=== PATIENT | male | born 1950 | race Caucasian/White ===

== ENCOUNTER → 2019-09-09 14:36 | Outpatient (BNVA) | payer MEDICARE, OTHER, SELFPAY | PROVIDERS: Family Provider Nurse Practitioner; PCP Nurse Practitioner; Visit Provider Urology | DX: R39.9 Unspecified symptoms and signs involving the genitourinary system (principal) | CPT/HCPCS: 81001 ==

== ENCOUNTER 2021-08-04 11:30 | Emergency (ER) | payer MEDICARE, OTHER, SELFPAY ==
--- NOTE | 2021-08-04 11:32 | ECG_ITS ---
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 Measurements Intervals [place] Rate: 63 P: 36 FL: 170 QRS: -24 QRSD: 92 T: 118 QT: 373 QTc: 383 Interpretive Statements SINUS RHYTHM BORDERLINE LEFT AXIS DEVIATION [QRS AXIS < -20] MODERATE ST DEPRESSION [0.05+ mV ST DEPRESSION] ABNORMAL QRS-T ANGLE [QRS-T AXIS DIFFERENCE > 60] Compared to ECG 03/18/2017 16:25:05 ST (T wave) deviation now present Myocardial infarct finding no longer present Electronically Signed On 08-06-2021 7:41:02 DIRECTOR OF CAREER RESOURCES by Dave Webber M.D. [id number]
--- NOTE | 2021-08-04 11:32 | XR_ITS ---
WS: [id number] Exam: XR chest 1V portable [id number] Date/Time of Exam: 08/04/2021 11:44 AM Reason For Exam: chest pain Comparison 06/19/2018 Findings: The lungs are clear and fully expanded. Costophrenic angles are sharp. No infiltrates. Bronchovascula r relief appears normal. Cardiac silhouette is unremarkable. Bony elements are intact. Scattered calc ified granulomas. XR/XR chest 1V portable [id number] IMPRESSION: Unremarkable chest radiograph.
[2021-08-04 11:35] VITALS: BP 117/56; PULSE 68; RESP 18; TEMP 37.1; O2SAT 99; BMI 35.5
--- NOTE | 2021-08-04 11:58 | W.ED.CHESTPA ---
HPI - Chest Pain General: Chief Complaint: Chest Pain Stated Complaint: CHEST PAIN Time Seen by Provider: 08/04/21 11:56 History of Present Illness: HPI narrative: Mr. Wooten is a 70-year-old gentleman with significant past medical history of CAD status post PCI, aortic valve sclerosis, and hypertension who presents to the emergency department due to chest pain. The exact time of onset of chest pain is somewhat unclear though he did wake his up at about 6:30 AM and noted. He describes sharp anterior chest pain which is just to the left of the sternum roughly around the nipple line and an area roughly the size of a fist. This varies in intensity however it is at worst is moderate. There are no specific provoking or exacerbating factors he has baseline shortness of breath that is not worse. He denies infectious symptoms. He does not have associated cold sweats or nausea. He tried nitroglycerin x2 without improvement in pain. Review of Systems General: Reports: 10 or more systems reviewed and unremarkable except in HPI and below PFSH ED PFSH: Medical History Aortic valve sclerosis Benign prostatic hyperplasia with lower urinary tract symptoms Coronary artery disease Essential hypertension H/O hand fracture Hx of aortic valve stenosis Lower urinary tract symptoms Surgical History H/O heart artery stent Family History Family/Other Diabetes CAD (coronary artery disease) Hypertension Cancer Multiple Social History Smoking and tobacco status: former smoker Alcohol intake: never Marital status: Current occupational status: retired Physical Exam Narrative: EXAM NARRATIVE: GENERAL/CONSTITUTIONAL - well-appearing. No acute distress. Obese Eyes - PERRL, no conjunctival injection ENMT - Atraumatic external nose and ears. Moist mucous membranes NECK - supple. trachea midline CARDIOVASCULAR - regular rate and rhythm. Systolic murmur. Normal peripheral perfusion. Trace peripheral edema RESPIRATORY - clear to auscultation bilaterally. No retractions or accessory muscle use. ABDOMEN/GI - Nontender, Nondistended. MSK - Extremities without obvious deformity or tenderness to palpation SKIN - Warm, Dry NEURO - alert and appropriately oriented. Moves all extremities equally. Course ED course: - Patient was seen and evaluated by me at bedside - Patient placed on cardiac monitors, IV access obtained - Initial evaluation notable for exam as noted above - Labs notable for no leukocytosis. No significant metabolic abnormalities to explain the patient's symptoms. Delta troponin negative - Imaging notable for no acute finding on chest x-ray - Upon serial reexamination after treatment the patient was similar to mildly improved - I discussed changes in EKG morphology with cardiology on-call, unclear exact cause however I do wonder the possibility of lead reversal given correction on third EKG - Based on patient history, evaluation, labs, and imaging as interpreted the most likely cause of the patient's condition is chest pain of unclear etiology. I offered admission which the patient declined. I discussed risk stratification of chest pain including the fact that the patient is moderate risk by heart score and requires further evaluation. Patient comfortable based on known estimated risk with outpatient follow-up and outpatient stress test. - The results of ED evaluation were discussed with the patient including prescriptions and/or symptomatic cares (if applicable) including appropriate and responsible use, followup plan, and return precautions. The patient verbalized understanding and felt safe for discharge. - Patient discharged in satisfactory condition. Vital Signs: Vital signs: Vital Signs Temperature 98.7 F 08/04/21 11:35 Pulse Rate 69 08/04/21 16:17 Respiratory Rate 18 08/04/21 16:17 Blood Pressure 130/92 08/04/21 16:17 Pulse Oximetry 96 08/04/21 16:17 MDM - Chest Pain Medical Records: Attestation: I reviewed the patient's medical records. Lab Data: Attestation: I reviewed the patient's lab results. Labs: Lab Results 08/04/21 08/04/21 08/04/21 12:28 12:28 12:28 WBC 6.4 10^3/uL 10^3/ uL (4.0-10.0) RBC 4.88 10^6/uL 10^6 /uL (4.1-5.3) Hgb 14.4 g/dL g/dL (11.7-16.6) Hct 43.3 % % (42.0-52.0) MCV 88.7 fl fl (80-94) MCH 29.5 pg pg (28.0-34.0) MCHC 33.3 g/dL g/dL (30.0-36.0) RDW 11.9 % L % (12.1-15.1) Plt Count 221 10^3/cmm 10^3 /cmm (130-400) MPV 9.5 fL fL (7.4-10.4) Neut % (Auto) 63.8 % % Lymph % (Auto) 23.4 % % [place] % (Auto) 6.3 % % Eos % (Auto) 5.2 % % Baso % (Auto) 1.1 % % Neut # (Auto) 4.09 10^3/uL 10^3 /uL (1.8-7.7) Lymph # (Auto) 1.5 10^3/uL 10^3/ uL (0.8-4.8) Sumner # (Auto) 0.4 10^3/uL 10^3/ uL (0.2-0.9) Eos # (Auto) 0.3 10^3/uL 10^3/ uL (0.0-0.8) Baso # (Auto) 0.1 10^3/uL 10^3/ uL (0.0-0.1) Nucleated RBC % (a uto) 0 % % Nucleated RBCs # 0.0 /100WBC /100W BC Sodium 137 mmol/L mmol/L (136-145) Potassium 4.2 mmol/L mmol/L (3.5-5.1) Chloride 101 mmol/L mmol/L (98-107) Carbon Dioxide 28 mmol/L mmol/L (22-29) Anion Gap 12.2 (5-19) BUN 11 mg/dL mg/dL (8-23) Creatinine 0.8 mg/dL mg/dL (0.7-1.2) GFR Calculation Not Reportable Glucose 111 mg/dL mg/dL (65-115) Calculated Osmolal ity 284 mOsm/kg L mOs m/kg (285-295) Calcium 8.7 mg/dL mg/dL (8.5-10.5) Total Bilirubin 0.3 mg/dL mg/dL (0.15-1.2) AST 16 U/L U/L (0-40) ALT 21 U/L U/L (0-41) Alkaline Phosphata se 77 IU/L IU/L (40-130) Troponin T Baselin e 13 ng/L ng/L (0-15) Troponin T 120 Min [place] Delta Troponin T NT-Pro-B Natriuret Pep 240 pg/mL H pg/mL (0-125) Total Protein 6.7 g/dL g/dL (6.6-8.7) Albumin 4.3 g/dL g/dL (3.5-5.2) Globulin 2.4 g/dL g/dL (1.3-4.6) Lipase 38 U/L U/L (13-60) 08/04/21 14:47 WBC RBC Hgb Hct MCV MCH MCHC RDW Plt Count MPV Neut % (Auto) Lymph % (Auto) Sumner % (Auto) Eos % (Auto) Baso % (Auto) Neut # (Auto) Lymph # (Auto) Sumner # (Auto) Eos # (Auto) Baso # (Auto) Nucleated RBC % (a uto) Nucleated RBCs # Sodium Potassium Chloride Carbon Dioxide Anion Gap BUN Creatinine GFR Calculation Glucose Calculated Osmolal ity Calcium Total Bilirubin AST ALT Alkaline Phosphata se Troponin T Baselin e Troponin T 120 Min [place] 11.36 ng/L ng/L (0-15) Delta Troponin T -1.64 ABS# L ABS# (0-10) NT-Pro-B Natriuret Pep Total Protein Albumin Globulin Lipase EKG Data^: EKG 1: Attestation: I personally reviewed and interpreted this EKG as follows: EKG interpretation date: 08/04/21 EKG interpretation time: 12:04 Interpretation: Twelve-lead EKG shows a regular rhythm at a rate of 63. SC interval 170, QRS duration 92, QTc 380. Left axis deviation. Interpretation: Sinus rhythm. Nonspecific ST segment abnormalities noted high lateral leads EKG 2: Attestation: I personally reviewed and interpreted this EKG as follows: EKG interpretation date: 08/04/21 EKG interpretation time: 14:25 Interpretation: Twelve-lead EKG shows a regular rhythm at a rate of 69. SC interval 169, QRS duration 97, QTc 397. Normal axis. Interpretation: Sinus rhythm. There is new T wave inversion though high lateral leads are normal in appearance at this time compared to prior EKG 3: Attestation: I personally reviewed and interpreted this EKG as follows: EKG interpretation date: 08/04/21 EKG interpretation time: 15:46 Interpretation: Twelve-lead EKG shows a regular rhythm at a rate of 63. SC interval 163, QRS duration 89, QTc 387. Left axis deviation. Interpretation: Sinus rhythm. Morphology appears similar to first EKG Discharge Plan Discharge Patient Disposition: Home Clinical Impression: Chest pain Condition: Stable Prescriptions: No Action triamcinolone acetonide 0.1 % cream 1 applic TOPICAL DAILY PRN (Reason: Rash) RF: 0 tamsulosin 0.4 mg capsule 0.4 mg PO DAILY RF: 0 baclofen 10 mg tablet 10 mg PO TID PRN (Reason: Pain) RF: 0 meloxicam 15 mg tablet 15 mg PO DAILY PRN (Reason: arthritis pain) RF: 0 aspirin 325 mg tablet 325 mg PO DAILY RF: 0 lovastatin 20 mg tablet 20 mg PO DAILY RF: 0 carvedilol 3.125 mg tablet 3.125 mg PO BID Qty: 180 RF: 3 omeprazole 20 mg capsule,delayed release(DR/EC) 20 mg PO BID Qty: 180 RF: 3 lisinopril 10 mg tablet 10 mg PO BID Qty: 180 RF: 3 nitroglycerin [Nitrostat] 0.4 mg tablet, sublingual 0.4 mg SUBLINGUAL Q5M PRN (Reason: chest pain) Qty: 25 RF: 3 Discharge Orders: Discharge ED (Routine); Ordered 08/04/21 Ordered By: Philippe Coronel Referrals: Erica Martinez APN [Primary Care Provider] - Discharge Diet: Usual diet Discharge Activity: Resume usual activity Patient Instructions: Chest Pain (ED) Activity Restrictions/Additional Instructions: Thank you for visiting the emergency department. You were seen and evaluated for chest pain. The exact cause of your symptoms is unclear however as discussed does require further evaluation. You are moderate risk by HEART score. I will message our case management social worker and arrange for outpatient stress test. Please follow-up with your primary care provider. Return to the emergency department for anything that you concerned about and feel needs emergency department evaluation. Coding Level of Care Code ED Passenger Conductor for Jesica Romero
[2021-08-04] MEDS: aspirin 81 mg Chew Tablet 324 MG PO (12:19)
[2021-08-04 12:24] VITALS: BP 129/53; PULSE 71; RESP 18; O2SAT 98
--- NOTE | 2021-08-04 12:26 | PC.NURSE ---
Continual cardiac, BP, and SpO2 monitoring initiated upon arrival into room.
[2021-08-04 12:34] LABS: Basophils # 0.1 10^3/uL (0.0-0.1); Basophils % 1.1 %; Eosinophils # 0.3 10^3/uL (0.0-0.8); Eosinophils % 5.2 %; Hematocrit 43.3 % (42.0-52.0); Hemoglobin 14.4 g/dL (11.7-16.6); Lymphocytes # 1.5 10^3/uL (0.8-4.8); Lymphocytes % 23.4 %; Mean Corpuscular HGB Conc 33.3 g/dL (30.0-36.0); Mean Corpuscular Hemoglobin 29.5 pg (28.0-34.0); Mean Corpuscular Volume 88.7 fl (80-94); Mean Platelet Volume 9.5 fL (7.4-10.4); Monocytes # 0.4 10^3/uL (0.2-0.9); Monocytes % 6.3 %; Neutrophils # 4.09 10^3/uL (1.8-7.7); Neutrophils % 63.8 %; Nucleated Red Blood Cells % 0 %; Platelet Count 221 10^3/cmm (130-400); Red Blood Count 4.88 10^6/uL (4.1-5.3); Red Cell Distribution Width 11.9 % (12.1-15.1); White Blood Count 6.4 10^3/uL (4.0-10.0)
[2021-08-04 13:18] LABS: Troponin(5th) Baseline 13 ng/L (0-15)
[2021-08-04 13:24] LABS: Alanine Aminotransferase 21 U/L (0-41); Albumin Level 4.3 g/dL (3.5-5.2); Alkaline Phosphatase 77 IU/L (40-130); Anion Gap 12.2 (5-19); Aspartate Amino Transferase 16 U/L (0-40); Blood Urea Nitrogen 11 mg/dL (8-23); Calcium 8.7 mg/dL (8.5-10.5); Carbon Dioxide 28 mmol/L (22-29); Chloride 101 mmol/L (98-107); Creatinine Clr Calc Pharmacy 93.6723; Globulin 2.4 g/dL (1.3-4.6); Glucose 111 mg/dL (65-115); Lipase 38 U/L (13-60); NT Pro B Type Natriuretic Pept 240 pg/mL (0-125); Osmolality Calculated 284 mOsm/kg (285-295); Potassium 4.2 mmol/L (3.5-5.1); Sodium 137 mmol/L (136-145); Total Bilirubin 0.3 mg/dL (0.15-1.2); Total Protein 6.7 g/dL (6.6-8.7)
--- NOTE | 2021-08-04 13:32 | ECG_ITS ---
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 Measurements Intervals [place] Rate: 69 P: 15 [place]: 169 QRS: 77 QRSD: 97 T: -54 QT: 378 QTc: 407 Interpretive Statements SINUS RHYTHM ST DEVIATION AND MODERATE T-WAVE ABNORMALITY, CONSIDER INFERIOR ISCHEMIA [-0.1+ mV T-WAVE IN II/aVF] Compared to ECG 08/04/2021 11:43:36 T-wave abnormality now present Possible ischemia now present ST (T wave) deviation no longer present Electronically Signed On 08-06-2021 7:48:08 ELECTRONICS ENGINEER by Dave Webber M.D. [id number]
[2021-08-04 15:25] LABS: Troponin 5 2HR 11.36 ng/L (0-15)
[2021-08-04 15:27] LABS: Troponin 5 2HR Delta -1.64 ABS# (0-10)
[2021-08-04 16:17] VITALS: BP 130/92; PULSE 69; RESP 18; O2SAT 96
--- NOTE | 2021-08-08 15:24 | DCPLANNER ---
manager diabetes had message to schedule an outpatient stress test for patient. manager diabetes faxed signed order to centralized scheduling, who will call patient with appointment information.
--- NOTE | 2021-08-12 15:01 | DCPLANNER ---
Addendum entered by Gila Wooten 08/19/21 06:53: Patient had a follow up appointment scheduled for 08.17.21 with Whitney Wilde at [facility] - patient did attend appointment. Addendum entered by Gila Wooten 08/19/21 06:52: Patients was notified about appointment. Original Note: region manager had message to schedule a follow up appointment for patient with [facility]. region manager called [facility], spoke with Jami, gave clinic patients information. A follow up appointment was scheduled for Sunday, August 17, 2021 at 1:15 with RADIOLOGY ASSISTANT, Whitney Wilde. region manager called phone number [phone] and [phone], unable to speak with patient at this time, and unable to leave a voicemail for patient.
--- NOTE | 2021-09-21 09:31 | DCPLANNER ---
Patient had a stress test scheduled - patient did not attend appointment. Patient had a follow up appointment scheduled with [facility] - patient did attend appointment.
== END 2021-08-04 16:12 | disposition home or self-care (01) ==
PROVIDERS: Emergency Provider Emergency Medicine; PCP Nurse Practitioner
DX: R07.9 Chest pain, unspecified (principal); Z79.82 Long term (current) use of aspirin; I25.10 Atherosclerotic heart disease of native coronary artery without angina pectoris; I10 Essential (primary) hypertension; Z87.891 Personal history of nicotine dependence
CPT/HCPCS: 36415; 71045; 80053; 83690; 83880; 84484; 85025; 93005; 99284

== ENCOUNTER 2021-09-27 20:53 | Emergency (ER) | payer MEDICARE, OTHER, SELFPAY ==
[2021-09-27] VITALS (11 sets, daily range): BP systolic 124–147; BP diastolic 46–53; PULSE 74–83; RESP 16–22; TEMP 37.2; O2SAT 96–98; BMI 34.7
--- NOTE | 2021-09-27 21:02 | XRR_ITS ---
PROCEDURE INFORMATION: Exam: XR Chest Exam date and time: 09/27/2021 9:02 PM Age: 70 years old Clinical indication: Chest pressure; Prior surgery; Surgery type: Coronary stent; Patient HX: C/O chest pain. TECHNIQUE: Imaging protocol: XR of the chest. Views: 1 view. COMPARISON: CR XR chest 1V portable [id number] 08/04/2021 11:45 AM FINDINGS: Lungs: Unremarkable. No consolidation. Pleural spaces: Unremarkable. No pleural effusion. No pneumothorax. Heart/Mediastinum: Unchanged Bones/joints: No acute findings. XR/XR chest 1V portable [id number] IMPRESSION: No acute findings.
[2021-09-27 21:47] LABS: Basophils # 0.1 10^3/uL (0.0-0.1); Basophils % 1.1 %; Eosinophils # 0.3 10^3/uL (0.0-0.8); Eosinophils % 3.9 %; Hematocrit 42.7 % (42.0-52.0); Hemoglobin 14.4 g/dL (11.7-16.6); Lymphocytes # 1.6 10^3/uL (0.8-4.8); Lymphocytes % 23.9 %; Mean Corpuscular HGB Conc 33.7 g/dL (30.0-36.0); Mean Corpuscular Hemoglobin 29.6 pg (28.0-34.0); Mean Corpuscular Volume 87.7 fl (80-94); Mean Platelet Volume 9.3 fL (7.4-10.4); Monocytes # 0.5 10^3/uL (0.2-0.9); Monocytes % 6.9 %; Neutrophils # 4.23 10^3/uL (1.8-7.7); Neutrophils % 63.9 %; Nucleated Red Blood Cells % 0 %; Platelet Count 213 10^3/cmm (130-400); Red Blood Count 4.87 10^6/uL (4.1-5.3); Red Cell Distribution Width 11.9 % (12.1-15.1); White Blood Count 6.6 10^3/uL (4.0-10.0)
[2021-09-27 22:14] LABS: Anion Gap 16.6 (5-19); Blood Urea Nitrogen 21 mg/dL (8-23); Carbon Dioxide 24 mmol/L (22-29); Chloride 101 mmol/L (98-107); Creatinine Clr Calc Pharmacy 82.2983; Glucose 168 mg/dL (65-115); Osmolality Calculated 291 mOsm/kg (285-295); Potassium 4.6 mmol/L (3.5-5.1); Sodium 137 mmol/L (136-145)
[2021-09-27 22:16] LABS: Troponin(5th) Baseline 14 ng/L (0-15)
--- NOTE | 2021-09-27 22:47 | ED_ITS ---
Documented by User: Tyrone Isidro MD 09/27/21 22:56 HPI - General Adult General: Chief complaint: Chest Pain Stated complaint: CP Time Seen by Provider: 09/27/21 21:01 History of Present Illness: This is a 70 yo patient hx of CAD s/p stents x 2 presenting to the ED complaining of acute sudden onset intermittent achy chest pain this morning WITHOUT radiation to the back or shoulders. Patient took 3 nitro and 1 baby ASA without relief of symptoms. No associated with shortness of breath, chest pain or dyspnea on exertion. Pain is not tearing in nature and does not radiate to the back. Pain not associated with vomiting or PO intake. Denies any recent sympathomimetic drug use. Patient denies any cough. Denies palpitations, dysphagia, diaphoresis, radiation of pain to bilateral arms, jaw. Denies F/N/V/D. Patient denies any recent immobility, surgery, unilateral leg swelling, or prior PE. Patient denies any orthopnea. Onset: earlier today Duration: ongoing for the last day Location: home Severity: mild/moderate Associated symptoms: Reports chest pain; Deny dyspnea, nausea, rash, palpitations or vomiting Review of Systems Const: Denies: fever(s) or chills Eyes: Denies: change in vision ENMT: Denies: mouth pain Card: Reports: chest pain; Denies: palpitations Resp: Denies: dyspnea or non-productive cough GI: Denies: abdominal pain, nausea, vomiting or diarrhea : Denies: dysuria Musc: Denies: extremity pain Skin/Breast: Denies: rash or new lesions Neuro: Denies: weakness in extremities Psych: Reports: other (Normal mood) Ramon/Lymph: Denies: easy bruising PFSH ED PFSH: Medical History Aortic valve sclerosis Benign prostatic hyperplasia with lower urinary tract symptoms Coronary artery disease Essential hypertension H/O hand fracture Hx of aortic valve stenosis Lower urinary tract symptoms Surgical History H/O heart artery stent Family History Family/Other Diabetes CAD (coronary artery disease) Hypertension Cancer Multiple Social History Alcohol intake: never Marital status: Current occupational status: retired Physical Exam Const: COMMON NORMALS: alert HENMT: COMMON NORMALS: atraumatic HEAD & SCALP: atraumatic MOUTH: moist mucous membranes not abnormal Eye: COMMON NORMALS: EOMs intact bilaterally and conjunctivae normal CONJUNCTIVA: Yes conjunctivae normal Neck/C-Spine: COMMON NORMALS: full ROM and supple Resp: COMMON NORMALS: normal respiratory effort and clear to auscultation bilaterally AUSCULTATION: clear to auscultation bilaterally Cardio: COMMON NORMALS: regular rate RATE: regular rate OTHER: 2+ UE pulses GI: COMMON NORMALS: Soft to palpation and non-tender PALPATION: Yes Soft to palpation Extremity: COMMON NORMALS: full ROM Neuro: SENSORIUM/ORIENTATION: Yes alert MOTOR EXAM: No Abnormal motor strength present and Other motor observations present (no focal motor deficits) Psych: COMMON NORMALS: speech normal SPEECH: Yes normal speech MOOD & AF FECT: Yes euthymic mood Course Vital Signs: Vital signs: Vital Signs Temperature 99 F 09/27/21 21:02 Pulse Rate 74 09/27/21 22:40 Respiratory Rate 22 H 09/27/21 22:40 Blood Pressure 124/53 09/27/21 22:40 Pulse Oximetry 97 09/27/21 22:40 MDM - General Adult Medical Decision Making [70]yo patient w/ hx of CAD s/p stents x 2 presenting to the ED with evaluation of new onset of achy chest pain since AM. HDS, pulse 2+ radially bilaterally, no signs of fluid overload, AAOx3, neuro exam intact. Given History and Exam today I have no suspicion for ACS, Pneumothorax, Pneumonia, Pulmonary Embolus, Tamponade, Aortic Dissection or other emergent problems as a cause for this presentation. Workup: ECG x 2, CXR, CBC, BMP, Troponin x 2 Interventions: Nitro SL for pain EKG showing regular sinus rhythm at HT of [69]. Normal axis. No ST elevations/depressions to suggest coronary occlusion. Normal OR, QRS, QT intervals. No overt evidence of STEMI, hyperacute T waves, localizable STD or T wave inversions. No evidence of Brugada?s sign, delta wave, epsilon wave, s ignificantly prolonged QTc, or malignant arrhythmia. No Q waves. CXR: Without PTX, PNA, or widened mediastinum. Initial troponin wnl. EKG initial is nonishcemic. I have no suspicion for aortic dissection given no widened mediastinum, 2+ upper extremity pulses, or tearing pain. No suspicion for PE given no pleuritic chest pain, recent immobilization or surgery hemoptysis, or other VTE risk factors. EKG is non- ischemic. XR normal. At 10:15pm I performed shared decision-making with patient regarding admission versus discharge today with the patient and his , and patient prefers to be discharged on THREE separate occasions. I ahve discussed given patient's extensive cardiovascular risk factors w/ stents that have not been checked recently that je would better off admitted to the hospital. However, upon hearing the need to be admitted, patient declined and elected to go home with close followup with Caridology. I explained the risks of leaving the hospital today including lethal arrhythmia, NC, and even . Patient verbalizes understanding of these discussed risk and elect for the alternative of following up earlier next week if the delta troponin is wnl. Patient verbalizes understanding to return for any worsening symptoms including chest pain, dyspnea, fatigue, arm pain/jaw pain/back pain or any new or concerning issues. I have given patient follow up with our briefcase sewer to be seen by our outpatient Cardiology for close follow up for chest pain given extensive risk facotrs. Patient aware of a call from our briefcase sewer to schedule for appointment(s) and verbalizes understanding of the importance of following up. Case signed out to Dr. Cool pending delta troponin and reassessment Lab Data : 09/27/21 21:30 09/27/21 21:30 Radiology Impressions Chest X-Ray 09/27/21 21:02 IMPRESSION: No acute findings. Laboratory Results WBC 6.6 10^3/uL (4.0-10.0) 09/27/21 21: RBC 4.87 10^6/uL (4.1-5.3) 09/27/21 21:30 Hgb 14.4 g/dL (11.7-16.6) 09/27/21 21:30 Hct 42.7 % (42.0-52.0) 09/27/21 21: MCV 87.7 fl (80-94) 09/27/21 21:30 MCH 29.6 pg (28.0-34.0) 09/27/21 21:30 MCHC 33.7 g/dL (30.0-36.0) 09/27/21 21:30 RDW 11.9 % (12.1-15.1) L 09/27/21 21:30 Plt Count 213 10^3/cmm (130-400) 09/27/21 21:30 MPV 9.3 fL (7.4-10.4) 09/27/21 21: Neut % (Auto) 63.9 % 09/27/21 21:30 Lymph % (Auto) 23.9 % 09/27/21 21:30 Anderson % (Auto) 6.9 % 09/27/21 21: Eos % (Auto) 3.9 % 09/27/21: Baso % (Auto) 1.1 % 09/27/21: Neut # (Auto) 4.23 10^3/uL (1.8-7.7) 09/27/21: Lymph # (Auto) 1.6 10^3/uL (0.8-4.8) 09/27/21 21: Anderson # (Auto) 0.5 10^3/uL (0.2-0.9) 09/27/21 21:30 Eos # (Auto) 0.3 10^3/uL (0.0-0.8) 09/27/21 21: Baso # (Auto) 0.1 10^3/uL (0.0-0.1) 09/27/21: Nucleated RBC % (auto) 0 % 09/27/21: Nucleated RBCs # 0.0 /100WBC 09/27/21 21:30 Sodium 137 mmol/L (136-145) 09/27/21 21: Potassium 4.6 mmol/L (3.5-5.1) 09/27/21: Chloride 101 mmol/L (98-107) 09/27/21 21: Carbon Dioxide 24 mmol/L (22-29) 09/27/21: Anion Gap 16.6 (5-19) 09/27/21:30 BUN 21 mg/dL (8-23) 09/27/21: Creatinine 0.9 mg/dL (0.7-1.2) 09/27/21 21:30 GFR Calculation Not Reportable 09/27/21 21:30 Glucose 168 mg/dL (65-115) H 09/27/21 21:30 Calculated Osmolality 291 mOsm/kg (285-295) 09/27/21 21:30 Calcium 9.0 mg/dL (8.5-10.5) 09/27/21 21:30 Troponin T Baseline 14 ng/L (0-15) 09/27/21 21:30 Troponin T 120 Minute 15.53 ng/L (0-15) H 09/27/21 23:39 Delta Troponin T 1.53 ABS# (0-10) 09/27/21 23:39 Imaging Data Other Imaging: Radiologist's impression: [id number] [id number] XRay Report Signed Patient: Trent Wooten Unit #: [id number] : 1950 Age/Sex: 70 / M ADM Date: 09/27/21 Loc: ER Room/Bed: Attending Dr: Ordering Provider/Ordering MD: Tyrone Isidro MD Date of Service: 09/27/21 Procedure(s): XR chest 1V portable [id number] Accession Number(s): [id number] Report Number: [id number] PROCEDURE INFORMATION: Exam: XR Chest Exam date and time: 09/27/2021 9:02 PM Age: 70 years old Clinical indication: Chest pressure; Prior surgery; Surgery type: Coronary stent; Patient HX: C/O chest pain. TECHNIQUE: Imaging protocol: XR of the chest. Views: 1 view. COMPARISON: CR XR chest 1V portable [id number] 08/04/2021 11:45 AM FINDINGS: Lungs: Unremarkable. No consolidation. Pleural spaces: Unremarkable. No pleural effusion. No pneumothorax. Heart/Mediastinum: Unchanged Bones/joints: No acute findings. XR/XR chest 1V portable [id number] IMPRESSION: No acute findings. ? Dictated By: Rishi Verdin MD Signed By: Rishi Verdin MD Signed Date/Time: 09/27/212206 DD/ 01 Discharge Plan Discharge Patient Disposition: Home Clinical Impression: Chest pain Condition: Stable Prescriptions: No Action triamcinolone acetonide 0.1 % cream 1 applic TOPICAL DAILY PRN (Reason: Rash) 0RF tamsulosin 0.4 mg capsule 0.4 mg PO DAILY 0RF baclofen 10 mg tablet 10 mg PO TID PRN (Reason: Pain) 0RF meloxicam 15 mg tablet 15 mg PO DAILY PRN (Reason: arthritis pain) 0RF aspirin 325 mg tablet 325 mg PO DAILY 0RF lovastatin 20 mg tablet 20 mg PO DAILY 0RF omeprazole 20 mg capsule,delayed release(DR/EC) 20 mg PO BID Qty: 180 3RF lisinopril 10 mg tablet 10 mg PO BID Qty: 180 3RF nitroglycerin [Nitrostat] 0.4 mg tablet, sublingual 0.4 mg SUBLINGUAL Q5M PRN (Reason: chest pain) Qty: 25 3RF carvedilol 3.125 mg tablet 3.125 mg PO BID Qty: 180 3RF Discharge Orders: Discharge ED (Routine); Ordered 09/28/21 Ordered By: Nawaf Cool Referrals: Erica Martinez APN [Primary Care Provider] - Discharge Diet: Advance as tolerated Discharge Activity: Increase activity as tolerated Patient Instructions: Chest Pain (ED) Activity Restrictions/Additional Instructions: Come back to the emergency room if your chest pain worsens, have any fever or chills, worsening shortness of breath, worsening exertional lightheadedness, or any new or concerning complaints. Our briefcase sewer will have you follow-up with Dr. Granger in the next few days. You would be expected to have a phone call with our briefcase sewer who will put you on the schedule. Coding Level of Care Code ED Testing Coordinator for Chg Fwd Exam Comprehensive Documented by User: Nawaf Cool MD 09/28/21 00:31 HPI - General Adult General: Chief complaint: Chest Pain Stated complaint: CP Time Seen by Provider: 09/27/21 21:01 [facility] ED PFSH: Medical History Aortic valve sclerosis Benign prostatic hyperplasia with lower urinary tract symptoms Coronary artery disease Essential hypertension H/O hand fracture Hx of aortic valve stenosis Lower urinary tract symptoms Surgical History H/O heart artery stent Family History Family/Other Diabetes CAD (coronary artery disease) Hypertension Cancer Multiple Social History Alcohol intake: never Marital status: Current occupational status: retired Course Vital Signs: Vital signs: Vital Signs Temperature 99 F 09/27/21 21:02 Pulse Rate 74 09/27/21 22:40 Respiratory Rate 22 H 09/27/21 22:40 Blood Pressure 124/53 09/27/21 22:40 Pulse Oximetry 97 09/27/21 22:40 MDM - General Adult Medical Decision Making [70]yo patient w/ hx of CAD s/p stents x 2 presenting to the ED with evaluation of new onset of achy chest pain since AM. HDS, pulse 2+ radially bilaterally, no signs of fluid overload, AAOx3, neuro exam intact. Given History and Exam today I have no suspicion for ACS, Pneumothorax, Pneumonia, Pulmonary Embolus, Tamponade, Aortic Dissection or other emergent problems as a cause for this presentation. Workup: ECG x 2, CXR, CBC, BMP, Troponin x 2 Interventions: Nitro SL for pain EKG showing regular sinus rhythm at HT of [69]. Normal axis. No ST e levations/depressions to suggest coronary occlusion. Normal OR, QRS, QT intervals. No overt evidence of STEMI, hyperacute T waves, localizable STD or T wave inversions. No evidence of Brugada?s sign, delta wave, epsilon wave, significantly prolonged QTc, or malignant arrhythmia. No Q waves. CXR: Without PTX, PNA, or widened mediastinum. Initial troponin wnl. EKG initial is nonishcemic. I have no suspicion for aortic dissection given no widened mediastinum, 2+ upper extremity pulses, or tearing pain. No suspicion for PE given no pleuritic chest pain, recent immobilization or surgery hemoptysis, or other VTE risk factors. EKG is non- ischemic. XR normal. At 10:15pm I performed shared decision-making with patient regarding admission versus discharge today with the patient and his , and patient prefers to be discharged on THREE separate occasions. I ahve discussed given patient's ex tensive cardiovascular risk factors w/ stents that have not been checked recently that je would better off admitted to the hospital. However, upon hearing the need to be admitted, patient declined and elected to go home with close followup with Caridology. I explained the risks of leaving the hospital today including lethal arrhythmia, NC, and even . Patient verbalizes understanding of these discussed risk and elect for the alternative of following up earlier next week if the delta troponin is wnl. Patient verbalizes understanding to return for any worsening symptoms including chest pain, dyspnea, fatigue, arm pain/jaw pain/back pain or any new or concerning issues. I have given patient follow up with our briefcase sewer to be seen by our outpatient Cardiology for close follow up for chest pain given extensive risk facotrs. Patient aware of a call from our briefcase sewer to schedule for appointment(s) and verbalizes understanding of the importance of following up. Case signed out to Dr. Cool pending delta troponin and reassessment Patient presents here with chest pain repeat troponin here is negative he is well-appearing stable for discharge is to follow-up with cardiology return if worsening. Lab Data : 09/27/21 21:30 09/27/21 21: Radiology Impressions Chest X-Ray 09/27/21 21: IMPRESSION: No acute findings. Laboratory Results WBC 6.6 10^3/uL (4.0-10.0) 09/27/21: RBC 4.87 10^6/uL (4.1-5.3) 09/27/21 21: Hgb 14.4 g/dL (11.7-16.6) 09/27/21: Hct 42.7 % (42.0-52.0) 09/27/21: MCV 87.7 fl (80-94) 09/27/21 21: MCH 29.6 pg (28.0-34.0) 09/27/21 21: MCHC 33.7 g/dL (30.0-36.0) 09/27/21:30 RDW 11.9 % (12.1-15.1) L 09/27/21 21:30 Plt Count 213 10^3/cmm (130-400) 09/27/21 21:30 MPV 9.3 fL (7.4-10.4) 09/27/21 21:30 Neut % (Auto) 63.9 % 09/27/21 21:30 Lymph % (Auto) 23.9 % 09/27/21 21:30 Anderson % (Auto) 6.9 % 09/27/21 21:30 Eos % (Auto) 3.9 % 09/27/21 21:30 Baso % (Auto) 1.1 % 09/27/21:30 Neut # (Auto) 4.23 10^3/uL (1.8-7.7) 09/27/21: Lymph # (Auto) 1.6 10^3/uL (0.8-4.8) 09/27/21 21:30 Anderson # (Auto) 0.5 10^3/uL (0.2-0.9) 09/27/21 21:30 Eos # (Auto) 0.3 10^3/uL (0.0-0.8) 09/27/21 21:30 Baso # (Auto) 0.1 10^3/uL (0.0-0.1) 09/27/21 21:30 Nucleated RBC % (auto) 0 % 09/27/21: Nucleated RBCs # 0.0 /100WBC 09/27/21 21:30 Sodium 137 mmol/L (136-145) 09/27/21 21:30 Potassium 4.6 mmol/L (3.5-5.1) 09/27/21 21:30 Chloride 101 mmol/L (98-107) 09/27/21 21:30 Carbon Dioxide 24 mmol/L (22-29) 09/27/21 21:30 Anion Gap 16.6 (5-19) 09/27/21 21:30 BUN 21 mg/dL (8-23) 09/27/21 21:30 Creatinine 0.9 mg/dL (0.7-1.2) 09/27/21 21:30 GFR Calculation Not Reportable 09/27/21:30 Glucose 168 mg/dL (65-115) H 02/01/22 21:30 Calculated Osmolality 291 mOsm/kg (285-295) 09/27/21 21:30 Calcium 9.0 mg/dL (8.5-10.5) 09/27/21 21:30 Troponin T Baseline 14 ng/L (0-15) 09/27/21 21:30 Troponin T 120 Minute 15.53 ng/L (0-15) H 09/27/21 23:39 Delta Troponin T 1.53 ABS# (0-10) 09/27/21 23:39 Discharge Plan Discharge Patient Disposition: Home Clinical Impression: Chest pain Condition: Stable Prescriptions: No Action triamcinolone acetonide 0.1 % cream 1 applic TOPICAL DAILY PRN (Reason: Rash) 0RF tamsulosin 0.4 mg capsule 0.4 mg PO DAILY 0RF baclofen 10 mg tablet 10 mg PO TID PRN (Reason: Pain) 0RF meloxicam 15 mg tablet 15 mg PO DAILY PRN (Reason: arthritis pain) 0RF aspirin 325 mg tablet 325 mg PO DAILY 0RF lovastatin 20 mg tablet 20 mg PO DAILY 0RF omeprazole 20 mg capsule,delayed release(DR/EC) 20 mg PO BID Qty: 180 3RF lisinopril 10 mg tablet 10 mg PO BID Qty: 180 3RF nitroglycerin [Nitrostat] 0.4 mg tablet, sublingual 0.4 mg SUBLINGUAL Q5M PRN (Reason: chest pain) Qty: 25 3RF carvedilol 3.125 mg tablet 3.125 mg PO BID Qty: 180 3RF Discharge Orders: Discharge ED (Routine); Ordered 09/28/21 Ordered By: Nawaf Cool Referrals: Erica Martinez, [facility] [Primary Care Provider] - Discharge Diet: Advance as tolerated Discharge Activity: Increase activity as tolerated Patient Instructions: Chest Pain (ED) Activity Restrictions/Additional Instructions: Come back to the emergency room if your chest pain worsens, have any fever or chills, worsening shortness of breath, worsening exertional lightheadedness, or any new or concerning complaints. Our briefcase sewer will have you follow-up with Dr. Granger in the next few days. You would be expected to have a phone call with our briefcase sewer who will put you on the schedule. Coding Level of Care Code ED Testing Coordinator for Bretg Fwd Exam Comprehensive
[2021-09-28 00:13] LABS: Troponin 5 2HR 15.53 ng/L (0-15)
[2021-09-28 00:21] LABS: Troponin 5 2HR Delta 1.53 ABS# (0-10)
[2021-09-28 01:21] VITALS: BP 131/54; PULSE 73; RESP 16; TEMP 36.7; O2SAT 97
[2021-09-28 01:26] VITALS: BP 131/54; PULSE 73; RESP 18; TEMP 36.7; O2SAT 97
--- NOTE | 2021-09-28 11:12 | DCPLANNER ---
information technology project manager had message to schedule a follow up appointment for patient with [facility]. information technology project manager called [facility], spoke with Odilia, gave clinic patients information. A follow up appointment was scheduled for Tuesday, October 05, 2021 at 10:15 with Whitney Wilde. information technology project manager called patient, spoke with patients , gave her the appointment information.
== END 2021-09-28 01:28 | disposition home or self-care (01) ==
PROVIDERS: Emergency Medicine; Emergency Provider Emergency Medicine; PCP Nurse Practitioner
DX: R07.9 Chest pain, unspecified (principal); Z79.82 Long term (current) use of aspirin; I25.10 Atherosclerotic heart disease of native coronary artery without angina pectoris; I10 Essential (primary) hypertension
CPT/HCPCS: 36415; 71045; 80048; 84484; 85025; 99283

== ENCOUNTER 2021-10-06 08:41 | Outpatient (CLI) | payer MEDICARE, OTHER, SELFPAY ==
--- NOTE | 2021-10-06 08:45 | USCV_ITS ---
Trent Wooten Age: 70 Gender: M : 1950 Exam Date: 10/06/2021 09:12 Ordering Phys: Whitney Wilde Technologist: Exam Location: [facility] [place] Indication: BP: 140 / 82 HR: 66 Rhythm: Sinus Technical Quality: Adequate MEASUREMENTS (Male / Female) Normal Values 2D ECHO LV Diastolic Diameter PLAX 4.6 cm 4.2 - 5.9 / 3.9 - 5.3 cm LV Systolic Diameter PLAX 2.9 cm IVS Diastolic Thickness 1.3 cm 0.6 - 1.0 / 0.6 - 0.9 cm IVS Systolic Thickness 1.7 cm LVPW Diastolic Thickness 1.3 cm 0.6 - 1.0 / 0.6 - 0.9 cm LVPW Systolic Thickness 1.7 cm LVOT Diameter 2.0 cm LV Ejection Fraction 2D Teich 66.4 % LV Ejection Fraction MOD 2C 62.8 % LV Ejection Fraction 2C AL 64.1 % LA Diameter 3.8 cm Aorta at Sinotubular Diameter 2.8 cm M-MODE Aortic Annulus Diameter 2.7 cm LA Ao Ratio MM 1.5 MV E Point Septal Separation 1.8 cm DOPPLER AV Peak Velocity 562.3 cm/s LVOT Peak Velocity 102.0 cm/s AV Area Cont Eq vti 0.7 cm squared AV Area Cont Eq pk 0.6 cm squared MV Area PHT 3.1 cm squared Mitral E to A Ratio 0.9 MV E' Velocity 55.0 cm/s Mitral E to MV E' Ratio 13.7 Mitral E to LV E' Lateral Ratio 10.9 Mitral E to LV E' Septal Ratio 18.8 TR Peak Velocity 327.0 cm/s TR Peak Gradient 42.8 mmHg TV Peak E Velocity 93.0 cm/s Right Atrial Pressure 3.0 mmHg Pulmonary Artery Systolic Pressu 45.8 mmHg PV Peak Velocity 110.0 cm/s RV Acceleration Time 0.0 s FINDINGS Left Ventricle Normal left ventricular cavity size. Normal left ventricular systolic function. No regional wall motion abnormalities. Left ventricular ejection fraction is estimated at 60 %. Grade I/IV diastolic dysfunction (abnormal relaxation filling pattern), normal to mildly elevated filling pressures. Right Ventricle The right ventricle is normal in size and function. Moderate pulmonary hypertension, RVSP 45.8 mmHg. Right Atrium The right atrium is normal in size. Left Atrium The left atrium is normal in size. Mitral Valve Moderately thickened mitral valve. Severe mitral annular calcification. No mitral valve stenosis.no mitral valve regurgitation. Aortic Valve Severe aortic valve calcification. Severe aortic valve stenosis, mean gradient 64.5 mmHg, MICKIE 0.73 cm squared. Velocity across the aortic valve is 5.6 m/s .trace aortic valve regurgitation. Tricuspid Valve Structurally normal tricuspid valve without significant stenosis or regurgitation. Pulmonic Valve Structurally normal pulmonic valve without significant stenosis. There is no pulmonic regurgitation. Pericardium Normal pericardium without effusion. Aorta Normal ascending aorta dimension. CONCLUSIONS 1-Normal left ventricular cavity size. Normal left ventricular systolic function. No regional wall motion abnormalities. Left ventricular ejection fraction is estimated at 60 %. Grade I/IV diastolic dysfunction (abnormal relaxation filling pattern), normal to mildly elevated filling pressures. 2-Severe aortic valve calcification. Severe aortic valve stenosis, mean gradient 64.5 mmHg, MICKIE 0.73 cm squared. Velocity across the aortic valve is 5.6 m/s .trace aortic valve regurgitation. 3-Moderately thickened mitral valve. Severe mitral annular calcification. No mitral valve stenosis.no mitral valve regurgitation. 4-The right ventricle is normal in size and function. Moderate pulmonary hypertension, RVSP 45.8 mmHg. 5-There is no pericardial effusion. 6-Right atrial pressure is around 5 mm of mercury. 7-When compared to the prior echocardiogram dated August 07, 2019 there is worsening of aortic stenosis from moderate to severe now. Ian Coyne MD (Electronically Signed) Final Date: 06 October 2021 19:24 S
== END 2021-10-06 08:42 | disposition home or self-care (01) ==
LOC: RAD 08:58
PROVIDERS: PCP Nurse Practitioner; Visit Provider Nurse Practitioner Family
DX: I35.8 Other nonrheumatic aortic valve disorders (principal); I05.9 Rheumatic mitral valve disease, unspecified; I27.20 Pulmonary hypertension, unspecified
CPT/HCPCS: 93306

== ENCOUNTER 2021-12-04 16:41 | Emergency (ER) | payer MEDICARE, OTHER, SELFPAY ==
--- NOTE | 2021-12-04 16:57 | XRR_ITS ---
PROCEDURE INFORMATION: Exam: XR Chest Exam date and time: 12/04/2021 5:24 PM Age: 70 years old Clinical indication: Pain; Chest pressure; Additional info: Chest pain TECHNIQUE: Imaging protocol: XR of the chest. Views: 1 view. COMPARISON: CR XR chest 1V portable [id number] 09/27/2021 9:35 PM FINDINGS: Lungs: Several tiny calcified granulomas are again seen in the lungs. No acute airspace process is visualized. Pleural spaces: Unremarkable. No pleural effusion. No pneumothorax. Heart/Mediastinum: Unremarkable. No cardiomegaly. Bones/joints: Unremarkable. XR/XR chest 1V portable [id number] IMPRESSION: No acute cardiopulmonary abnormality.
[2021-12-04 16:58] VITALS: BP 170/61; PULSE 70; RESP 13; TEMP 36.6; O2SAT 98; BMI 36.3
[2021-12-04 17:51] LABS: Basophils # 0.1 10^3/uL (0.0-0.1); Basophils % 1.2 %; Eosinophils # 0.3 10^3/uL (0.0-0.8); Eosinophils % 4.5 %; Hematocrit 43.3 % (42.0-52.0); Hemoglobin 14.4 g/dL (11.7-16.6); Lymphocytes # 1.5 10^3/uL (0.8-4.8); Lymphocytes % 22.9 %; Mean Corpuscular HGB Conc 33.3 g/dL (30.0-36.0); Mean Corpuscular Hemoglobin 29.3 pg (28.0-34.0); Mean Corpuscular Volume 88.2 fl (80-94); Mean Platelet Volume 9.3 fL (7.4-10.4); Monocytes # 0.6 10^3/uL (0.2-0.9); Monocytes % 9.1 %; Neutrophils # 3.99 10^3/uL (1.8-7.7); Nucleated Red Blood Cells % 0 %; Platelet Count 210 10^3/cmm (130-400); Red Blood Count 4.91 10^6/uL (4.1-5.3); White Blood Count 6.5 10^3/uL (4.0-10.0)
[2021-12-04 18:14] LABS: Anion Gap 14.4 (5-19); Blood Urea Nitrogen 17 mg/dL (8-23); Calcium 9.5 mg/dL (8.5-10.5); Carbon Dioxide 27 mmol/L (22-29); Chloride 101 mmol/L (98-107); Glucose 103 mg/dL (65-115); Osmolality Calculated 288 mOsm/kg (285-295); Potassium 4.4 mmol/L (3.5-5.1); Sodium 138 mmol/L (136-145)
[2021-12-04 18:16] LABS: Troponin(5th) Baseline 13 ng/L (0-15)
--- NOTE | 2021-12-04 18:35 | W.ED.CHESTPA ---
HPI - Chest Pain General: Chief Complaint: Chest Pain Stated Complaint: chest pain Time Seen by Provider: 12/04/21 17:11 PFSH ED PFSH: Medical History Aortic valve sclerosis Benign prostatic hyperplasia with lower urinary tract symptoms Coronary artery disease Essential hypertension H/O hand fracture Hx of aortic valve stenosis Lower urinary tract symptoms Surgical History H/O heart artery stent Family History Family/Other Diabetes CAD (coronary artery disease) Hypertension Cancer Multiple Social History Smoking and tobacco status: former smoker Alcohol intake: never Marital status: Current occupational status: retired Course Vital Signs: Vital signs: Vital Signs Temperature 97.8 F 12/04/21 16:58 Pulse Rate 70 12/04/21 16:58 Respiratory Rate 13 12/04/21 16:58 Blood Pressure 170/61 12/04/21 16:58 Pulse Oximetry 98 12/04/21 16:58 MDM - Chest Pain Lab Data : 12/04/21 17:47 12/04/21 17:47 Laboratory Results WBC 6.5 10^3/uL (4.0-10.0) 12/04/21 17:47 RBC 4.91 10^6/uL (4.1-5.3) 12/04/21 17:47 Hgb 14.4 g/dL (11.7-16.6) 12/04/21 17:47 Hct 43.3 % (42.0-52.0) 12/04/21 17:47 MCV 88.2 fl (80-94) 12/04/21 17:47 MCH 29.3 pg (28.0-34.0) 12/04/21 17:47 MCHC 33.3 g/dL (30.0-36.0) 12/04/21 17:47 RDW 12.0 % (12.1-15.1) L 12/04/21 17:47 Plt Count 210 10^3/cmm (130-400) 12/04/21 17:47 MPV 9.3 fL (7.4-10.4) 12/04/21 17:47 Neut % (Auto) 62.0 % 12/04/21 17:47 Lymph % (Auto) 22.9 % 12/04/21 17:47 [place] % (Auto) 9.1 % 12/04/21 17:47 Eos % (Auto) 4.5 % 12/04/21 17:47 Baso % (Auto) 1.2 % 12/04/21 17:47 Neut # (Auto) 3.99 10^3/uL (1.8-7.7) 12/04/21 17:47 Lymph # (Auto) 1.5 10^3/uL (0.8-4.8) 12/04/21 17:47 [place] # (Auto) 0.6 10^3/uL (0.2-0.9) 12/04/21 17:47 Eos # (Auto) 0.3 10^3/uL (0.0-0.8) 12/04/21 17:47 Baso # (Auto) 0.1 10^3/uL (0.0-0.1) 12/04/21 17:47 Nucleated RBC % (auto) 0 % 12/04/21 17:47 Nucleated RBCs # 0.0 /100WBC 12/04/21 17:47 Sodium 138 mmol/L (136-145) 12/04/21 17:47 Potassium 4.4 mmol/L (3.5-5.1) 12/04/21 17:47 Chloride 101 mmol/L (98-107) 12/04/21 17:47 Carbon Dioxide 27 mmol/L (22-29) 12/04/21 17:47 Anion Gap 14.4 (5-19) 12/04/21 17:47 BUN 17 mg/dL (8-23) 12/04/21 17:47 Creatinine 0.8 mg/dL (0.7-1.2) 12/04/21 17:47 GFR Calculation Not Reportable 12/04/21 17:47 Glucose 103 mg/dL (65-115) 12/04/21 17:47 Calculated Osmolality 288 mOsm/kg (285-295) 12/04/21 17:47 Calcium 9.5 mg/dL (8.5-10.5) 12/04/21 17:47 Troponin T Baseline 13 ng/L (0-15) 12/04/21 17:47 Discharge Plan Discharge Condition: Stable Prescriptions: No Action triamcinolone acetonide 0.1 % cream 1 applic TOPICAL DAILY PRN (Reason: Rash) 0RF tamsulosin 0.4 mg capsule 0.4 mg PO DAILY 0RF baclofen 10 mg tablet 10 mg PO TID PRN (Reason: Pain) 0RF meloxicam 15 mg tablet 15 mg PO DAILY PRN (Reason: arthritis pain) 0RF aspirin 325 mg tablet 325 mg PO DAILY 0RF lovastatin 20 mg tablet 20 mg PO DAILY 0RF omeprazole 20 mg capsule,delayed release(DR/EC) 20 mg PO BID Qty: 180 3RF nitroglycerin [Nitrostat] 0.4 mg tablet, sublingual 0.4 mg SUBLINGUAL Q5M PRN (Reason: chest pain) Qty: 25 3RF carvedilol 3.125 mg tablet 3.125 mg PO BID Qty: 180 3RF lisinopril 10 mg tablet 10 mg PO BID Qty: 60 0RF Referrals: Lucero,DIANNA CastellanosP [Primary Care Provider] - Coding Level of Care Code ED Medical Facilities Section Director for Jesica Romero
--- NOTE | 2021-12-04 18:37 | W.ED.GENADLT ---
HPI - General Adult General: Chief complaint: Chest Pain Stated complaint: chest pain Time Seen by Provider: 12/04/21 17:11 History of Present Illness: Patient is a 70-year-old male with a history of aortic stenosis, CAD s/p stents x2, hypertension who presents the emergency room with complaints of new onset of chest pain. Patient tells me that he is currently due for a aortic valve repair on December 13 at [facility]. However over the last day, patient has had increasing fatigue and chest pain. Patient report exertional chest pain and fatigue and nearly passing out today while walking from the living room. Patient still has mild 2 out of 10 chest pain that is relieved with nitroglycerin. Onset: today Duration:ongoing Location:home Severity:moderate Associated symptoms: Reports chest pain; Deny dyspnea, nausea, rash, palpitations or vomiting Review of Systems Const: Denies: fever(s) or chills Eyes: Denies: change in vision ENMT: Denies: mouth pain Card: Reports: chest pain; Denies: palpitations Resp: Denies: dyspnea or non-productive cough GI: Denies: abdominal pain, nausea, vomiting or diarrhea : Denies: dysuria Musc: Denies: extremity pain Skin/Breast: Denies: rash or new lesions Neuro: Reports: other (+syncope); Denies: weakness in extremities Psych: Reports: other (Normal mood) [place]/Lymph: Denies: easy bruising PFSH ED PFSH: Medical History Aortic valve sclerosis Benign prostatic hyperplasia with lower urinary tract symptoms Coronary artery disease Essential hypertension H/O hand fracture Hx of aortic valve stenosis Lower urinary tract symptoms Surgical History H/O heart artery stent Family History Family/Other Diabetes CAD (coronary artery disease) Hypertension Cancer Multiple Social History Smoking and tobacco status: former smoker Alcohol intake: never Marital status: Current occupational status: retired Physical Exam Const: COMMON NORMALS: alert HENMT: COMMON NORMALS: atraumatic HEAD & SCALP: atraumatic MOUTH: moist mucous membranes not abnormal Eye: COMMON NORMALS: EOMs intact bilaterally and conjunctivae normal CONJUNCTIVA: Yes conjunctivae normal Neck/C-Spine: COMMON NORMALS: full ROM and supple Resp: COMMON NORMALS: normal respiratory effort and clear to auscultation bilaterally AUSCULTATION: clear to auscultation bilaterally Cardio: COMMON NORMALS: regular rate RATE: regular rate OTHER: +4/6 holosystolic murmur GI: COMMON NORMALS: Soft to palpation and non-tender PALPATION: Yes Soft to palpation Extremity: COMMON NORMALS: full ROM Neuro: SENSORIUM/ORIENTATION: Yes alert MOTOR EXAM: No Abnormal motor strength present and Other motor observations present (no focal motor deficits) Psych: COMMON NORMALS: speech normal SPEECH: Yes normal speech MOOD & AFFECT: Yes euthymic mood Course Vital Signs: Vital signs: Vital Signs Temperature 97.8 F 12/04/21 16:58 Pulse Rate 70 12/04/21 16:58 Respiratory Rate 13 12/04/21 16:58 Blood Pressure 170/61 12/04/21 16:58 Pulse Oximetry 98 12/04/21 16:58 [facility] - General Adult Medical Decision Making Patient is a 70-year-old male with a history of CAD s/p stents x 2, hypertension, aortic stenosis currently awaiting procedure presenting to the emergency room for evaluation of new onset of chest pain x1 day. Patient on physical exam has a 3 out of 6 holosystolic murmur. Rest of physical exam within normal limit. Patient reports current chest pain is 2 out of 10. Patient received aspirin nitro. Troponin x2 within normal limit. EKG is nonischemic. I suspect that symptoms today are related to worsening aortic stenosis. I have discussed case with Dr. Granger who tells me that since patient is due for surgery on 12/13/2021, it is best that we transfer patient to [facility] that patient can get urgent TAVR. Case was discussed with Dr. Davidson who agreed with the transfer to [facility] for management of aortic stenosis management and TAVR. Disposition: Transfer to outside hospital Lab Data : 12/04/21 17:47 12/04/21 17:47 Radiology Impressions Chest X-Ray 12/04/21 16:57 IMPRESSION: No acute cardiopulmonary abnormality. Laboratory Results WBC 6.5 10^3/uL (4.0-10.0) 12/04/21 17:47 RBC 4.91 10^6/uL (4.1-5.3) 12/04/21 17:47 Hgb 14.4 g/dL (11.7-16.6) 12/04/21 17:47 Hct 43.3 % (42.0-52.0) 12/04/21 17:47 MCV 88.2 fl (80-94) 12/04/21 17:47 MCH 29.3 pg (28.0-34.0) 12/04/21 17:47 MCHC 33.3 g/dL (30.0-36.0) 12/04/21 17:47 RDW 12.0 % (12.1-15.1) L 12/04/21 17:47 Plt Count 210 10^3/cmm (130-400) 12/04/21 17:47 MPV 9.3 fL (7.4-10.4) 12/04/21 17:47 Neut % (Auto) 62.0 % 12/04/21 17:47 Lymph % (Auto) 22.9 % 12/04/21 17:47 [place] % (Auto) 9.1 % 12/04/21 17:47 Eos % (Auto) 4.5 % 12/04/21 17:47 Baso % (Auto) 1.2 % 12/04/21 17:47 Neut # (Auto) 3.99 10^3/uL (1.8-7.7) 12/04/21 17:47 Lymph # (Auto) 1.5 10^3/uL (0.8-4.8) 12/04/21 17:47 [place] # (Auto) 0.6 10^3/uL (0.2-0.9) 12/04/21 17:47 Eos # (Auto) 0.3 10^3/uL (0.0-0.8) 12/04/21 17:47 Baso # (Auto) 0.1 10^3/uL (0.0-0.1) 12/04/21 17:47 Nucleated RBC % (auto) 0 % 12/04/21 17:47 Nucleated RBCs # 0.0 /100WBC 12/04/21 17:47 Sodium 138 mmol/L (136-145) 12/04/21 17:47 Potassium 4.4 mmol/L (3.5-5.1) 12/04/21 17:47 Chloride 101 mmol/L (98-107) 12/04/21 17:47 Carbon Dioxide 27 mmol/L (22-29) 12/04/21 17:47 Anion Gap 14.4 (5-19) 12/04/21 17:47 BUN 17 mg/dL (8-23) 12/04/21 17:47 Creatinine 0.8 mg/dL (0.7-1.2) 12/04/21 17:47 GFR Calculation Not Reportable 12/04/21 17:47 Glucose 103 mg/dL (65-115) 12/04/21 17:47 Calculated Osmolality 288 mOsm/kg (285-295) 12/04/21 17:47 Calcium 9.5 mg/dL (8.5-10.5) 12/04/21 17:47 Troponin T Baseline 13 ng/L (0-15) 12/04/21 17:47 Troponin T 120 Minute 15.31 ng/L (0-15) H 12/04/21 20:05 Delta Troponin T 2.31 ABS# (0-10) 12/04/21 20:05 Imaging Data Other Imaging: Radiologist's impression: [address] [address] XRay Report Signed Patient: Trent Wooten Unit #: [id number] : 1950 Age/Sex: 70 / M ADM Date: 12/04/21 Loc: ER Room/Bed: Attending Dr: Ordering Provider/Ordering MD: Tyrone Isidro MD Date of Service: 12/04/21 Procedure(s): XR chest 1V portable [id number] Accession Number(s): [id number] Report Number: [id number] PROCEDURE INFORMATION: Exam: XR Chest Exam date and time: 12/04/2021 5:24 PM Age: 70 years old Clinical indication: Pain; Chest pressure; Additional info: Chest pain TECHNIQUE: Imaging protocol: XR of the chest. Views: 1 view. COMPARISON: CR XR chest 1V portable [id number] 09/27/2021 9:35 PM FINDINGS: Lungs: Several tiny calcified granulomas are again seen in the lungs. No acute airspace process is visualized. Pleural spaces: Unremarkable. No pleural effusion. No pneumothorax. Heart/Mediastinum: Unremarkable. No cardiomegaly. Bones/joints: Unremarkable. XR/XR chest 1V portable [id number] IMPRESSION:? No acute cardiopulmonary abnormality. ? Dictated By: Donaldo Verdin MD Signed By: Donaldo Verdin MD Signed Date/Time: 12/04/211837 DD/ 23 Discharge Plan Discharge Patient Disposition: Transfer to ED Clinical Impression: Chest pain, Aortic stenosis Condition: Stable Prescriptions: No Action triamcinolone acetonide 0.1 % cream 1 applic TOPICAL DAILY PRN (Reason: Rash) 0RF tamsulosin 0.4 mg capsule 0.4 mg PO DAILY 0RF baclofen 10 mg tablet 10 mg PO TID PRN (Reason: Pain) 0RF meloxicam 15 mg tablet 15 mg PO DAILY PRN (Reason: arthritis pain) 0RF aspirin 325 mg tablet 325 mg PO DAILY 0RF lovastatin 20 mg tablet 20 mg PO DAILY 0RF omeprazole 20 mg capsule,delayed release(DR/EC) 20 mg PO BID Qty: 180 3RF nitroglycerin [Nitrostat] 0.4 mg tablet, sublingual 0.4 mg SUBLINGUAL Q5M PRN (Reason: chest pain) Qty: 25 3RF carvedilol 3.125 mg tablet 3.125 mg PO BID Qty: 180 3RF lisinopril 10 mg tablet 10 mg PO BID Qty: 60 0RF Referrals: Lucero,Jasmin, SCARIFIER OPERATOR [Primary Care Provider] - Coding Level of Care Code ED Crystal Gazer for Chg Fwd Exam Comprehensive
[2021-12-04 20:35] LABS: Troponin 5 2HR 15.31 ng/L (0-15)
[2021-12-04 20:41] LABS: Troponin 5 2HR Delta 2.31 ABS# (0-10)
[2021-12-04 23:41] VITALS: BP 137/58; PULSE 72; RESP 18; O2SAT 94
== END 2021-12-04 23:44 ==
PROVIDERS: Emergency Provider Emergency Medicine; PCP Nurse Practitioner Family
DX: R07.9 Chest pain, unspecified (principal); I10 Essential (primary) hypertension; I25.10 Atherosclerotic heart disease of native coronary artery without angina pectoris; I35.0 Nonrheumatic aortic (valve) stenosis; R01.1 Cardiac murmur, unspecified
CPT/HCPCS: 36415; 71045; 80048; 84484; 85025; 99285

== ENCOUNTER → 2022-02-07 14:55 | Outpatient (BNVA) | payer MEDICARE, OTHER, SELFPAY | PROVIDERS: PCP Nurse Practitioner Family; Visit Provider Internal Medicine Cardiovascular Disease | DX: I50.33 Acute on chronic diastolic (congestive) heart failure (principal); I11.0 Hypertensive heart disease with heart failure; I25.10 Atherosclerotic heart disease of native coronary artery without angina pectoris; Z95.2 Presence of prosthetic heart valve; Z87.891 Personal history of nicotine dependence | CPT/HCPCS: 36415; 83880; 99214; 99215 ==

== ENCOUNTER 2022-03-15 10:39 | Outpatient (RCR) | payer MEDICARE, OTHER, SELFPAY | END 2022-03-26 23:59 | disposition home or self-care (01) | LOC: CR 10:39 | PROVIDERS: PCP Nurse Practitioner Family; Referring Provider Internal Medicine Cardiovascular Disease; Visit Provider Internal Medicine Cardiovascular Disease | DX: Z95.2 Presence of prosthetic heart valve (principal) | CPT/HCPCS: 93798 ==

== ENCOUNTER 2022-03-27 14:32 | Outpatient (RCR) | payer MEDICARE, OTHER, SELFPAY | END 2022-04-26 23:59 | disposition home or self-care (01) | LOC: CR 14:32 | PROVIDERS: PCP Nurse Practitioner Family; Referring Provider Internal Medicine Cardiovascular Disease; Visit Provider Internal Medicine Cardiovascular Disease | DX: Z95.2 Presence of prosthetic heart valve (principal) | CPT/HCPCS: 93798 ==

== ENCOUNTER 2022-04-27 10:50 | Outpatient (RCR) | payer MEDICARE, OTHER, SELFPAY | END 2022-05-26 23:59 | disposition home or self-care (01) | LOC: CR 10:50 | PROVIDERS: PCP Nurse Practitioner Family; Referring Provider Internal Medicine Cardiovascular Disease; Visit Provider Internal Medicine Cardiovascular Disease | DX: Z95.2 Presence of prosthetic heart valve (principal); Z95.1 Presence of aortocoronary bypass graft | CPT/HCPCS: 93798 ==

== ENCOUNTER → 2022-05-30 11:28 | Outpatient (BNVA) | payer MEDICARE, OTHER, SELFPAY | PROVIDERS: PCP Nurse Practitioner Family; Visit Provider Internal Medicine Cardiovascular Disease | DX: I25.10 Atherosclerotic heart disease of native coronary artery without angina pectoris (principal); I10 Essential (primary) hypertension; Z95.1 Presence of aortocoronary bypass graft; Z87.891 Personal history of nicotine dependence; Z95.2 Presence of prosthetic heart valve; G47.33 Obstructive sleep apnea (adult) (pediatric); F51.9 Sleep disorder not due to a substance or known physiological condition, unspecified; Z99.89 Dependence on other enabling machines and devices; E78.5 Hyperlipidemia, unspecified | CPT/HCPCS: 99214 ==

== ENCOUNTER 2022-06-05 | Outpatient (RCR) | payer MEDICARE, OTHER, SELFPAY | END 2022-06-26 15:28 | disposition home or self-care (01) | LOC: CR | PROVIDERS: PCP Nurse Practitioner Family; Referring Provider Internal Medicine Cardiovascular Disease; Visit Provider Internal Medicine Cardiovascular Disease | DX: Z95.2 Presence of prosthetic heart valve (principal) | CPT/HCPCS: 93798 ==

== ENCOUNTER 2022-06-30 08:08 | Outpatient (RCR) | payer MEDICARE, OTHER, SELFPAY | END 2022-07-26 23:59 | disposition home or self-care (01) | LOC: CR 08:08 | PROVIDERS: PCP Nurse Practitioner Family; Referring Provider Internal Medicine Cardiovascular Disease; Visit Provider Internal Medicine Cardiovascular Disease | DX: Z95.2 Presence of prosthetic heart valve (principal) | CPT/HCPCS: 93798 ==

== ENCOUNTER → 2022-12-15 08:49 | Outpatient (BNVA) | payer MEDICARE, SELFPAY | PROVIDERS: PCP Nurse Practitioner Family; Visit Provider Nurse Practitioner Family | DX: I25.10 Atherosclerotic heart disease of native coronary artery without angina pectoris (principal); I10 Essential (primary) hypertension; Z87.891 Personal history of nicotine dependence; Z79.82 Long term (current) use of aspirin | CPT/HCPCS: 99214 ==

== ENCOUNTER 2023-02-21 19:19 | Emergency (ER) | payer MEDICARE, SELFPAY ==
[2023-02-21 19:23] VITALS: BP 161/60; PULSE 66; RESP 18; TEMP 36.6; O2SAT 98
--- NOTE | 2023-02-21 19:36 | XRR_ITS ---
PROCEDURE INFORMATION: Exam: XR Lumbosacral Spine Exam date and time: 02/21/2023 7:45 PM Age: 72 years old Clinical indication: Low back pain TECHNIQUE: Imaging protocol: Radiologic exam of the lumbosacral spine. Views: 2 or 3 views. COMPARISON: CR XR pelvis 1-2V* [id number] 06/19/2018 4:38 PM FINDINGS: Bones/joints: Multilevel moderate to severe disc space narrowing throughout the thoracolumbar spine, greatest posteriorly. Soft tissues: Unremarkable. Vasculature: Scattered vascular calcifications. XR/XR lumbar spine 2-3V* [id number] IMPRESSION: 1. Multilevel moderate to severe disc space narrowing throughout the thoracolumbar spine, greatest posteriorly. 2. Scattered vascular calcifications.
--- NOTE | 2023-02-21 19:37 | W.ED.BACK ---
HPI - Back Pain/Injury General: Chief Complaint: Back Pain/Injury Stated Complaint: Back pain Time Seen by Provider: 02/21/23 19:31 Source: patient Mode of arrival: ambulatory Limitations: no limitations History of Present Illness: 72-year-old male he has been having some left lower back pain over the last 2 to 3 days. He states its not all the time mainly when he sits or for standing states that after standing or resting he has no pain he denies any pain currently states been drinking a lot of water lately his start he may have a kidney infection so has been urinating more but has not had no loss of bowel or bladder no difficulty walking no injuries Associated symptoms: Deny abdominal pain, chills, fever(s), nausea or vomiting Review of Systems Const: Denies: fever(s), chills, body aches or change in appetite ENMT: Denies: throat pain or dental pain Card: Denies: chest pain Resp: Denies: dyspnea GI: Denies: abdominal pain, nausea, vomiting or diarrhea Musc: Reports: back pain; Denies: neck pain Skin/Breast: Denies: rash Neuro: Denies: headache(s) PFSH ED PFSH: Medical History (Updated 02/21/23 @ 20:02 by Nawaf Cool MD) Aortic valve sclerosis Benign prostatic hyperplasia with lower urinary tract symptoms Coronary artery disease Essential hypertension H/O hand fracture Hx of aortic valve stenosis Hx of sleep apnea Lower urinary tract symptoms Surgical History Aortic valve replaced Inspiris 23 mm Tissue Valve H/O heart artery stent Hx of CABG x 2 Family History Family/Other Diabetes CAD (coronary artery disease) Hypertension Cancer Multiple Social History Smoking and tobacco status: former smoker Alcohol intake: never Substance/Drug Use: never Marital status: Current occupational status: retired Physical Exam Const: COMMON NORMALS: no acute distress, patient oriented x3 and healthy appearing HENMT: COMMON NORMALS: normocephalic and atraumatic HEAD & SCALP: normocephalic and atraumatic Eye: COMMON NORMALS: conjunctivae normal CONJUNCTIVA: Yes conjunctivae normal Neck/C-Spine: COMMON NORMALS: full ROM and supple Chest: COMMONS NORMALS: normal inspection of the chest Resp: COMMON NORMALS: normal respiratory effort Cardio: COMMON NORMALS: regular rate, regular rhythm and No murmurs present (Cardio) RATE: regular rate RHYTHM: regular rhythm GI: COMMON NORMALS: Normal to inspection, nondistended, normoactive bowel sounds present, Soft to palpation, non-tender and no masses PALPATION: Yes Soft to palpation Back/Pelvis: OTHER: No tenderness on back he is able ambulate has 5 out of 5 strength no saddle anesthesia Extremity: COMMON NORMALS: normal to inspection and full ROM Neuro: COMMON NORMALS: patient oriented x3, moves all extremities and no focal motor deficits Psych: COMMON NORMALS: mental status grossly normal, Normal thought process present and cooperative THOUGHT PROCESS: Normal thought process present Skin: COMMON NORMALS: no rashes or lesions noted and no wounds GENERAL SKIN EXAM: no rashes or lesions noted Course Vital Signs: Vital signs: Vital Signs Temperature 97.9 F 02/21/23 19:23 Pulse Rate 65 02/21/23 19:53 Respiratory Rate 18 02/21/23 19:53 Blood Pressure 163/60 02/21/23 19:53 Pulse Oximetry 99 02/21/23 19:53 Oxygen Delivery Me thod Room Air 02/21/23 19:53 MDM - Back Pain/Injury Medical Decision Making Patient presents here with back pains likely muscular in nature is no signs of cord compression or epidural abscess he is pain-free here urinalysis and x-ray are normal he stable for discharge we will plan on [facility] Medical Records I reviewed the patient's medical records. Labs I reviewed the patient's lab results. Laboratory Results Urine Color Light yellow (Yellow) 02/21/23 19:46 Urine Appearance Clear (CLEAR) 02/21/23 19:46 Urine pH 5 (5-7) 02/21/23 19:46 Ur Specific [place] 1.005 (1.005-1.030) 02/21/23 19:46 Urine Protein Neg (Negative) 02/21/23 19:46 Urine Glucose (UA) 4+ (Normal) H 02/21/23 19:46 Urine Ketones Negative (Negative) 02/21/23 19:46 Urine Blood Neg (Negative) 02/21/23 19:46 Urine Nitrate Negative (Negative) 02/21/23 19:46 Urine Bilirubin Neg (Negative) 02/21/23 19:46 Urine Urobilinogen Norm mg/dL (Negative) 02/21/23 19:46 Ur Leukocyte Esterase Negative (Negative) 02/21/23 19:46 Discharge Plan Discharge Patient Disposition: Home Clinical Impression: Low back pain Condition: Stable Prescriptions: New methocarbamol 750 mg tablet 750 mg PO Q6H PRN (Reason: spasms) Qty: 20 0RF Naprosyn 500 mg tablet 500 mg PO BID PRN (Reason: pain) Qty: 20 0RF No Action tamsulosin 0.4 mg capsule 0.4 mg PO DAILY aspirin 325 mg tablet 325 mg PO DAILY lovastatin 20 mg tablet 20 mg PO DAILY metoprolol tartrate 50 mg tablet 50 mg PO BID metformin 500 mg tablet 500 mg PO DAILY omeprazole 20 mg capsule,delayed release(DR/EC) 20 mg PO BID Qty: 180 3RF potassium chloride 20 mEq tablet,ER particles/crystals See Rx Instructions .ROUTE .COMPLEX Qty: 180 3RF Dose Instruction: TAKE 2 TABLETS BY MOUTH DAILY WITH BREAKFAST. Rx Instructions: TAKE 2 TABLETS BY MOUTH DAILY WITH BREAKFAST. furosemide 40 mg tablet See Rx Instructions .ROUTE .COMPLEX Qty: 90 3RF Dose Instruction: TAKE ONE TABLET BY MOUTH DAILY. Rx Instructions: TAKE ONE TABLET BY MOUTH DAILY. nitroglycerin [Nitrostat] 0.4 mg tablet, sublingual 0.4 mg SUBLINGUAL Q5M PRN (Reason: chest pain) Qty: 25 3RF lisinopril 10 mg tablet 10 mg PO DAILY Qty: 90 1RF Discharge Orders: Discharge ED (Routine); Ordered 02/21/23 Ordered By: Nawaf Cool Referrals: Lucero,Jasmin, HEAD OF PRECISION TARGETING [Primary Care Provider] - 1-3 days Discharge Diet: Advance as tolerated Discharge Activity: Resume usual activity Patient Instructions: Back Pain (ED) Coding Level of Care Code ED Orthotic And Prosthetic Technician for Jesica Romero
[2023-02-21] MEDS: ketorolac 30 mg/mL INJ IM (19:48)
[2023-02-21 19:50] LABS: Add Urine Microscopic? NO; Charge for UA Resulting for Rev
[2023-02-21 19:53] VITALS: BP 163/60; PULSE 65; RESP 18; O2SAT 99
[2023-02-21 19:55] LABS: Bilirubin Urine Neg (Negative); Blood Urine Neg (Negative); Glucose Urine UA 4+ (Normal); Ketones Urine Negative (Negative); Leukocyte Esterase Urine Negative (Negative); Nitrate Urine Negative (Negative); Protein Urine Neg (Negative); Specific Gravity, Urine 1.005 (1.005-1.030); Urine Appearance Clear (CLEAR); Urine Color Light yellow (Yellow); Urobilinogen Urine Norm (Negative); pH Urine 5 (5-7)
[2023-02-21 20:11] VITALS: PULSE 89; RESP 18; O2SAT 99
== END 2023-02-21 20:11 | disposition home or self-care (01) ==
PROVIDERS: Emergency Provider Emergency Medicine; PCP Nurse Practitioner Family
DX: M54.50 Low back pain, unspecified (principal); Z79.82 Long term (current) use of aspirin; Z79.84 Long term (current) use of oral hypoglycemic drugs; Z87.891 Personal history of nicotine dependence; I25.10 Atherosclerotic heart disease of native coronary artery without angina pectoris; I10 Essential (primary) hypertension; Z95.1 Presence of aortocoronary bypass graft
CPT/HCPCS: 72100; 81003; 96372; 99284; J1885

== ENCOUNTER 2023-03-22 19:58 | Emergency (ER) | payer MEDICARE, SELFPAY ==
[2023-03-22 20:04] VITALS: BP 111/58; PULSE 70; RESP 18; TEMP 36.6; O2SAT 99; BMI 35.2
--- NOTE | 2023-03-22 21:08 | CTR_ITS ---
PROCEDURE INFORMATION: Exam: CT Head Without Contrast Exam date and time: 03/22/2023 9:15 PM Age: 72 years old Clinical indication: Injury or trauma; Fall; Additional info: Fall head trauma TECHNIQUE: Imaging protocol: Computed tomography of the head without contrast. Sagittal and coronal reformatted images were created and reviewed. Radiation optimization: All CT scans at this facility use at least one of these dose optimization techniques: automated exposure control; mA and/or kV adjustment per patient size (includes targeted exams where dose is matched to clinical indication); or iterative reconstruction. REPORTING DATA: Count of CT and Cardiac NM exams in prior 12 months: This patient has received 0 known CTs and 0 known cardiac nuclear medicine studies in the 12 months prior to the current study. COMPARISON: CT neck wo con [id number] 07/31/2019 11:48 AM RADIATION DOSE METRICS: Total DLP (mGy-cm): 1125.74 FINDINGS: Brain: No acute intracranial hemorrhage. No acute infarct. No intra-axial or extra-axial masses. Gerard-white matter differentiation is preserved. No cerebral edema. No extra-axial fluid collections. No midline shift. No evidence for Chiari 1 malformation. Mild atrophy of the brain parenchyma. Cerebral ventricles: No hydrocephalus. Paranasal sinuses: Visualized paranasal sinuses are clear. Mastoid air cells: Mastoid air cells are clear bilaterally. Orbital cavities: Globes and lenses, extraocular muscles, and optic nerves are intact bilaterally. No acute intraorbital abnormality. Bones/joints: No acute fracture. Soft tissues: No acute abnormality of the extracranial soft tissues. Vasculature: Atherosclerotic changes in the visualized arteries. CT/CT head wo con* [id number] IMPRESSION: 1. No acute abnormality of the brain. 2. Mild atrophy of the brain parenchyma. 3. Incidental/nonacute findings are listed in the report.
--- NOTE | 2023-03-22 21:41 | W.ED.HEATRA ---
HPI - Head Injury General: Chief complaint: Head Injury Stated complaint: fall head/neck pain Time Seen by Provider: 03/22/23 20:53 History of Present Illness: Patient presents to the ER status post falling at [employer]. Patient was walking to the bathroom and tripped over the lip going into the bathroom and fell and hit his head. Patient denies any loss of consciousness. Patient takes a full-strength aspirin every day as a blood thinner. Patient has no nausea vomiting hearing or vision changes at this current time. Review of Systems General: Reports: 10 or more systems reviewed and unremarkable except in HPI and below PFSH ED PFSH: Medical History Aortic valve sclerosis Benign prostatic hyperplasia with lower urinary tract symptoms Coronary artery disease Essential hypertension H/O hand fracture Hx of aortic valve stenosis Hx of sleep apnea Lower urinary tract symptoms Surgical History Aortic valve replaced Inspiris 23 mm Tissue Valve H/O heart artery stent Hx of CABG x 2 Family History Family/Other Diabetes CAD (coronary artery disease) Hypertension Cancer Multiple Social History Smoking and tobacco status: former smoker Alcohol intake: never Substance/Drug Use: never Marital status: Current occupational status: retired Physical Exam Const: COMMON NORMALS: no acute distress, average body habitus, patient oriented x3, no limitations, healthy appearing, alert and well nourished HENMT: COMMON NORMALS: normocephalic, hearing grossly normal bilaterally, external ears normal, Normal external nose present and moist oral mucous membranes; head/scalp not atraumatic (Patient has a hematoma and abrasion on the top part of his scalp.) HEAD & SCALP: normocephalic; not atraumatic (Patient has a hematoma and abrasion on the top part of his scalp.) NOSE: Normal external nose present EXTERNAL EAR: Yes external ears normal Eye: COMMON NORMALS: Equal, round and reactive pupils present, EOMs intact bilaterally, conjunctivae normal and no scleral icterus CONJUNCTIVA: Yes conjunctivae normal PUPIL: Yes Equal, round and reactive pupils present Neck/C-Spine: COMMON NORMALS: full ROM, no lymphadenopathy, supple, no meningeal signs, no JVD and Thyroid normal THYROID: Thyroid normal Chest: COMMONS NORMALS: normal inspection of the chest and normal palpation of entire chest wall Resp: COMMON NORMALS: normal respiratory effort, No retractions, No use of accessory muscles and clear to auscultation bilaterally AUSCULTATION: clear to auscultation bilaterally Cardio: COMMON NORMALS: no JVD, regular rate, regular rhythm, S1 normal heart sound present, S2 normal heart sound present, No gallops present (Cardio), No clicks present (Cardio), No murmurs present (Cardio) and No rub (Cardio) RATE: regular rate RHYTHM: regular rhythm HEART SOUNDS: S1 normal heart sound present and S2 normal heart sound present GI: COMMON NORMALS: Normal to inspection, nondistended, normoactive bowel sounds present, Soft to palpation, non-tender and No hepatosplenomegaly present PALPATION: Yes Soft to palpation and Yes No hepatosplenomegaly present Neuro: COMMON NORMALS: patient oriented x3 SENSORIUM/ORIENTATION: Yes alert MENINGEAL SIGNS: Yes no meningeal signs Course Vital Signs: Vital signs: Vital Signs Temperature 97.8 F 03/22/23 20:04 Pulse Rate 70 03/22/23 20:04 Respiratory Rate 18 03/22/23 20:04 Blood Pressure 111/58 03/22/23 20:04 Pulse Oximetry 99 03/22/23 20:04 MDM - Head Injury Medcial Decision Making Patient presents to the ER with complaints of falling and hitting his head at the [facility] station. Patient had a CT scan of his head which was negative. Patient is only on aspirin as an anticoagulant. Patient will be discharged home to follow-up with his PCP on an as-needed basis. Differential Diagnosis Unlikely concussion without loss of consciousness, epidural hematoma, closed head injury, subarachnoid hematoma, postconcussion syndrome, subdural hematoma or concussion with loss of consciousness Medical Records I reviewed the patient's medical records. Lab Data I reviewed the patient's lab results. Radiology Impressions Head CT 03/22/23 21:08 IMPRESSION: 1. No acute abnormality of the brain. 2. Mild atrophy of the brain parenchyma. 3. Incidental/nonacute findings are listed in the report. Discharge Plan Discharge Patient Disposition: Home Clinical Impression: Contusion of head Qualifiers: Encounter type: initial encounter Contusion of head detail: scalp Qualified Code(s): S00.03XA - Contusion of scalp, initial encounter Condition: Stable Prescriptions: No Action tamsulosin 0.4 mg capsule 0.4 mg PO DAILY aspirin 325 mg tablet 325 mg PO DAILY lovastatin 20 mg tablet 20 mg PO DAILY metoprolol tartrate 50 mg tablet 50 mg PO BID metformin 500 mg tablet 500 mg PO DAILY omeprazole 20 mg capsule,delayed release(DR/EC) 20 mg PO BID Qty: 180 3RF potassium chloride 20 mEq tablet,ER particles/crystals See Rx Instructions .ROUTE .COMPLEX Qty: 180 3RF Dose Instruction: TAKE 2 TABLETS BY MOUTH DAILY WITH BREAKFAST. Rx Instructions: TAKE 2 TABLETS BY MOUTH DAILY WITH BREAKFAST. furosemide 40 mg tablet See Rx Instructions .ROUTE .COMPLEX Qty: 90 3RF Dose Instruction: TAKE ONE TABLET BY MOUTH DAILY. Rx Instructions: TAKE ONE TABLET BY MOUTH DAILY. nitroglycerin [Nitrostat] 0.4 mg tablet, sublingual 0.4 mg SUBLINGUAL Q5M PRN (Reason: chest pain) Qty: 25 3RF lisinopril 10 mg tablet 10 mg PO DAILY Qty: 90 1RF methocarbamol 750 mg tablet 750 mg PO Q6H PRN (Reason: spasms) Qty: 20 0RF Naprosyn 500 mg tablet 500 mg PO BID PRN (Reason: pain) Qty: 20 0RF Discharge Orders: Discharge ED (Routine); Ordered 03/22/23 Ordered By: Ashu Dill Referrals: Jasmin Lucero, MECHANICAL SPREADER OPERATOR [Primary Care Provider] - 1 week Patient Instructions: Scalp Contusion in Adults (ED) Activity Restrictions/Additional Instructions: Please follow-up with your family practice doctor in the next 7 to 10 days as needed. If you have any worsening signs or symptoms please return to the ER for further evaluation. Coding Level of Care Code ED Vice President Pharmacy for Jesica Romero
== END 2023-03-22 22:26 | disposition home or self-care (01) ==
PROVIDERS: Emergency Provider Emergency Medicine; PCP Nurse Practitioner Family
DX: S00.03XA Contusion of scalp, initial encounter (principal); I10 Essential (primary) hypertension; I25.10 Atherosclerotic heart disease of native coronary artery without angina pectoris; Z79.82 Long term (current) use of aspirin; Z79.01 Long term (current) use of anticoagulants; Z79.899 Other long term (current) drug therapy; Z87.891 Personal history of nicotine dependence; W01.0XXA Fall on same level from slipping, tripping and stumbling without subsequent striking against object, initial encounter; Y92.89 Other specified places as the place of occurrence of the external cause; Z95.1 Presence of aortocoronary bypass graft; Z95.5 Presence of coronary angioplasty implant and graft
CPT/HCPCS: 70450; 99284

== ENCOUNTER → 2023-07-02 10:53 | Outpatient (BNVA) | payer MEDICARE, SELFPAY | PROVIDERS: PCP Nurse Practitioner Family; Visit Provider Internal Medicine Cardiovascular Disease | DX: I25.10 Atherosclerotic heart disease of native coronary artery without angina pectoris (principal); Z95.2 Presence of prosthetic heart valve; I10 Essential (primary) hypertension; E78.5 Hyperlipidemia, unspecified; G47.30 Sleep apnea, unspecified; Z87.891 Personal history of nicotine dependence; Z79.82 Long term (current) use of aspirin | CPT/HCPCS: 99214 ==

== ENCOUNTER 2023-07-13 07:48 | Outpatient (CLI) | payer MEDICARE, SELFPAY ==
--- NOTE | 2023-07-13 08:15 | USCV_ITS ---
Trent Wooten Age: 72 Gender: M : 1950 Exam Date: 07/13/2023 08:33 Ordering Phys: Ines Granger MD ([email or web address]) Technologist: [place] [facility] [place]: avr BP: 138 / 60 HR: 56 Rhythm: Sinus Technical Quality: Adequate MEASUREMENTS (Male / Female) Normal Values 2D ECHO LVOT Diameter 2.0 cm LV Ejection Fraction MOD 2C 57.1 % LV Ejection Fraction 2C AL 57.4 % LA Diameter 5.1 cm Aorta at Sinotubular Diameter 2.0 cm IVC Diameter 1.6 cm M-MODE Aortic Annulus Diameter 2.3 cm LA Ao Ratio MM 2.6 MV E Point Septal Separation 0.8 cm DOPPLER AV Peak Velocity 291.0 cm/s LVOT Peak Velocity 99.0 cm/s AV Area Cont Eq vti 1.2 cm squared AV Area Cont Eq pk 1.1 cm squared MV E' Velocity 8.0 cm/s TR Peak Velocity 214.0 cm/s TR Peak Gradient 18.3 mmHg TV Peak E Velocity 84.0 cm/s Right Atrial Pressure 3.0 mmHg Pulmonary Artery Systolic Pressu 21.3 mmHg PV Peak Velocity 114.0 cm/s FINDINGS Left Ventricle Normal left ventricular size with a slightly diminished systolic function, EF 52 %. Dyskinetic basal septum.Grade III/IV diastolic dysfunction (restrictive filling pattern), severely elevated filling pressures. Right Ventricle The right ventricle is normal in size and function. Right Atrium Mildly increased right atrial size. Left Atrium Mildly increased left atrial size. Mitral Valve Thickened mitral valve. Mild mitral annular calcification. Aortic Valve The bioprosthetic valve at the aortic position appears to be well-seated. Peak velocity was 2.9 m/s with a peak gradient of 34 and a mean gradient of 17 mmHg. The aortic valve area was calculated to be 1.2 cm squared. Tricuspid Valve Trace tricuspid valve regurgitation. Pulmonic Valve No gross abnormalities no Pericardium Normal pericardium without effusion. Aorta Normal ascending aorta dimension. IVC Inferior vena cava not visualized. CONCLUSIONS Normal left ventricular size with a slightly diminished systolic function, EF 52 %. Dyskinetic basal septum. Grade III/IV diastolic dysfunction (restrictive filling pattern), severely elevated filling pressures. Mildly increased left atrial size. Thickened mitral valve. Mild mitral annular calcification. The bioprosthetic valve at the aortic position appears to be well-seated. Peak velocity was 2.9 m/s with a peak gradient of 34 and a mean gradient of 17 mmHg. The aortic valve area was calculated to be 1.2 cm squared. Trace tricuspid valve regurgitation. Estimated pulmonary artery peak systolic pressure within normal limits There is no pericardial effusion. There are no intracardiac masses. Compared to the study from 10/06/2021, the aortic valve appears to be replaced. Dr Ines Granger MD [facility] (Electronically Signed) Final Date: 14 July 2023 14:23 S
== END 2023-07-13 07:49 | disposition home or self-care (01) ==
PROVIDERS: PCP Nurse Practitioner Family; Visit Provider Internal Medicine Cardiovascular Disease
DX: R06.09 Other forms of dyspnea (principal); I05.8 Other rheumatic mitral valve diseases; Z95.2 Presence of prosthetic heart valve
CPT/HCPCS: 93306

== ENCOUNTER 2023-10-19 17:44 | Emergency (ER) | payer MEDICARE, SELFPAY ==
[2023-10-19 17:44] VITALS: BP 164/67; PULSE 77; RESP 17; TEMP 36.7; O2SAT 95
--- NOTE | 2023-10-19 17:46 | XRR_ITS ---
PROCEDURE INFORMATION: Exam: XR Chest Exam date and time: 10/19/2023 6:12 PM Age: 72 years old Clinical indication: Pain; Angina pectoris; Additional info: Cxp TECHNIQUE: Imaging protocol: Radiologic exam of the chest. Views: 1 view. COMPARISON: CR XR chest 1V portable [id number] 12/04/2021 5:24 PM FINDINGS: Tubes, catheters and devices: Median sternotomy suture wires. Lungs: Unremarkable. No consolidation. Pleural spaces: Unremarkable. No pleural effusion. No pneumothorax. Heart/Mediastinum: Unremarkable. No cardiomegaly. Bones/joints: Unremarkable. XR/XR chest 1V portable [id number] IMPRESSION: No acute findings.
--- NOTE | 2023-10-19 17:47 | W.ED.CHESTPA ---
HPI - Chest Pain General: Chief Complaint: Chest Pain Stated Complaint: chest pain Time Seen by Provider: 10/19/23 17:45 History of Present Illness: 72-year-old male presents to the emergency department via EMS personnel with complaints of substernal chest pain that is nonradiating. He states the pain started while he was resting in his chair today at approximately a little afternoon. He states that he took 3 nitroglycerin without any relief. He states the pain at worst was a 4 out of 10 and currently it is a 1 out of 10. He denies shortness of breath dizziness nausea vomiting fevers chills or night sweats. He denies diaphoresis at the time of his chest pain. He states the chest pain is intermittent. He states that the paramedics gave him aspirin. He does have coronary artery disease history where he is he has had an aortic valve replacement as well as a two-vessel CABG. Associated symptoms: Deny dyspnea, nausea or vomiting Review of Systems Card: Reports: chest pain; Denies: irregular heart rhythm or edema Resp: Denies: dyspnea GI: Denies: nausea or vomiting [facility] ED PFSH: Medical History Aortic valve sclerosis Benign prostatic hyperplasia with lower urinary tract symptoms Coronary artery disease Essential hypertension H/O hand fracture Hx of aortic valve stenosis Hx of sleep apnea Lower urinary tract symptoms Surgical History Aortic valve replaced Inspiris 23 mm Tissue Valve H/O heart artery stent Hx of CABG x 2 Family History Family/Other Diabetes CAD (coronary artery disease) Hypertension Cancer Multiple Social History Smoking and tobacco/nicotine status: former use of tobacco/nicotine Alcohol intake: never Substance/Drug Use: never Marital status: Current occupational status: retired Physical Exam Narrative: EXAM NARRATIVE: Constitutional: the patient appears well nourished and with normal development. Vital signs reviewed as documented. HENMT: Normocephalic, atraumatic. External ears normal appearance without drainage. Nose without drainage, normal appearance. Mucus membranes moist. Neck is supple, No jugular venous distension, trachea is midline, no appreciable carotid bruits. No lymphadenopathy. No meningeal signs. Flexion, extension and lateral rotation is without pain. Eyes: Pupils are equal, round, reactive to light and accommodation. No scleral icterus. Extra-ocular movement are intact. Thorax is symmetrical and with equal rise and fall with respirations. Resp: Lungs are clear to auscultation. No wheezes, rales, crackles or ronchi at present. Cardio: Regular rate and rhythm. Positive S1, S2. No appreciable murmurs, rubs or gallops. GI: Abdominal exam reveals normal bowel sounds to all quadrants. No organomegaly. No obvious palpable masses noted. No hepatomegally appreciated. Soft, non-tender to palpation. Extremity: Extremities are non-edematous and both femoral and pedal pulses are 2+ and equal bilaterally. Moves all extremities well, sensation in all extremities. Neuro: Alert and oriented x4, person, place, time and situation. Cranial nerves II through XII are grossly intact, there is no focal neurological deficits that I can appreciate at present. Motor strength in the upper and lower extremities are equal and bilateral 5/5. Psych: Cooperative, calm, normal thought process, appropriate judgment. Skin: No lesions, rashes. No gross abnormalities noted. Back: Symmetrical, no obvious deformity, No CVA tenderness Course Vital Signs: Vital signs: Vital Signs Temperature 98.0 F 10/19/23 17:44 Pulse Rate 64 10/19/23 21:00 Respiratory Rate 17 10/19/23 21:00 Blood Pressure 152/63 10/19/23 21:00 Pulse Oximetry 94 10/19/23 21:00 Oxygen Delivery Me thod Room Air 10/19/23 21:00 MDM - Chest Pain Medical Decision Making Physical exam completed and documented, I will obtain serial cardiac enzymes, serial twelve-lead EKGs, chest x-ray, CBC, CMP, urinalysis, B-type natriuretic peptide, PT/PTT/INR, and a chest x-ray. I will provide cardiac dose aspirin if not provided by EMS services. I have reviewed previous and pertinent medical records for assist in obtaining beneficial medical information to improved the care and treatment of the patient. Medical Records I reviewed the patient's medical records. Lab Data I reviewed the patient's lab results. 10/19/23 18:00 10/19/23 18:00 Laboratory Results WBC 6.84 10^3/uL (3.29-11.43) 10/19/23 18:00 RBC 4.20 10^6/uL (3.85-5.65) 10/19/23 18:00 Hgb 12.70 g/dL (11.27-16.99) 10/19/23 18:00 Hct 37.2 % (37-53) 10/19/23 18:00 MCV 88.6 fl (82-101) 10/19/23 18:00 MCH 30.2 pg (27-33) 10/19/23 18:00 MCHC 34.1 g/dL (30-55) 10/19/23 18:00 RDW 12.8 % (12.1-15.1) 10/19/23 18:00 Plt Count 235 10^3/cmm (157-399) 10/19/23 18:00 MPV 9.2 fL (7.4-10.4) 10/19/23 18:00 Neut % (Auto) 62.0 % 10/19/23 18:00 Lymph % (Auto) 25.6 % 10/19/23 18:00 [place] % (Auto) 7.2 % 10/19/23 18:00 Eos % (Auto) 3.8 % 10/19/23 18:00 Baso % (Auto) 0.7 % 10/19/23 18:00 Neut # (Auto) 4.24 10^3/uL (1.8-7.7) 10/19/23 18:00 Lymph # (Auto) 1.8 10^3/uL (0.8-4.8) 10/19/23 18:00 [place] # (Auto) 0.5 10^3/uL (0.2-0.9) 10/19/23 18:00 Eos # (Auto) 0.3 10^3/uL (0.0-0.8) 10/19/23 18:00 Baso # (Auto) 0.1 10^3/uL (0.0-0.1) 10/19/23 18:00 Nucleated RBC % (auto) 0 % 10/19/23 18:00 Nucleated RBCs # 0.0 /100WBC 10/19/23 18:00 PT 12.70 SECONDS (12.1-14.9) 10/19/23 18:00 INR 0.93 (0.8-1.2) 10/19/23 18:00 APTT 23.6 SECONDS (23.9-36.7) L 10/19/23 18:00 Sodium 135 mmol/L (136-145) L 10/19/23 18:00 Potassium 4.3 mmol/L (3.5-5.1) 10/19/23 18:00 Chloride 98 mmol/L (98-107) 10/19/23 18:00 Carbon Dioxide 24 mmol/L (22-29) 10/19/23 18:00 Anion Gap 17.3 (5-19) 10/19/23 18:00 BUN 27 mg/dL (8-23) H 10/19/23 18:00 Creatinine 1.2 mg/dL (0.7-1.2) 10/19/23 18:00 GFR Calculation Not Reportable 10/19/23 18:00 Glucose 234 mg/dL (65-115) H 10/19/23 18:00 Calculated Osmolality 293 mOsm/kg (285-295) 10/19/23 18:00 Calcium 9.0 mg/dL (8.5-10.5) 10/19/23 18:00 Total Bilirubin 0.2 mg/dL (0.15-1.2) 10/19/23 18:00 AST 20 U/L (0-40) 10/19/23 18:00 ALT 30 U/L (0-41) 10/19/23 18:00 Alkaline Phosphatase 68 U/L (40-130) 10/19/23 18:00 Troponin T Baseline 16 ng/L (0-15) H 10/19/23 18:00 Troponin T 120 Minute 18.03 ng/L (0-15) H 10/19/23 20:04 Delta Troponin T 2.03 ABS# (0-10) 10/19/23 20:04 NT-Pro-B Natriuret Pep 181 pg/mL (0-125) H 10/19/23 18:00 Total Protein 6.5 g/dL (6.6-8.7) L 10/19/23 18:00 Albumin 4.2 g/dL (3.5-5.2) 10/19/23 18:00 Globulin 2.3 g/dL (1.3-4.6) 10/19/23 18:00 All radiology interpretation(s) finalized by discharge EKG Data EKG 1: Interpretation: Twelve-lead EKG obtained at 1748 reviewed at 1748 demonstrates sinus rhythm with a ventricular rate of 76 bpm, AK interval 160, QRS duration 118, QT 370 QTc 401 at present there is no ST elevation or depression to demonstrate acute ischemia or infarction. EKG 2: Computer generated interpretation: Repeat twelve-lead EKG at 2037 and reviewed at 2039 demonstrates sinus rhythm ventricular rate 68 bpm AK interval 166 QRS duration 109 QT [address] elevation or depression to demonstrate acute ischemia at present. Discharge Plan Discharge Patient Disposition: Home Clinical Impression: Atypical chest pain Prescriptions: No Action tamsulosin 0.4 mg capsule 0.4 mg PO DAILY aspirin 325 mg tablet 325 mg PO DAILY lovastatin 20 mg tablet 20 mg PO DAILY metformin 500 mg tablet 500 mg PO DAILY omeprazole 20 mg capsule,delayed release(DR/EC) 20 mg PO BID Qty: 180 3RF nitroglycerin [Nitrostat] 0.4 mg tablet, sublingual 0.4 mg SUBLINGUAL Q5M PRN (Reason: chest pain) Qty: 25 3RF furosemide 40 mg tablet See Rx Instructions .ROUTE .COMPLEX Qty: 90 3RF Dose Instruction: TAKE ONE TABLET BY MOUTH DAILY. Rx Instructions: TAKE ONE TABLET BY MOUTH DAILY. potassium chloride 20 mEq tablet,ER particles/crystals See Rx Instructions .ROUTE .COMPLEX Qty: 180 3RF Dose Instruction: TAKE 2 TABLETS BY MOUTH DAILY WITH BREAKFAST. Rx Instructions: TAKE 2 TABLETS BY MOUTH DAILY WITH BREAKFAST. metoprolol tartrate 50 mg tablet 50 mg PO BID Qty: 180 3RF lisinopril 10 mg tablet See Rx Instructions .ROUTE .COMPLEX Qty: 90 1RF Dose Instruction: TAKE ONE TABLET BY MOUTH DAILY Rx Instructions: TAKE ONE TABLET BY MOUTH DAILY methocarbamol 750 mg tablet 750 mg PO Q6H PRN (Reason: spasms) Qty: 20 0RF Naprosyn 500 mg tablet 500 mg PO BID PRN (Reason: pain) Qty: 20 0RF Discharge Orders: Discharge ED (Routine); Ordered 10/19/23 Ordered By: Nikko Fournier Referrals: Jasmin Lucero FNP [Primary Care Provider] - Discharge Diet: Low Salt Discharge Activity: Resume usual activity Patient Instructions: Opioid Safety, Pain Management Activity Restrictions/Additional Instructions: Activity Restrictions/Additional Instructions: Thank you for choosing [facility] for your healthcare needs today. Please realize that you were seen in the Emergency Department and that we are providing you with an emergency medical screening exam and this may not be a complete and all inclusive of all the testing and or medical work-up that you may need to determine your ailment or severity of your illness. It is very important that you follow-up as instructed with your Primary care provider or Specialist for additional evaluation and to discuss your medical treatment plan. You may return to the Emergency Department should you have concerns or if your condition changes or worsens in any way. Coding Level of Care Code ED Loss Prevention Operations Manager for Jesica Romero
--- NOTE | 2023-10-19 17:49 | ECG_ITS ---
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 Measurements Intervals [place] Rate: 76 P: 14 [place]: 160 QRS: -60 QRSD: 118 T: 79 QT: 370 QTc: 418 Interpretive Statements SINUS RHYTHM PATTERN CONSISTENT WITH PULMONARY DISEASE LEFT ANTERIOR FASCICULAR BLOCK [QRS AXIS <= -45, QR IN I, RS IN II] MODERATE ST DEPRESSION [0.05+ mV ST DEPRESSION] Compared to ECG 08/04/2021 14:16:19 Left anterior fascicular block now present ST (T wave) deviation now present T-wave abnormality no longer present Possible ischemia no longer present Electronically Signed On 10-19-2023 18:57:55 CLINICAL DATA RESEARCH by Dave Webber M.D. [id number] f
--- NOTE | 2023-10-19 17:50 | PC.NURSE ---
pt placed on bedside sec reporting consultant
[2023-10-19 18:04] LABS: Basophils # 0.1 10^3/uL (0.0-0.1); Basophils % 0.7 %; Eosinophils # 0.3 10^3/uL (0.0-0.8); Eosinophils % 3.8 %; Hematocrit 37.2 % (37-53); Lymphocytes # 1.8 10^3/uL (0.8-4.8); Lymphocytes % 25.6 %; Mean Corpuscular HGB Conc 34.1 g/dL (30-55); Mean Corpuscular Hemoglobin 30.2 pg (27-33); Mean Corpuscular Volume 88.6 fl (82-101); Mean Platelet Volume 9.2 fL (7.4-10.4); Monocytes # 0.5 10^3/uL (0.2-0.9); Monocytes % 7.2 %; Neutrophils # 4.24 10^3/uL (1.8-7.7); Nucleated Red Blood Cells % 0 %; Platelet Count 235 10^3/cmm (157-399); Red Cell Distribution Width 12.8 % (12.1-15.1); White Blood Count 6.84 10^3/uL (3.29-11.43)
[2023-10-19 18:15] LABS: INR 0.93 (0.8-1.2)
[2023-10-19 18:16] LABS: Partial Thromboplastin Time 23.6 SECONDS (23.9-36.7)
[2023-10-19 18:24] LABS: Troponin(5th) Baseline 16 ng/L (0-15)
[2023-10-19 18:32] LABS: Alanine Aminotransferase 30 U/L (0-41); Albumin Level 4.2 g/dL (3.5-5.2); Alkaline Phosphatase 68 U/L (40-130); Anion Gap 17.3 (5-19); Aspartate Amino Transferase 20 U/L (0-40); Blood Urea Nitrogen 27 mg/dL (8-23); Carbon Dioxide 24 mmol/L (22-29); Chloride 98 mmol/L (98-107); Globulin 2.3 g/dL (1.3-4.6); Glucose 234 mg/dL (65-115); NT Pro B Type Natriuretic Pept 181 pg/mL (0-125); Osmolality Calculated 293 mOsm/kg (285-295); Potassium 4.3 mmol/L (3.5-5.1); Sodium 135 mmol/L (136-145); Total Bilirubin 0.2 mg/dL (0.15-1.2); Total Protein 6.5 g/dL (6.6-8.7)
[2023-10-19 19:14] VITALS: BP 152/59; PULSE 69; RESP 18; O2SAT 95
[2023-10-19 19:30] VITALS: BP 167/67; PULSE 79; RESP 23; O2SAT 96
[2023-10-19 20:00] VITALS: BP 176/70; PULSE 69; RESP 16; O2SAT 95
[2023-10-19 20:30] VITALS: BP 170/76; PULSE 68; RESP 25; O2SAT 93
[2023-10-19 20:34] LABS: Troponin 5 2HR 18.03 ng/L (0-15); Troponin 5 2HR Delta 2.03 ABS# (0-10)
--- NOTE | 2023-10-19 20:38 | ECG_ITS ---
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 Measurements Intervals [place] Rate: 68 P: 21 [place]: 166 QRS: -57 QRSD: 109 T: 66 QT: 372 QTc: 398 Interpretive Statements SINUS RHYTHM LEFT AXIS DEVIATION [QRS AXIS < -30] PATTERN CONSISTENT WITH PULMONARY DISEASE Compared to ECG 10/19/2023 17:49:08 Left-axis deviation now present Left anterior fascicular block no longer present ST (T wave) deviation no longer present Electronically Signed On 10-19-2023 21:49:31 INSTALLATION SUPERINTENDENT by Dave Webber M.D. [email or web address] [id number]
[2023-10-19 21:00] VITALS: BP 152/63; PULSE 64; RESP 17; O2SAT 94
== END 2023-10-19 21:00 | disposition home or self-care (01) ==
PROVIDERS: Emergency Provider Internal Medicine; PCP Nurse Practitioner Family
DX: R07.89 Other chest pain (principal); Z79.82 Long term (current) use of aspirin; Z79.84 Long term (current) use of oral hypoglycemic drugs; I25.10 Atherosclerotic heart disease of native coronary artery without angina pectoris; I10 Essential (primary) hypertension; Z95.1 Presence of aortocoronary bypass graft; Z87.891 Personal history of nicotine dependence
CPT/HCPCS: 36415; 71045; 80053; 83880; 84484; 85025; 85610; 85730; 93005; 99285

== ENCOUNTER 2023-11-08 08:10 | Outpatient (CLI) | payer MEDICARE, SELFPAY ==
--- NOTE | 2023-11-08 08:19 | CTR_ITS ---
PROCEDURE INFORMATION: Exam: CT Abdomen And Pelvis Without Contrast Exam date and time: 11/08/2023 9:43 AM Age: 72 years old Clinical indication: Condition or disease; Hernia; Without gangrene and without obstruction; Ventral; Additional info: Ventral hernia w/o obstruction or gangrene TECHNIQUE: Imaging protocol: Computed tomography of the abdomen and pelvis without contrast. Radiation optimization: All CT scans at this facility use at least one of these dose optimization techniques: automated exposure control; mA and/or kV adjustment per patient size (includes targeted exams where dose is matched to clinical indication); or iterative reconstruction. COMPARISON: CR XR pelvis 1-2V* [id number] 06/19/2018 4:38 PM RADIATION DOSE METRICS: Total DLP (mGy-cm): 973.85 FINDINGS: Coronary arteries: Coronary artery calcifications. Liver: Normal. No mass. Gallbladder and bile ducts: Normal. No calcified stones. No ductal dilation. Pancreas: Normal. No ductal dilation. Spleen: Normal. No splenomegaly. Adrenal glands: Normal. No mass. Kidneys and ureters: Normal. No hydronephrosis. Stomach and bowel: Unremarkable. No obstruction. No mucosal thickening. Appendix: No evidence of appendicitis. Intraperitoneal space: Unremarkable. No free air. No significant fluid collection. Vasculature: Unremarkable. No abdominal aortic aneurysm. Lymph nodes: Unremarkable. No enlarged lymph nodes. Urinary bladder: Unremarkable as visualized. Reproductive: Unremarkable as visualized. Bones/joints: Presumed bone island in L1. Soft tissues: Moderate bilateral inguinal hernias containing only fat. No evidence of ventral hernia. CT/CT abdomen pelvis wo con [id number] IMPRESSION: No acute findings.
[2023-11-08] MEDS: barium sulfate 450 mL Oral Susp PO (08:57)
== END 2023-11-08 08:11 | disposition home or self-care (01) ==
LOC: RAD 08:11
PROVIDERS: PCP Nurse Practitioner Family; Visit Provider Nurse Practitioner Family
DX: K43.9 Ventral hernia without obstruction or gangrene (principal)
CPT/HCPCS: 74176

== ENCOUNTER 2023-11-22 18:23 | Emergency (ER) | payer MEDICARE, SELFPAY ==
[2023-11-22] VITALS (14 sets, daily range): BP systolic 144–180; BP diastolic 63–80; PULSE 67–79; RESP 20; TEMP 36.6; O2SAT 95–98
--- NOTE | 2023-11-22 18:24 | ECG_ITS ---
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 Measurements Intervals [place] Rate: 80 P: 32 [place]: 173 QRS: -59 QRSD: 120 T: 81 QT: 341 QTc: 393 Interpretive Statements SINUS RHYTHM LEFT ANTERIOR FASCICULAR BLOCK [QRS AXIS <= -45, QR IN I, RS IN II] MINIMAL VOLTAGE CRITERIA FOR LVH, CONSIDER NORMAL VARIANT [MEETS CRITERIA IN ONE OF: R(aVL), S(V1), R(V5), R(V5/V6)+S(V1)] NONSPECIFIC ST & T-WAVE ABNORMALITY Compared to ECG 10/19/2023 20:38:03 Left anterior fascicular block now present T-wave abnormality now present Left-axis deviation no longer present Electronically Signed On 11-23-2023 8:37:03 CDT by Dave Webber M.D. [email or web address]/[id number] maria [email or web address]
--- NOTE | 2023-11-22 18:27 | XRR_ITS ---
PROCEDURE INFORMATION: Exam: XR Chest Exam date and time: 11/22/2023 7:17 PM Age: 72 years old Clinical indication: Chest wall pain; Additional info: Cp TECHNIQUE: Imaging protocol: Radiologic exam of the chest. Views: 1 view. COMPARISON: CR XR chest 1V portable [id number] 10/19/2023 6:12 PM FINDINGS: Lungs: No focal consolidation. Pleural spaces: No evidence of pneumothorax. No evidence of pleural effusion. Heart/Mediastinum: Postsurgical changes of the mediastinum compatible with prior CABG/aortic valve replacement. Cardiomediastinal silhouette is otherwise within normal limits. Bones/joints: No evidence of acute osseous abnormality. XR/XR chest 1V portable [id number] IMPRESSION: 1. No acute cardiopulmonary abnormality.
--- NOTE | 2023-11-22 18:37 | ED_ITS ---
HPI - Chest Pain 2 General: Chief Complaint: Chest Pain Stated Complaint: CP Time Seen by Provider: 11/22/23 18:33 Source: patient Mode of arrival: ambulatory Limitations: no limitations History of Present Illness: 72-year-old male states that he has been having some chest pains today. States he did take 2 nitro currently chest pain-free states the center of his chest does radiate to his jaw. He denies any vomiting or diarrhea denies any severe dyspnea Associated symptoms: Deny abdominal pain, dyspnea, fever(s), nausea or vomiting Review of Systems 2 Const: Denies: fever(s), chills, body aches or change in appetite ENMT: Denies: throat pain or dental pain Card: Reports: chest pain Resp: Denies: dyspnea GI: Denies: abdominal pain, nausea, vomiting or diarrhea Musc: Denies: neck pain or back pain Skin/Breast: Denies: rash Neuro: Denies: headache(s) PFSH ED 2 PFSH: Medical History Hx of sleep apnea Essential hypertension Coronary artery disease Aortic valve sclerosis Hx of aortic valve stenosis H/O hand fracture Lower urinary tract symptoms Benign prostatic hyperplasia with lower urinary tract symptoms Surgical History Hx of CABG x 2 Aortic valve replaced Inspiris 23 mm Tissue Valve H/O heart artery stent Family History Family/Other Diabetes CAD (coronary artery disease) Hypertension Cancer Multiple Social History Smoking and tobacco/nicotine status: former use of tobacco/nicotine Alcohol intake: never Substance/Drug Use: never Marital status: Current occupational status: retired Physical Exam 2 Const: COMMON NORMALS: no acute distress, patient oriented x3 and healthy appearing HENMT: COMMON NORMALS: normocephalic and atraumatic HEAD & SCALP: n ormocephalic and atraumatic Eye: COMMON NORMALS: Equal, round and reactive pupils present and EOMs intact bilaterally PUPIL: Yes Equal, round and reactive pupils present Neck/C-Spine: COMMON NORMALS: full ROM and supple Chest: COMMONS NORMALS: normal inspection of the chest and normal palpation of entire chest wall Resp: COMMON NORMALS: normal respiratory effort, No retractions, No use of accessory muscles and clear to auscultation bilaterally AUSCULTATION: clear to auscultation bilaterally Cardio: COMMON NORMALS: regular rate, regular rhythm and No murmurs present (Cardio) RATE: regular rate RHYTHM: regular rhythm GI: COMMON NORMALS: Normal to inspection, nondistended, normoactive bowel sounds present, Soft to palpation, non-tender and no masses PALPATION: Yes Soft to palpation Extremity: COMMON NORMALS: normal to inspection and full ROM Neuro: COMMON NORMALS: patient oriented x3, moves all extremities and no focal motor deficits Psych: COMMON NORMALS: mental status grossly normal, Normal thought process present and cooperative THOUGHT PROCESS: Normal thought process present Skin: COMMON NORMALS: no rashes or lesions noted and no wounds GENERAL SKIN EXAM: no rashes or lesions noted Course 2 Vital Signs: Vital signs: Vital Signs Temperature 98 F 11/22/23 18:28 Pulse Rate 71 11/22/23 21:30 Respiratory Rate 20 H 11/22/23 18:28 Blood Pressure 163/77 11/22/23 21:30 Pulse Oximetry 97 11/22/23 21:30 Oxygen Delivery Me thod Room Air 11/22/23 21:30 MDM - Chest Pain Medical Decision Making Patient presents here with chest pain is resolved here his troponins here are negative he has no signs of acute coronary syndrome no signs of dissection or pulm embolism he is stable for discharge 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 Lab Data I reviewed the patient's lab results. 11/22/23 18:47 11/22/23 18:47 Radiology Impressions Chest X-Ray 11/22/23 18:27 IMPRESSION: 1. No acute cardiopulmonary abnormality. Laboratory Results WBC 7.45 10^3/uL (3.29-11.43) 11/22/23 18:47 RBC 4.20 10^6/uL (3.85-5.65) 11/22/23 18:47 Hgb 12.50 g/dL (11.27-16.99) 11/22/23 18:47 Hct 38.1 % (37-53) 11/22/23 18:47 MCV 90.7 fl (82-101) 11/22/23 18:47 MCH 29.8 pg (27-33) 11/22/23 18:47 MCHC 32.8 g/dL (30-55) 11/22/23 18:47 RDW 12.6 % (12.1-15.1) 11/22/23 18:47 Plt Count 251 10^3/cmm (157-399) 11/22/23 18:47 MPV 9.3 fL (7.4-10.4) 11/22/23 18:47 Neut % (Auto) 65.9 % 11/22/23 18:47 Lymph % (Auto) 22.7 % 11/22/23 18:47 Stearns % (Auto) 6.3 % 11/22/23 18:47 Eos % (Auto) 3.5 % 11/22/23 18:47 Baso % (Auto) 0.9 % 11/22/23 18:47 Neut # (Auto) 4.91 10^3/uL (1.8-7.7) 11/22/23 18:47 Lymph # (Auto) 1.7 10^3/uL (0.8-4.8) 11/22/23 18:47 Stearns # (Auto) 0.5 10^3/uL (0.2-0.9) 11/22/23 18:47 Eos # (Auto) 0.3 10^3/uL (0.0-0.8) 11/22/23 18:47 Baso # (Auto) 0.1 10^3/uL (0.0-0.1) 11/22/23 18:47 Nucleated RBC % (auto) 0 % 11/22/23 18:47 Nucleated RBCs # 0.0 /100WBC 11/22/23 18:47 PT 12.40 SECONDS (12.1-14.9) 11/22/23 18:47 INR 0.90 (0.8-1.2) 11/22/23 18:47 Sodium 137 mmol/L (136-145) 11/22/23 18:47 Potassium 4.6 mmol/L (3.5-5.1) 11/22/23 18:47 Chloride 102 mmol/L (98-107) 11/22/23 18:47 Carbon Dioxide 22 mmol/L (22-29) 11/22/23 18:47 Anion Gap 17.6 (5-19) 11/22/23 18:47 BUN 32 mg/dL (8-23) H 11/22/23 18:47 Creatinine 1.1 mg/dL (0.7-1.2) 11/22/23 18:47 GFR Calculation Not Reportable 11/22/23 18:47 Glucose 301 mg/dL (65-115) H 11/22/23 18:47 Calculated Osmolality 302 mOsm/kg (285-295) H 11/22/23 18:47 Calcium 9.8 mg/dL (8.5-10.5) 11/22/23 18:47 Total Bilirubin 0.2 mg/dL (0.15-1.2) 11/22/23 18:47 AST 14 U/L (0-40) 11/22/23 18:47 ALT 25 U/L (0-41) 11/22/23 18:47 Alkaline Phosphatase 69 U/L (40-130) 11/22/23 18:47 Troponin T Baseline 17 ng/L (0-15) H 11/22/23 18:47 Troponin T 120 Minute 17.21 ng/L (0-15) H 11/22/23 20:31 Delta Troponin T 0.21 ABS# (0-10) 11/22/23 20:31 Total Protein 6.8 g/dL (6.6-8.7) 11/22/23 18:47 Albumin 4.4 g/dL (3.5-5.2) 11/22/23 18:47 Globulin 2.4 g/dL (1.3-4.6) 11/22/23 18:47 Lipase 29 U/L (13-60) 11/22/23 18:47 All radiology interpretation(s) finalized by discharge EKG Data EKG 1: I personally reviewed and interpreted this EKG as follows: EKG interpretation date: 11/22/23 EKG interpretation time: 18:24 Interpretation: nsr hr [address] elevation qrs 120 qtc 376 EKG 2: I personally reviewed and interpreted this EKG as follows: EKG interpretation date: 11/22/23 EKG interpretation time: 20:58 Interpretation: nsr hr [address] or t wave abnormalities qrs 120 qtc 396 Discharge Plan Discharge Patient Disposition: Home Clinical Impression: Chest pain Condition: Stable Prescriptions: No Action tamsulosin 0.4 mg capsule 0.4 mg PO DAILY aspirin 325 mg tablet 325 mg PO DAILY lovastatin 20 mg tablet 20 mg PO DAILY metformin 500 mg tablet 500 mg PO DAILY omeprazole 20 mg capsule,delayed release(DR/EC) 20 mg PO BID Qty: 180 3RF nitroglycerin [Nitrostat] 0.4 mg tablet, sublingual 0.4 mg SUBLINGUAL Q5M PRN (Reason: chest pain) Qty: 25 3RF furosemide 40 mg tablet See Rx Instructions .ROUTE .COMPLEX Qty: 90 3RF Dose Instruction: TAKE ONE TABLET BY MOUTH DAILY. Rx Instructions: TAKE ONE TABLET BY MOUTH DAILY. potassium chloride 20 mEq tablet,ER particles/crystals See Rx Instructions .ROUTE .COMPLEX Qty: 180 3RF Dose Instruction: TAKE 2 TABLETS BY MOUTH DAILY WITH BREAKFAST. Rx Instructions: TAKE 2 TABLETS BY MOUTH DAILY WITH BREAKFAST. metoprolol tartrate 50 mg tablet 50 mg PO BID Qty: 180 3RF lisinopril 10 mg tablet See Rx Instructions .ROUTE .COMPLEX Qty: 90 1RF Dose Instruction: TAKE ONE TABLET BY MOUTH DAILY Rx Instructions: TAKE ONE TABLET BY MOUTH DAILY methocarbamol 750 mg tablet 750 mg PO Q6H PRN (Reason: spasms) Qty: 20 0RF Naprosyn 500 mg tablet 500 mg PO BID PRN (Reason: pain) Qty: 20 0RF Discharge Orders: Discharge ED (Routine); Ordered 11/22/23 Ordered By: Nawaf Cool Referrals: Ines Granger MD [Physician] - 4-7 days Discharge Diet: Advance as tolerated Discharge Activity: Resume usual activity Patient Instructions: Chest Pain (ED) Coding Level of Care Code ED Contact Lens Fitter for Jesica Romero
[2023-11-22 19:16] LABS: Basophils # 0.1 10^3/uL (0.0-0.1); Basophils % 0.9 %; Eosinophils # 0.3 10^3/uL (0.0-0.8); Eosinophils % 3.5 %; Hematocrit 38.1 % (37-53); Lymphocytes # 1.7 10^3/uL (0.8-4.8); Lymphocytes % 22.7 %; Mean Corpuscular HGB Conc 32.8 g/dL (30-55); Mean Corpuscular Hemoglobin 29.8 pg (27-33); Mean Corpuscular Volume 90.7 fl (82-101); Mean Platelet Volume 9.3 fL (7.4-10.4); Monocytes # 0.5 10^3/uL (0.2-0.9); Monocytes % 6.3 %; Neutrophils # 4.91 10^3/uL (1.8-7.7); Neutrophils % 65.9 %; Nucleated Red Blood Cells % 0 %; Platelet Count 251 10^3/cmm (157-399); Red Cell Distribution Width 12.6 % (12.1-15.1); White Blood Count 7.45 10^3/uL (3.29-11.43)
[2023-11-22 19:31] LABS: Troponin(5th) Baseline 17 ng/L (0-15)
[2023-11-22 19:35] LABS: Alanine Aminotransferase 25 U/L (0-41); Albumin Level 4.4 g/dL (3.5-5.2); Alkaline Phosphatase 69 U/L (40-130); Anion Gap 17.6 (5-19); Aspartate Amino Transferase 14 U/L (0-40); Blood Urea Nitrogen 32 mg/dL (8-23); Calcium 9.8 mg/dL (8.5-10.5); Carbon Dioxide 22 mmol/L (22-29); Chloride 102 mmol/L (98-107); Creatinine Clr Calc Pharmacy 67.6856; Globulin 2.4 g/dL (1.3-4.6); Glucose 301 mg/dL (65-115); Lipase 29 U/L (13-60); Osmolality Calculated 302 mOsm/kg (285-295); Potassium 4.6 mmol/L (3.5-5.1); Sodium 137 mmol/L (136-145); Total Bilirubin 0.2 mg/dL (0.15-1.2); Total Protein 6.8 g/dL (6.6-8.7)
--- NOTE | 2023-11-22 20:27 | ECG_ITS ---
[facility] Test Date: 2023-11-22 Pat Name: Trent Wooten Department: Room: Gender: Male Bologna Lacer: : 1950 Requested By: Nawaf Cool Order Number: [id number] Edy MD: Dave Webber M.D. Measurements Intervals Nicasio Rate: 69 P: 40 MD: 177 QRS: -57 QRSD: 120 T: 76 QT: 376 QTc: 405 Interpretive Statements SINUS RHYTHM LEFT ANTERIOR FASCICULAR BLOCK [QRS AXIS <= -45, QR IN I, RS IN II] Compared to ECG 11/22/2023 18:24:46 T-wave abnormality no longer present Electronically Signed On 11-23-2023 8:38:21 CDT by Dave Webber M.D. [id number]
[2023-11-22 21:35] LABS: Troponin 5 2HR 17.21 ng/L (0-15); Troponin 5 2HR Delta 0.21 ABS# (0-10)
--- NOTE | 2023-11-28 09:39 | DCPLANNER ---
Message sent to Cardiology for follow on Chest Pain
== END 2023-11-22 22:05 | disposition home or self-care (01) ==
PROVIDERS: Emergency Provider Emergency Medicine; PCP Nurse Practitioner Family
DX: R07.9 Chest pain, unspecified (principal); Z79.82 Long term (current) use of aspirin; Z79.84 Long term (current) use of oral hypoglycemic drugs; I10 Essential (primary) hypertension; I25.10 Atherosclerotic heart disease of native coronary artery without angina pectoris; Z95.1 Presence of aortocoronary bypass graft; Z87.891 Personal history of nicotine dependence
CPT/HCPCS: 71045; 80053; 83690; 84484; 85025; 85610; 93005; 99285

== ENCOUNTER → 2023-12-12 12:18 | Outpatient (BNVA) | payer MEDICARE, SELFPAY | PROVIDERS: PCP Nurse Practitioner Family; Visit Provider Nurse Practitioner Family | DX: Z95.2 Presence of prosthetic heart valve (principal); I25.10 Atherosclerotic heart disease of native coronary artery without angina pectoris; I10 Essential (primary) hypertension; Z87.891 Personal history of nicotine dependence | CPT/HCPCS: 99214 ==

== ENCOUNTER → 2024-01-04 08:46 | Outpatient (BNVA) | payer MEDICARE, SELFPAY | PROVIDERS: PCP Nurse Practitioner Family; Visit Provider Podiatrist Foot & Ankle Surgery | DX: L60.3 Nail dystrophy (principal); G62.9 Polyneuropathy, unspecified; E11.42 Type 2 diabetes mellitus with diabetic polyneuropathy; Z79.84 Long term (current) use of oral hypoglycemic drugs | CPT/HCPCS: 11721; 99203 ==

== ENCOUNTER → 2024-01-14 09:54 | Outpatient (BNVA) | payer MEDICARE, SELFPAY | PROVIDERS: PCP Nurse Practitioner Family; Visit Provider Internal Medicine Cardiovascular Disease | DX: I25.118 Atherosclerotic heart disease of native coronary artery with other forms of angina pectoris (principal); I10 Essential (primary) hypertension; Z95.2 Presence of prosthetic heart valve; E78.5 Hyperlipidemia, unspecified; Z95.1 Presence of aortocoronary bypass graft | CPT/HCPCS: 99214 ==

== ENCOUNTER 2024-01-23 09:52 | Outpatient (CLI) | payer MEDICARE, SELFPAY ==
[2024-01-23 11:00] VITALS: BMI 38.5
--- NOTE | 2024-01-23 11:00 | NMCV_ITS ---
NM nicola perf SPECT r/s* [id number] Trent Wooten Age: 73 Gender: M : 1950 Exam Date: 01/23/2024 11:13 Ordering Phys: Whitney Wilde Technologist: JOURDAN Wilson Exam Location: [facility] Indications: ATHEROSCLEROTIC HEART DISEASE STRESS TEST Please see separate stress test report in [facility] for full findings IMAGE PROTOCOL Rest/Stress 1 Lexiscan Day Radiopharmaceutical Dose (mCi) Administration Site Administered by Rest: Tc-99m 10.7 IV JOURDAN Salazar Sestamibi Stress:Tc-99m 32.7 IV JOURDAN Salazar Sestamibi Rest: 23-Jan-2024 60 Discovery 630 Stress: 23-Jan-2024 30 Discovery 630 0.4mg Lexiscan. Supine position only as patient was unable to lay prone. SPECT RESULTS Technical Quality: Excellent Raw Data Analysis: Normal Image Corrections: No attenuation or motion correction applied Summed Stress Score: 2 Summed Rest Score: 1 Summed Difference Score: 1 PERFUSION FINDINGS There is medium sized area of partially reversible perfusion defect noted in the inferolateral wall. This is consistent with medium sized area of prior infarct with small to medium sized area of sonny-infarct iscchemia in the left circumflex artery territory. FUNCTIONAL RESULTS (calculated via Gated SPECT) Stress Image LV EF (%): 74 Stress EDV (mL):89 TID: 1.13 Stress ESV (mL):23 FUNCTIONAL FINDINGS: There is normal left ventricular systolic function. IMPRESSIONS 1. Medium sized area of prior infarct with small to medium sized area of sonny- infarct ischemia seen in the left circumflex artery territory. 2. LV systolic function is normal Dave Webber MD (Electronically Signed) Final Date: 25 Jan 2024 12:10 S
--- NOTE | 2024-01-23 11:00 | ECG_ITS ---
[facility] Test Date: 2024-01-23 Pat Name: Trent Wooten Department: Room: Gender: Male Machine Sneller: : 1950 Requested By: Whitney Wilde Order Number: [id number] Snow MD: Interpretive Statements [email or web address]
[2024-01-23] MEDS: regadenoson 0.4 Mg/5 ml Syringe 0.400000000000000022 MG IVP (11:53)
[2024-01-23 12:05] VITALS: BP 114/48; PULSE 77
== END 2024-01-23 09:53 | disposition home or self-care (01) ==
PROVIDERS: PCP Nurse Practitioner Family; Visit Provider Nurse Practitioner Family
DX: R07.9 Chest pain, unspecified (principal)
CPT/HCPCS: 36415; 78452; 93017; 96374; A9500; J2785

== ENCOUNTER 2024-01-23 16:23 | Emergency (ER) | payer MEDICARE, SELFPAY ==
[2024-01-23 16:37] VITALS: BP 131/59; PULSE 75; RESP 16; TEMP 36.7; O2SAT 95
--- NOTE | 2024-01-23 16:57 | XRR_ITS ---
PROCEDURE INFORMATION: Exam: XR Right Shoulder Exam date and time: 01/23/2024 5:45 PM Age: 73 years old Clinical indication: Injury or trauma; Fall; Other: Pain TECHNIQUE: Imaging protocol: Radiologic exam of the right shoulder. Views: 2 or more views. COMPARISON: CR XR chest 1V portable [id number] 11/22/2023 7:17 PM FINDINGS: Bones/joints: Normal. Soft tissues: Normal. XR/XR shoulder RT min 2V* [id number] IMPRESSION: No acute findings.
--- NOTE | 2024-01-23 16:57 | XRR_ITS ---
PROCEDURE INFORMATION: Exam: XR Right Knee Exam date and time: 01/23/2024 5:49 PM Age: 73 years old Clinical indication: Injury or trauma; Fall; Other: Pain TECHNIQUE: Imaging protocol: Radiologic exam of the right knee. Views: 3 views. COMPARISON: CR XR knee RT 1-2V [id number] 12/05/2017 8:45 AM FINDINGS: Bones/joints: Trace joint effusion. No fracture. Soft tissues: Normal. XR/XR knee RT 3V* [id number] IMPRESSION: 1. Trace joint effusion. 2. No fracture.
--- NOTE | 2024-01-23 18:02 | W.ED.FALL ---
HPI - Fall General: Chief Complaint: Fall Stated Complaint: fell, knee and shoulder pain Time Seen by Provider: 01/23/24 17:55 History of Present Illness: 73-year-old man who was returning home from stress test and when he got out of the car he fell going in the house. He is having some mild shoulder pain and mild right knee pain. He has full range of motion. No deformities. No bruising. He did not hit his head. No loss of consciousness. No altered mental status. No nausea or vomiting. No chest pain. No shortness of breath. No abdominal pain. No pelvis pain. No hip pain. Review of Systems Narrative: Constitutional symptoms: Negative except as documented in HPI. Skin symptoms: Negative except as documented in HPI. Eye symptoms: Negative except as documented in HPI. ENMT symptoms: Negative except as documented in HPI. Respiratory symptoms: Negative except as documented in HPI. Cardiovascular symptoms: Negative except as documented in HPI. Gastrointestinal symptoms: Negative except as documented in HPI. Genitourinary symptoms: Negative except as documented in HPI. Musculoskeletal symptoms: Negative except as documented in HPI. Neurologic symptoms: Negative except as documented in HPI. Psychiatric symptoms: Negative except as documented in HPI. Endocrine symptoms: Negative except as documented in HPI. PFSH ED PFSH: Medical History Hx of sleep apnea Essential hypertension Coronary artery disease Hx of aortic valve stenosis H/O hand fracture Lower urinary tract symptoms Benign prostatic hyperplasia with lower urinary tract symptoms Surgical History Hx of CABG x 2 Aortic valve replaced Inspiris 23 mm Tissue Valve H/O heart artery stent Family History Family/Other Diabetes CAD (coronary artery disease) Hypertension Cancer Multiple Social History Smoking and tobacco/nicotine status: former use of tobacco/nicotine Alcohol intake: never Substance/Drug Use: never Marital status: Current occupational status: retired Physical Exam Narrative: EXAM NARRATIVE: General: Alert, no acute distress. Skin: Warm, dry. Head: Normocephalic, atraumatic. Neck: Supple, trachea midline. Eye: Extraocular movements are intact. Ears, nose, mouth and throat: mucosa moist. Cardiovascular: Regular, Normal peripheral perfusion. Respiratory: Lungs are clear to auscultation, respirations are non-labored, breath sounds are equal, Symmetrical chest wall expansion. Gastrointestinal: Soft, Nontender, Non distended, Normal bowel sounds. Musculoskeletal: Normal ROM, no deformity. Patient says he has some slight pain when he lifts his arm up behind his shoulder but that is mostly gone now. Also some slight pain in his knee. No bruising. No redness. Neurological: Alert and oriented, No focal neurological deficit observed. Psychiatric: Cooperative, appropriate mood & affect. Course Vital Signs: Vital signs: Vital Signs Temperature 98.0 F 01/23/24 16:37 Pulse Rate 75 01/23/24 16:37 Respiratory Rate 16 01/23/24 16:37 Blood Pressure 131/59 01/23/24 16:37 Pulse Oximetry 95 01/23/24 16:37 Oxygen Delivery Me thod Room Air 01/23/24 16:37 MDM - Fall Medical Decision Making Medical decision making: Differential diagnosis including but not limited to and based on the above HPI, review of systems and physical exam: Fairly low suspicion for any kind of fractures but an x-ray of the shoulder and knee on the right side were ordered to rule out fractures and dislocations Orders placed to evaluate differential diagnosis based on the above differential, HPI and physical exam X-ray of the right shoulder: No acute process. No fractures. No dislocations. This was reviewed and interpreted by myself the emergency room physician. I also reviewed the radiology report. X-ray of the right knee: No acute process. No fracture. No dislocation. This was reviewed and interpreted by myself the emergency room physician. I also reviewed the radiology report. I reviewed the patient's medical record. Reexamination: Patient remained stable. No increased work of breathing. No altered mental status. No focal motor deficits. Assessment and plan: Fall Shoulder strain Knee strain - Discharged home - Discussed plan with patient. Answered any questions. - Evaluation and treatment of this problem were appropriate in the emergency setting. Lab Data Radiology Impressions Knee X-Ray 01/23/24 16:57 IMPRESSION: 1. Trace joint effusion. 2. No fracture. Shoulder X-Ray 01/23/24 16:57 IMPRESSION: No acute findings. All radiology interpretation(s) finalized by discharge Discharge Plan Discharge Patient Disposition: Home Clinical Impression: Fall Qualifiers: Encounter type: initial encounter Qualified Code(s): W19.XXXA - Unspecified fall, initial encounter Shoulder strain Qualifiers: Encounter type: initial encounter Laterality: right Qualified Code(s): S46.911A - Strain of unspecified muscle, fascia and tendon at shoulder and upper arm level, right arm, initial encounter Knee strain Qualifiers: Encounter type: initial encounter Laterality: right Qualified Code(s): S86.911A - Strain of unspecified muscle(s) and tendon(s) at lower leg level, right leg, initial encounter Condition: Stable Prescriptions: No Action tamsulosin 0.4 mg capsule 0.4 mg PO DAILY aspirin 325 mg tablet 325 mg PO DAILY lovastatin 20 mg tablet 20 mg PO DAILY potassium chloride 20 mEq tablet,ER particles/crystals See Rx Instructions .ROUTE .COMPLEX Dose Instruction: TAKE 2 TABLETS BY MOUTH DAILY WITH BREAKFAST. Rx Instructions: TAKE 1 TABLETS BY MOUTH DAILY WITH BREAKFAST. metformin 500 mg tablet 500 mg PO DAILY (DME) diabetic shoes with 3 inserts See Rx Instructions .Route .MEDSUPPLY Qty: 1 0RF Rx Instructions: As directed to the shoe mikey omeprazole 20 mg capsule,delayed release(DR/EC) 20 mg PO BID Qty: 180 3RF nitroglycerin [Nitrostat] 0.4 mg tablet, sublingual 0.4 mg SUBLINGUAL Q5M PRN (Reason: chest pain) Qty: 25 3RF furosemide 40 mg tablet See Rx Instructions .ROUTE .COMPLEX Qty: 90 3RF Dose Instruction: TAKE ONE TABLET BY MOUTH DAILY. Rx Instructions: TAKE ONE TABLET BY MOUTH DAILY. metoprolol tartrate 50 mg tablet 50 mg PO BID Qty: 180 3RF lisinopril 10 mg tablet See Rx Instructions .ROUTE .COMPLEX Qty: 90 1RF Dose Instruction: TAKE ONE TABLET BY MOUTH DAILY Rx Instructions: TAKE ONE TABLET BY MOUTH DAILY methocarbamol 750 mg tablet 750 mg PO Q6H PRN (Reason: spasms) Qty: 20 0RF Naprosyn 500 mg tablet 500 mg PO BID PRN (Reason: pain) Qty: 20 0RF Discharge Orders: Discharge ED (Routine); Ordered 01/23/24 Ordered By: Jazzy Vences Referrals: Jasmin Lucero FNP [Primary Care Provider] - Discharge Diet: Usual diet Discharge Activity: Increase activity as tolerated Patient Instructions: Rotator Cuff Injury (ED), Knee Pain (ED) Activity Restrictions/Additional Instructions: Thank you for choosing [facility] for your healthcare needs today. Please realize this is an emergency room and that we are providing you with a medical screening exam and this may not be complete and all inclusive of all the testing and or work up that you may need to determine your ailment or severity of your illness. You have been screened and evaluated and felt safe for discharge. Health conditions do change or evolve sometimes and as such it is important that you follow up with your Primary Doctor to be re checked, 3-5 days is a general good time frame for follow up. You are always welcome to return to the ED for re assessment if your symptoms are worsening or you have new concerns Coding Level of Care Code ED Itinerant Teacher Assistant for Jesica Romero
[2024-01-23 18:35] VITALS: PULSE 80; RESP 18; O2SAT 95
== END 2024-01-23 18:36 | disposition home or self-care (01) ==
PROVIDERS: Emergency Provider Emergency Medicine; PCP Nurse Practitioner Family
DX: S46.911A Strain of unspecified muscle, fascia and tendon at shoulder and upper arm level, right arm, initial encounter (principal); S86.911A Strain of unspecified muscle(s) and tendon(s) at lower leg level, right leg, initial encounter; Z79.82 Long term (current) use of aspirin; Z79.84 Long term (current) use of oral hypoglycemic drugs; I10 Essential (primary) hypertension; I25.10 Atherosclerotic heart disease of native coronary artery without angina pectoris; Z95.1 Presence of aortocoronary bypass graft; Z87.891 Personal history of nicotine dependence; W19.XXXA Unspecified fall, initial encounter
CPT/HCPCS: 73030; 73562; 99284

== ENCOUNTER 2024-02-08 08:31 | Outpatient (CLI) | payer MEDICARE, SELFPAY ==
[2024-02-08] VITALS (18 sets, daily range): BP systolic 109–155; BP diastolic 39–88; PULSE 63–84; RESP 14–32; TEMP 36.7–36.8; O2SAT 93–97; BMI 38.5
[2024-02-08] MEDS: diphenhydrAMINE 50 mg Capsule PO (09:00)
--- NOTE | 2024-02-08 09:00 | XACV_ITS ---
Exam Room: 2 Ht: 168 cm Wt: 108 kg BSA: 2.30 m2 Gender: Male : 1950 Any Known Allergies: Other Exam Priority: Routine Procedure(s): Procedure Description: Diagnostic procedure Procedure Description: Venous Graft Catheterization Procedure Description: TOVAR Graft Catheterization Procedure Description: Coronary Angiography El[place] LI; Diagnostic Cath Status: Elective Diagnostic Findings * The left main is a medium caliber vessel with no significant stenotic lesions. Mild coronary calcification was noted in the artery. * The left anterior desending artery is a medium caliber vessel which was found to have a high-grade ostial stenosis proximally. The mid segment of the artery was found to have moderate diffuse disease. Competitive blood flow was noted distally. The second diagonal branch was found to have moderate to severe diffuse disease.. * The circumflex artery is a large-caliber vessel with mild diffuse disease proximally. No significant stenotic lesions are seen. * The right coronary artery is a medium caliber dominant vessel which was found to have moderate to severe diffuse disease in the proximal, mid and distal segments. Competitive flow was noted in the distal artery. * There is evidence of nasal graft to the distal right coronary artery was found to be patent. At the proximal anastomotic site, there was 50 to 60% ostial narrowing. Rest of the graft was found to be widely patent. * The TOVAR to the LAD was found to be widely patent. The distal LAD was found to have minimal intimal irregularities. Conclusions 1. This 73-year-old white male with history of hypertension, type 2 diabetes, dyslipidemia, status post two-vessel coronary artery bypass surgery, presents with recurrent episodes of chest pain. He had multiple ER visits for these complaints. The Myocardial perfusion imaging revealed areas of fixed and reversible defects in the distribution of the right coronary artery. In view of his ongoing symptoms, in order to further evaluate his coronary status as well as the graft status, a cardiac catheterization was recommended. Patient underwent coronary angiogram and graft angiogram today. The findings are as follows. 2. 1. No significant lesions in the left main artery.2. High-grade ostial stenosis of the LAD with moderate diffuse disease in the midsegment. Moderate to severe diffuse disease in the second diagonal branch. 3 mild disease in the proximal circumflex artery. 4. High-grade diffuse disease in the proximal, mid and distal segments of the right coronary artery . Patent TOVAR to the LAD.6. Patent venous graft to the distal RCA. 50 to 60% ostial narrowing at the proximal anastomotic site.. 3. I reviewed and discussed the cardiac catheterization data with the Dr. Webber. It was thought to be appropriate to optimize medical treatment at this point. The lesion at the anastomotic site did not appear to be the culprit in causing the symptoms. Diagnostic RX Recommendation: medical therapy and/or counseling Pressures Phase:Rest AO : 136 / 62 ( 91 ) @ 11:29:00 AM 116 / 77 ( 95 ) @ 11:32:00 AM Clinical Evaluation EBL: 5mL-10mL Procedural Details Pre-Procedure Time Out. Identified patient by full name and date of as verbalized by the patient/guarantor. Does the consent match the physician's order: Yes. Accurate & Complete Informed Consent: Yes. Inpatient/Outpatient History & Physical on Chart: Yes. If H&P is completed, is and addenduem needed: No; If yes, is the addendum complete: N/A. Visualize and Verify Site with Patient/Guarantor: N/A. Relevant Radiology Images available: Yes. Pre-op teaching completed and patient verbalized understanding. The risks, benefits, and alternatives of sedation and/or procedure were discussed by physician. The patient agrees to continue. Procedure started. Current Diagnosis : Chest Pain. [facility] Clinical Fraility Score: 4: Vulnerable. Teradata Developer Indications: Suspected CAD. Chest Pain Symptom Assessment: Atypical Angina. Correct patient, site and procedure confirmed by cath team. Current diagnosis: Chest Pain. PERRLA. Strong, equal hand acute specialist bilaterally. Lungs clear x 5 lobes. IV Site on Arrival: 20 gauge in the right forearm. IV Fluids: 0.9% NaCl at KVO. 0 mL infused prior to labor contractor. Pre Procedural Pulses: bilateral dorsalis pedis was 3+. Pre Procedural Pulses: bilateral posterior tibial was 2+. Oxygen started at 2liters/min via nasal canula. bilateral groins was prepped with chloroprep then draped in the usual sterile fashion. Baseline sample Acquired. HR: 63 BPM. Physician arrived. Physician scrubbed in. Immediate Pre-Procedure Time Out. Correct Patient: Yes; Correct Procedure: Yes; Correct Site: Yes; Correct Patient Position: Yes; Correct Supplies: Yes; Dried Flammable Prep: Yes; Blood Products Available: N/A;. Lidocaine 1% infiltrated to the right groin. Arterial access obtained with micropuncture set. A 5 estonian JL4 catheter in over wire. Multiple views taken of left coronary artery. Catheter removed over the standard wire. A 5 estonian JR4 catheter in over wire. Multiple views taken of right coronary artery. SVG's to RCA visualized and patent. Catheter removed over the exchange wire. A 5 estonian IM catheter in over wire. Dr. Webber called to review films. TOVAR to LAD visualized. Catheter removed over the standard wire. Dr. Granger scrubbed out. Dr. Webber arrived. Side port of sheath attached to Normal Saline flush at KVO to maintain patency. Vital chart was stopped. A Suture was successful obtaining hemostatsis at the Right Femoral artery insertion site. Arterial sheath flushed and connected to tranducer and pressure bag with heparinized saline. Post Procedure: Pulses reassessed and unchanged. PERRLA. Strong, equal hand acute specialist bilaterally. No VTE prophylaxis required. Medication's Wasted: Lidocaine 1% = 10 mL. Medication's Wasted: Heparin = 2500 units. Medication's Wasted: Other = Versed 1 mg. Total IV fluids: 50 mL. Complications: None. Estimated blood loss: 5mL-10mL. Responsiveness - Normal response to verbal stimuli; alert and oriented, PERRLA. Airway - Unaffected, no intervention required; spontaneous ventilation. Circulation: W/N/L, pulses unchanged. Nausea/Vomiting: No. Procedure completed. Patient transferred by bed to 1st floor. Access Site Site: Right Femoral artery Sheath Size: 6 Fr Hemostasis Method: Suture Hemostasis Success: Successful Procedure Medications Start: 10:11 AM Stop: 10:11 AM Medication: Versed Amount: 1 mg Route: I.V. Start: 10:13 AM Stop: 10:13 AM Medication: Fentanyl Amount: 25 mcg Route: I.V. Start: 10:16 AM Stop: 10:16 AM Medication: Versed Amount: 1 mg Route: I.V. Start: 10:23 AM Stop: 10:23 AM Medication: Fentanyl Amount: 25 mcg Route: I.V. Start: 10:27 AM Stop: 10:27 AM Medication: Fentanyl Amount: 25 mcg Route: I.V. Start: 10:30 AM Stop: 10:30 AM Medication: Versed Amount: 1 mg Route: I.V. Start: 10:33 AM Stop: 10:33 AM Medication: Heparin Amount: 1500 units Route: I.V. Start: 10:44 AM Stop: 10:44 AM Medication: Fentanyl Amount: 25 mcg Route: I.V. I, the attending physician, have reviewed and verified all procedure medications. Yes, all medications given per verbal order History/Risk Factors Hypertension: Yes Dyslipidemia: Yes Peripheral Arterial Disease (PAD): No Myocardial Infarction (NV): No Obesity: Yes Renal Disease: No Prior Interventions PCI: Yes CABG: Yes Valve Surgery: No Report Signatures Finalized by Dr Ines Granger MD [facility] on 02/08/2024 09:33 PM
--- NOTE | 2024-02-08 10:03 | W.PM.OPSUD ---
Surgery/Procedure H&P Update DATE OF PROCEDURE: February 08, 2024 DATE H&P PERFORMED: 01/14/24 H&P UPDATE INFORMATION: I have reviewed H&P completed within last 30 days, I have examined patient prior to procedure and No changes to prior documentation PREOP DIAGNOSIS: ASHD. CABG PRIMARY INDICATION FOR PROCEDURE: Patient with recurrent episodes of chest pain, multiple ER visits with chest pain/ abnormal Myocardial perfusion imaging PLANNED PROCEDURE: Operation Date: 02/08/24 10:00 Proposed Procedures p Cardiac Catheterization 89988, R94.39, I25.10(Left) - Ines Granger MD PATIENT REASSESSED PRIOR TO SEDATION, WITH NO CHANGE NOTED: Yes PHYSICAL EXAM: alert, oriented x 3, clear to auscultation bilaterally and regular rate & rhythm AIRWAY EVAL/ANESTHESIA PLAN: normal airway, see other exam findings, ASA III, Monitored Anesthesia, Local Anesthesia, Risks, benefits & alternatives of sedation and/or procedure discussed and Patient agrees to continue as planned
--- NOTE | 2024-02-08 11:41 | PC.NURSE ---
received from cardiac cardiovascular lab director at 1105 via bed.report received.pt is alert and oriented x 4.denies pain at present.sr on monitor.right femoral arterial sheath is intact to pressurized system.drsg is dry and intact.no hematoma noted.right leg is warm to touch and with brisk capillary refill.palpable dp pulse noted.pt instructed in activity restrictions s/p femoral artery procedure and instructed to notify staff for any bleeding,pain,numbness...or for any concerns at all.pt verb understanding of instructions
[2024-02-08] MEDS: lisinopril 10 mg Tablet PO (12:22)
--- NOTE | 2024-02-08 13:58 | PC.NURSE ---
right femoral arterial sheath pulled at 1315.manual pressure held x 20 min.vss through-out procedure.no hematoma formation noted.right leg remained warm to touch and with brisk capillary refill.pt instructed in activity restrictions s/p femoral artery sheath pull..and instructed to notify staff for any bleeding,pain,numbness..or for any concerns at all.pt verb understanding of instructions.
[2024-02-08] MEDS: metoprolol tartrate 50 mg Tablet PO (17:41)
[2024-02-08] MEDS: pantoprazole DR 40 mg Tablet PO (17:42)
--- NOTE | 2024-02-08 20:13 | PC.NURSE ---
Patient was ambulated in hallway, right groin site is dry and intact, no hematoma present. Pedal pulses are palpable. Patient was dressed, IV removed and discharge teaching was provided to patient and . Patient was transported to car by wheelchair and discharged with all belongings.
== END 2024-02-08 20:13 | disposition home or self-care (01) ==
LOC: CCL 08:36 → CSU 12:29
PROVIDERS: PCP Nurse Practitioner Family; Visit Provider Internal Medicine Cardiovascular Disease
DX: I25.118 Atherosclerotic heart disease of native coronary artery with other forms of angina pectoris (principal); I10 Essential (primary) hypertension; E11.9 Type 2 diabetes mellitus without complications; Z95.1 Presence of aortocoronary bypass graft; E78.5 Hyperlipidemia, unspecified; E66.9 Obesity, unspecified; Z68.38 Body mass index [BMI] 38.0-38.9, adult; G47.30 Sleep apnea, unspecified; Z79.82 Long term (current) use of aspirin; N40.1 Benign prostatic hyperplasia with lower urinary tract symptoms; Z95.5 Presence of coronary angioplasty implant and graft; Z87.891 Personal history of nicotine dependence; Z82.49 Family history of ischemic heart disease and other diseases of the circulatory system; Z95.2 Presence of prosthetic heart valve
CPT/HCPCS: 36415; 80048; 85025; 93455; 96374; 96375; 99152; 99153; C1769; C1887; C1894; G0378; J1644; J2250; J3010; J7030; Q0163; Q9967

== ENCOUNTER → 2024-03-07 08:50 | Outpatient (BNVA) | payer MEDICARE, SELFPAY | PROVIDERS: PCP Nurse Practitioner Family; Visit Provider Podiatrist Foot & Ankle Surgery | DX: L60.3 Nail dystrophy (principal); G62.9 Polyneuropathy, unspecified; E11.42 Type 2 diabetes mellitus with diabetic polyneuropathy; I25.10 Atherosclerotic heart disease of native coronary artery without angina pectoris; Z87.891 Personal history of nicotine dependence; Z79.84 Long term (current) use of oral hypoglycemic drugs | CPT/HCPCS: 11721; 36415; 80048; 99214 ==

== ENCOUNTER → 2024-05-12 09:39 | Outpatient (BNVA) | payer MEDICARE, SELFPAY | PROVIDERS: PCP Nurse Practitioner Family; Visit Provider Podiatrist Foot & Ankle Surgery | DX: L60.3 Nail dystrophy (principal); G62.9 Polyneuropathy, unspecified; B35.3 Tinea pedis; E11.42 Type 2 diabetes mellitus with diabetic polyneuropathy; Z79.84 Long term (current) use of oral hypoglycemic drugs | CPT/HCPCS: 11721; 99213 ==

== ENCOUNTER 2024-06-06 08:32 | Outpatient (CLI) | payer MEDICARE, SELFPAY ==
--- NOTE | 2024-06-06 08:39 | XR_ITS ---
WS: [id number] XR lumbar spine min 4V [id number] REASON FOR EXAM: LOW BACK PAIN FINDINGS: Mild rotatory levoscoliosis. Normal lordosis. Mild compression deformity of L2 which appears chronic. Vertebral body osteophytosis mild to moderate L1-S1. Mild narrowing of the L1-L2 disc space. Mild narrowing of the L4-L5 and moderate narrowing of the L5- S1 disc spaces. No spondylolysis. No significant listhesis. Moderate degenerative arthropathy in the facet joints L3-S1. XR/XR lumbar spine min 4V [id number] IMPRESSION: Degenerative spondylosis of the lumbar spine as above.
== END 2024-06-06 08:33 | disposition home or self-care (01) ==
PROVIDERS: PCP Nurse Practitioner Family; Visit Provider Nurse Practitioner Family
DX: M47.896 Other spondylosis, lumbar region (principal); M25.78 Osteophyte, vertebrae
CPT/HCPCS: 72110

== ENCOUNTER 2024-07-08 10:46 | Outpatient (CLI) | payer MEDICARE, SELFPAY ==
--- NOTE | 2024-07-08 10:52 | MR_ITS ---
WS: [id number] MRI LUMBAR SPINE NONCONTRAST TECHNIQUE: Sagittal T1, T2 and STIR imaging. Axial T1 and T2 imaging. CLINICAL INFORMATION: LOW BACK PAIN/INTERVERTEBRAL DISC DEGENERATION COMPARISON: None. FINDINGS: Mild lumbar curve. No acute compression. Slight anterolisthesis L4 on L5. L1-L2: Slight retrolisthesis. Mild annular bulging with slight narrowing of the subarticular recess b ilaterally. Moderate facet arthropathy. Mild LEFT and no significant RIGHT foraminal narrowing. Mild central canal stenosis. L2-L3: Mild annular bulging. Moderate narrowing of the thecal sac due to disc bulge and facet arthrop athy with prominent epidural fat. Mild bilateral foraminal narrowing. L3-L4: Mild annular bulging. Mild to moderate narrowing of the thecal sac. Moderate facet arthropathy ligamentum flavum hypertrophy. Prominent epidural fat. Mild LEFT foraminal narrowing. L4-L5: Slight anterolisthesis. Mild disc bulging in combination with facet arthropathy and ligamentum flavum hypertrophy results in moderate to severe central canal stenosis measuring 6 mm. Mild RIGHT g reater than LEFT foraminal narrowing. L5-S1: Mild disc bulge with osteophytic ridging. Tapering of the thecal sac. RIGHT paracentral protru ashley with slight contact of the traversing S1 nerve roots. Moderate facet arthropathy. Mild LEFT fora keyla narrowing. Visualized pelvic bony structures: Normal. Paravertebral soft tissues: Normal. Mild central canal stenosis in the cervical spine music specialist imaging at C3-C6. MR/MR lumbar spine wo con* [id number] IMPRESSION: 1. Mild lumbar curve. No acute compression. 2. Moderate to severe central canal stenosis L4-5 with slight anterolisthesis L4 on L5. 3. Moderate narrowing of the thecal sac L2-L3 and mild to moderate narrowing L 3-L4. 4. Mild central canal stenosis L1-2 with narrowing of the subarticular recess. 5. Otherwise mild foraminal narrowing as described above. 6. Moderate to advanced arthropathy L4-L5 and L5-S1.
== END 2024-07-08 10:47 | disposition home or self-care (01) ==
LOC: RAD 10:47
PROVIDERS: PCP Nurse Practitioner Family; Visit Provider Nurse Practitioner Family
DX: M51.360 Other intervertebral disc degeneration, lumbar region with discogenic back pain only (principal); M47.896 Other spondylosis, lumbar region; M99.63 Osseous and subluxation stenosis of intervertebral foramina of lumbar region; M25.78 Osteophyte, vertebrae
CPT/HCPCS: 72148

== ENCOUNTER → 2024-07-16 08:16 | Outpatient (BNVA) | payer MEDICARE, SELFPAY | PROVIDERS: PCP Nurse Practitioner Family; Visit Provider Podiatrist Foot & Ankle Surgery | DX: L60.3 Nail dystrophy (principal); G62.9 Polyneuropathy, unspecified; B35.3 Tinea pedis; E11.42 Type 2 diabetes mellitus with diabetic polyneuropathy; Z79.84 Long term (current) use of oral hypoglycemic drugs; Z79.4 Long term (current) use of insulin | CPT/HCPCS: 11721 ==

== ENCOUNTER → 2024-07-29 09:45 | Outpatient (BNVA) | payer MEDICARE, SELFPAY | PROVIDERS: PCP Nurse Practitioner Family; Visit Provider Internal Medicine Cardiovascular Disease | DX: I25.10 Atherosclerotic heart disease of native coronary artery without angina pectoris (principal); I10 Essential (primary) hypertension; Z95.2 Presence of prosthetic heart valve; E78.5 Hyperlipidemia, unspecified; E11.9 Type 2 diabetes mellitus without complications; Z79.84 Long term (current) use of oral hypoglycemic drugs; Z79.4 Long term (current) use of insulin | CPT/HCPCS: 99213 ==

== ENCOUNTER → 2024-07-31 08:18 | Outpatient (BNVA) | payer MEDICARE, SELFPAY | PROVIDERS: PCP Nurse Practitioner Family; Referring Provider Nurse Practitioner Family; Visit Provider Orthopaedic Surgery | DX: M54.50 Low back pain, unspecified (principal); M54.9 Dorsalgia, unspecified; G89.29 Other chronic pain; M48.062 Spinal stenosis, lumbar region with neurogenic claudication | CPT/HCPCS: 99204 ==

== ENCOUNTER → 2024-09-16 08:23 | Outpatient (BNVA) | payer MEDICARE, SELFPAY | PROVIDERS: PCP Nurse Practitioner Family; Visit Provider Podiatrist Foot & Ankle Surgery | DX: L60.3 Nail dystrophy (principal); G62.9 Polyneuropathy, unspecified; B35.3 Tinea pedis; E11.42 Type 2 diabetes mellitus with diabetic polyneuropathy; Z79.84 Long term (current) use of oral hypoglycemic drugs; Z79.4 Long term (current) use of insulin | CPT/HCPCS: 11721 ==

== ENCOUNTER → 2024-10-06 09:36 | Outpatient (BNVA) | payer MEDICARE, SELFPAY | PROVIDERS: PCP Nurse Practitioner Family; Referring Provider Orthopaedic Surgery; Visit Provider Anesthesiology Pain Medicine | DX: M48.062 Spinal stenosis, lumbar region with neurogenic claudication (principal) | CPT/HCPCS: 99204 ==

== ENCOUNTER 2024-10-08 08:47 | Outpatient (CLI) | payer MEDICARE, SELFPAY ==
--- NOTE | 2024-10-08 08:54 | USCV_ITS ---
Trent Wooten Age: 73 Gender: M : 1950 Exam Date: 10/08/2024 09:32 Ordering Phys: Ines Granger MD ([email or web address]) Technologist: Exam [place] [facility] [place]ication: cp cad BP: 135 / 80 HR: 130 Rhythm: Sinus Technical Quality: Adequate MEASUREMENTS (Male / Female) Normal Values 2D ECHO LV Diastolic Diameter PLAX 4.3 cm 4.2 - 5.9 / 3.9 - 5.3 cm IVS Diastolic Thickness 1.5 cm 0.6 - 1.0 / 0.6 - 0.9 cm IVS Systolic Thickness 2.0 cm LVPW Diastolic Thickness 1.5 cm 0.6 - 1.0 / 0.6 - 0.9 cm LVPW Systolic Thickness 2.3 cm LVOT Diameter 2.0 cm LV Ejection Fraction 2D Teich 68.8 % LV Ejection Fraction MOD 4C 46.2 % LV Ejection Fraction MOD 2C 39.4 % LV Ejection Fraction 2C AL 37.9 % LA Diameter 4.3 cm RA Systolic Volume 4C AL 45.6 ml RA Systolic Volume 4C MOD 44.0 ml LA Sys Volume AL 64.8 cm cubed LA Sys Volume Index AL 25.8 cm cubed/m squared Aorta at Sinotubular Diameter 2.8 cm M-MODE LA Ao Ratio MM 1.6 AV Cusp Separation MM 1.4 cm DOPPLER AV Peak Velocity 194.0 cm/s LVOT Peak Velocity 114.0 cm/s AV Area Cont Eq vti 1.7 cm squared AV Area Cont Eq pk 1.8 cm squared MV Peak Velocity 128.5 cm/s MV Area PHT 2.6 cm squared Mitral E to A Ratio 0.8 TV Peak Velocity 207.0 cm/s TR Peak Velocity 255.0 cm/s TR Peak Gradient 26.0 mmHg TV Peak E Velocity 91.0 cm/s PV Peak Velocity 168.0 cm/s FINDINGS Left Ventricle Normal LV size with slightly diminished ejection fraction 50%. Mild diffuse hypokinesia of the septum and the anteroseptal segment. Grade I/IV diastolic dysfunction (abnormal relaxation filling pattern), normal to mildly elevated filling pressures. Right Ventricle Normal right ventricular size and systolic function. Right Atrium Mildly increased right atrial size. Left Atrium The left atrium is normal in size. Mitral Valve Moderate mitral annular calcification. Aortic Valve Minimally thickened aortic valve Tricuspid Valve Trace tricuspid valve regurgitation. Estimated pulmonary artery peak systolic pressure 29 mmHg Pulmonic Valve Pulmonic valve not well visualized. Pericardium Normal pericardium without effusion. Aorta Normal ascending aorta dimension. IVC Inferior vena cava not visualized. CONCLUSIONS Normal LV size with slightly diminished ejection fraction 50% (visual). Mild diffuse hypokinesia of the septum and the anteroseptal segment. Grade I/IV diastolic dysfunction (abnormal relaxation filling pattern), normal to mildly elevated filling pressures. Moderate mitral annular calcification. Minimally thickened aortic valve. Trace tricuspid valve regurgitation. Estimated pulmonary artery peak systolic pressure 29 mmHg. There is no pericardial effusion. There are no intracardiac masses. Compared to the study from 07/13/2023, there may not be a significant change Dr Ines Granger MD FAC (Electronically Signed) Final Date: 10 October 2024 18:25 S
== END 2024-10-08 08:48 | disposition home or self-care (01) ==
PROVIDERS: PCP Nurse Practitioner Family; Visit Provider Internal Medicine Cardiovascular Disease
DX: R07.9 Chest pain, unspecified (principal); R93.1 Abnormal findings on diagnostic imaging of heart and coronary circulation; I51.7 Cardiomegaly; I34.81 Nonrheumatic mitral (valve) annulus calcification
CPT/HCPCS: 93306

== ENCOUNTER 2024-10-24 09:26 | Outpatient (RCR) | payer MEDICARE, SELFPAY | END 2024-10-24 23:59 | disposition home or self-care (01) | LOC: SPT 09:26 | PROVIDERS: PCP Nurse Practitioner Family; Visit Provider Nurse Practitioner Family | DX: M48.062 Spinal stenosis, lumbar region with neurogenic claudication (principal) | CPT/HCPCS: 97161 ==

== ENCOUNTER 2024-10-25 06:30 | Outpatient (RCR) | payer MEDICARE, SELFPAY | END 2024-11-24 23:59 | disposition home or self-care (01) | LOC: SPT 06:30 | PROVIDERS: Visit Provider Nurse Practitioner Family | DX: M48.062 Spinal stenosis, lumbar region with neurogenic claudication (principal) | CPT/HCPCS: 97110 ==

== ENCOUNTER → 2024-11-13 08:38 | Outpatient (BNVA) | payer MEDICARE, SELFPAY | PROVIDERS: Visit Provider Orthopaedic Surgery | DX: M48.062 Spinal stenosis, lumbar region with neurogenic claudication (principal) | CPT/HCPCS: 99213 ==

== ENCOUNTER → 2024-11-18 09:25 | Outpatient (BNVA) | payer MEDICARE, SELFPAY | PROVIDERS: Visit Provider Podiatrist Foot & Ankle Surgery | DX: E11.42 Type 2 diabetes mellitus with diabetic polyneuropathy (principal); L60.3 Nail dystrophy; G62.9 Polyneuropathy, unspecified; B35.3 Tinea pedis; Z79.84 Long term (current) use of oral hypoglycemic drugs; Z79.4 Long term (current) use of insulin | CPT/HCPCS: 11721 ==

== ENCOUNTER 2024-11-25 06:30 | Outpatient (RCR) | payer MEDICARE, SELFPAY | END 2024-12-10 09:59 | disposition home or self-care (01) | LOC: SPT 06:30 | PROVIDERS: PCP Nurse Practitioner Family; Visit Provider Nurse Practitioner Family | DX: M48.062 Spinal stenosis, lumbar region with neurogenic claudication (principal) | CPT/HCPCS: 97110 ==

== ENCOUNTER 2024-11-28 09:45 | Outpatient (CLI) | payer MEDICARE, SELFPAY ==
--- NOTE | 2024-11-28 09:51 | XR_ITS ---
WS: [id number] XR wrist RT min 3V* [id number] REASON FOR EXAM: PAIN IN RIGHT WRIST FINDINGS: No fracture or focal bone lesion. The joint spaces of the right wrist are intact and relatively well preserved. Minimal narrowing of the radial scaphoid joint space without significant subchondral sclerosis or osteophytosis. There is moderate osteoarthritis in the base of the thumb. XR/XR wrist RT min 3V* [id number] IMPRESSION: Minimal arthropathic change as above.
== END 2024-11-28 09:46 | disposition home or self-care (01) ==
PROVIDERS: PCP Nurse Practitioner Family; Visit Provider Nurse Practitioner Family
DX: M25.531 Pain in right wrist (principal); M18.11 Unilateral primary osteoarthritis of first carpometacarpal joint, right hand
CPT/HCPCS: 73110

== ENCOUNTER → 2024-12-25 09:49 | Outpatient (BNVA) | payer MEDICARE, SELFPAY | PROVIDERS: PCP Nurse Practitioner Family; Visit Provider Orthopaedic Surgery | DX: M48.062 Spinal stenosis, lumbar region with neurogenic claudication (principal) | CPT/HCPCS: 99213 ==

== ENCOUNTER 2025-01-16 16:43 | Emergency (ER) | payer MEDICARE, SELFPAY ==
[2025-01-16] VITALS (8 sets, daily range): BP systolic 122–138; BP diastolic 55–72; PULSE 75–89; RESP 13–18; TEMP 36.6; O2SAT 96–98; BMI 36.3
--- NOTE | 2025-01-16 16:56 | XRR_ITS ---
PROCEDURE INFORMATION: Exam: XR Chest Exam date and time: 01/16/2025 5:10 PM Age: 74 years old Clinical indication: Pain; Chest pressure; Prior surgery; Surgery date: 6+ months; Surgery type: Cabg, stent, aortic valve replacement; Additional info: Chest pain TECHNIQUE: Imaging protocol: Radiologic exam of the chest. Views: 1 view. COMPARISON: CR XR chest 1V portable [id number] 11/22/2023 7:17 PM FINDINGS: Lungs: Unremarkable. No consolidation. Pleural spaces: Unremarkable. No pleural effusion. No pneumothorax. Heart/Mediastinum: Cardiac valve replacement. No cardiomegaly. Bones/joints: Sternotomy wires noted. Visualized osseous structures are intact. XR/XR chest 1V portable [id number] IMPRESSION: No acute findings.
--- NOTE | 2025-01-16 16:57 | ECG_ITS ---
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
--- NOTE | 2025-01-16 17:02 | W.ED.CHESTPA ---
HPI - Chest Pain General: Chief Complaint: Chest Pain Stated Complaint: Chest Pain Time Seen by Provider: 01/16/25 16:52 History of Present Illness: Patient is a 74-year-old gentleman with h/o CAD, CABG, HTN, DM, HLD, presents to ED with chest pain. This is a central pressure wrapping around his chest that is now resolved after nitroglycerin x 3. EMS gave aspirin 324 mg chewed. He stated this started at 1600 today. There is shortness of breath associated with his chest pain however no nausea, or diaphoresis. From Cardiology: 03/07/2024: Patient is a 73-year-old male patient of Dr. Granger; last visit 01/14/2024. He presents today for follow-up of coronary angiogram: Ostial high-grade stenosis of the LAD, competitive flow distally, second diagonal contained moderate to severe diffuse disease. No significant stenosis in the left circumflex. Moderate to severe diffuse disease in the proximal, mid and distal segments of the RCA with competitive flow in the distal artery. SVG to distal RCA contained 50 to 60% ostial narrowing at the proximal anastomosis of the RCA, rest of the graft widely patent. TOVAR to LAD widely patent. The lesion in the RCA bypass graft was not felt to be culprit lesion. Medical management advised. No complications with right femoral cath site. He has been feeling well, no chest pain since procedure. Blood pressure well controlled. 10/08/2024 echo: EF 50%, mildly diffuse hypokinesis of septum with mildly elevated filling pressure. Associated symptoms: Reports dyspnea (now resolved with chest pain); Deny abdominal pain, fever(s), nausea or vomiting Risk Factors: Coronary artery disease risk factors: diabetes, hyperlipidemia and hypertension Related Data Home Medications ?Medication ?Instructions ?Recorded ?Confirmed aspirin 325 mg tablet 325 mg PO DAILY 09/09/19 12/25/24 lovastatin 20 mg tablet 20 mg PO DAILY 09/09/19 12/25/24 tamsulosin 0.4 mg capsule 0.4 mg PO DAILY 09/09/19 12/25/24 metformin 500 mg tablet 500 mg PO BID 12/15/22 12/25/24 potassium chloride 20 mEq See Rx Instructions .Route .COMPLEX 01/14/24 12/25/24 tablet,extended release(part/cryst) insulin detemir U-100 100 unit/mL 19 unit SUBCUT DAILY 03/07/24 12/25/24 (3 mL) subcutaneous pen (Levemir FlexPen) Previous Rx's ?Medication ?Instructions ?Recorded omeprazole 20 mg capsule,delayed 20 mg PO BID #180 caps 03/01/21 release nitroglycerin 0.4 mg sublingual 0.4 mg sublingual Q5M PRN chest 09/25/22 tablet (Nitrostat) pain #25 tabs furosemide 40 mg tablet See Rx Instructions .Route 04/04/23 .COMPLEX #90 tabs metoprolol tartrate 50 mg tablet 50 mg PO BID #180 tabs 07/03/23 diabetic shoes with 3 inserts #1 ea 01/04/24 prednisone 50 mg tablet 50 mg PO DAILY #3 tabs 02/07/24 clotrimazole-betamethasone 1 1 applic topical BID 2 weeks #15 05/12/24 %-0.05 % topical cream grams lisinopril 10 mg tablet See Rx Instructions .Route 09/02/24 .COMPLEX #90 tabs Allergies Allergy/AdvReac Type Severity Reaction Status Date / Time Iodinated Contrast Media Allergy ALGY-Hives Verified 12/25/24 10:24 streptokinase Allergy NA Verified 12/25/24 10:24 Review of Systems General: Reports: 10 or more systems reviewed and unremarkable except in HPI and below Const: Denies: fever(s), chills or body aches Eyes: Denies: change in vision or blurry vision ENMT: Denies: throat pain or odynophagia Card: Reports: chest pain (now resolved after ntg x 3 SL) Resp: Reports: dyspnea (now resolved with chest pain) GI: Denies: abdominal pain, nausea, vomiting or coffee ground emesis : Denies: flank pain or difficulty urinating Musc: Denies: neck pain or back pain Skin/Breast: Denies: rash or pruritus Neuro: Denies: headache(s) or dizziness Psych: Denies: anxiety or depression Endo: Reports: tired all the time; Denies: polydipsia PFSH ED PFSH: Medical History Hx of sleep apnea Essential hypertension Coronary artery disease Hx of aortic valve stenosis H/O hand fracture Lower urinary tract symptoms Benign prostatic hyperplasia with lower urinary tract symptoms Surgical History Hx of CABG x 2 Aortic valve replaced Inspiris 23 mm Tissue Valve H/O heart artery stent Family History Family/Other Diabetes CAD (coronary artery disease) Hypertension Cancer Multiple Social History Smoking and tobacco/nicotine status: unknown if used tobacco/nicotine Alcohol intake: never Substance/Drug Use: never Marital status: Current occupational status: retired Physical Exam Const: COMMON NORMALS: no acute distress, patient oriented x3, no limitations and alert GENERAL APPEARANCE: cooperative Neck/C-Spine: COMMON NORMALS: no JVD Chest: COMMONS NORMALS: normal inspection of the chest Resp: COMMON NORMALS: normal respiratory effort and clear to auscultation bilaterally EFFORT & INSPECTION: Yes able to speak in complete sentences AUSCULTATION: clear to auscultation bilaterally Cardio: COMMON NORMALS: no JVD, regular rate, regular rhythm and No murmurs present (Cardio) RATE: regular rate RHYTHM: regular rhythm GI: COMMON NORMALS: Normal to inspection, nondistended, normoactive bowel sounds present, Soft to palpation, non-tender and No hepatosplenomegaly present AUSCULTATION: Yes normoactive bowel sounds PALPATION: Yes Soft to palpation and Yes No hepatosplenomegaly present : COMMON NORMALS: Yes no CVA tenderness BLADDER/KIDNEY EXAM: Yes no CVA tenderness Back/Pelvis: COMMON NORMALS: no CVA tenderness Extremity: COMMON NORMALS: normal to inspection and full ROM Neuro: COMMON NORMALS: patient oriented x3 SENSORIUM/ORIENTATION: Yes alert Psych: COMMON NORMALS: mental status grossly normal Course ED course: Cardiac markers/troponin is 18 with his chest pain starting at 1600. Discussed with patient we will need to wait for additional cardiac monitors prior to decision making. As well, creatinine is minimally elevated at 1.4, with the last 1.1?1.3. Reevaluation(s): Reevaluation #1: Patient remains chest pain-free at this time. Vital Signs: Vital signs: Vital Signs Temperature 97.9 F 01/16/25 16:44 Pulse Rate 75 01/16/25 20:51 Respiratory Rate 17 01/16/25 20:51 Blood Pressure 133/66 01/16/25 20:51 Pulse Oximetry 97 01/16/25 20:51 Oxygen Delivery Me thod Room Air 01/16/25 20:00 MDM - Chest Pain Medical Decision Making Patient is a 74-year-old gentleman with known coronary disease, compliant to medications that reports to emergency room with abrupt onset of chest pressure in the central area of his chest associated with shortness of breath, relieved with nitroglycerin x 3. He received aspirin 324 mg chewed per EMS. Will obtain routine labs, x-ray, and compare EKG as well as troponin. No ST elevation on initial EKG findings. Patient has flat troponin 18, 19 on redraw. He is chest pain-free, however this did resolve with nitroglycerin. New nitroglycerin was sent to the pharmacy. Patient has been instructed to follow-up with his assistant superintendent?call for appointment on Sunday, and return to ED if further issues arise. D/w Dr. Vences whom agrees with discharge Lab Data 01/16/25 17:05 01/16/25 17:37 Radiology Impressions Chest X-Ray 01/16/25 16:56 IMPRESSION: No acute findings. Laboratory Results WBC 8.28 10^3/uL (3.29-11.43) 01/16/25 17:05 RBC 4.19 10^6/uL (3.85-5.65) 01/16/25 17:05 Hgb 12.30 g/dL (11.27-16.99) 01/16/25 17:05 Hct 37.8 % (37-53) 01/16/25 17:05 MCV 90.2 fl (82-101) 01/16/25 17:05 MCH 29.4 pg (27-33) 01/16/25 17:05 MCHC 32.5 g/dL (30-55) 01/16/25 17:05 RDW 12.5 % (12.1-15.1) 01/16/25 17:05 Plt Count 282 10^3/cmm (157-399) 01/16/25 17:05 MPV 9.5 fL (7.4-10.4) 01/16/25 17:05 Neut % (Auto) 67.4 % 01/16/25 17:05 Lymph % (Auto) 22.6 % 01/16/25 17:05 [place] % (Auto) 5.9 % 01/16/25 17:05 Eos % (Auto) 2.9 % 01/16/25 17:05 Baso % (Auto) 0.8 % 01/16/25 17:05 Neut # (Auto) 5.58 10^3/uL (1.8-7.7) 01/16/25 17:05 Lymph # (Auto) 1.9 10^3/uL (0.8-4.8) 01/16/25 17:05 [place] # (Auto) 0.5 10^3/uL (0.2-0.9) 01/16/25 17:05 Eos # (Auto) 0.2 10^3/uL (0.0-0.8) 01/16/25 17:05 Baso # (Auto) 0.1 10^3/uL (0.0-0.1) 01/16/25 17:05 Nucleated RBC % (auto) 0 % 01/16/25 17:05 Nucleated RBCs # 0.0 /100WBC 01/16/25 17:05 Sodium 138 mmol/L (136-145) 01/16/25 17:37 Potassium 4.3 mmol/L (3.5-5.1) 01/16/25 17:37 Chloride 99 mmol/L (98-107) 01/16/25 17:37 Carbon Dioxide 22 mmol/L (22-29) 01/16/25 17:37 Anion Gap 21.3 (5-19) H 01/16/25 17:37 BUN 30 mg/dL (8-23) H 01/16/25 17:37 Creatinine 1.4 mg/dL (0.7-1.2) H 01/16/25 17:37 GFR Calculation Not Reportable 01/16/25 17:37 Glucose 154 mg/dL (65-115) H 01/16/25 17:37 Calculated Osmolality 295 mOsm/kg (285-295) 01/16/25 17:37 Calcium 8.9 mg/dL (8.5-10.5) 01/16/25 17:37 Total Bilirubin 0.2 mg/dL (0.15-1.2) 01/16/25 17:37 AST 12 U/L (0-40) 01/16/25 17:37 ALT 18 U/L (0-41) 01/16/25 17:37 Alkaline Phosphatase 69 U/L (40-130) 01/16/25 17:37 Troponin T Baseline 18 ng/L (0-15) H 01/16/25 17:37 Troponin T 120 Minute 19.37 ng/L (0-15) H 01/16/25 19:32 Delta Troponin T 1.37 ABS# (0-10) 01/16/25 19:32 NT-Pro-B Natriuret Pep 116 pg/mL (0-450) 01/16/25 17:37 Total Protein 6.5 g/dL (6.6-8.7) L 01/16/25 17:37 Albumin 4.2 g/dL (3.5-5.2) 01/16/25 17:37 Globulin 2.3 g/dL (1.3-4.6) 01/16/25 17:37 All radiology interpretation(s) finalized by discharge ED provider radiology interpretation(s): no acute EKG Data EKG 1: Interpretation: Left axis deviation, sinus rhythm, no ST elevation, T wave inversion leads I, aVL, QTc 379 ms Computer generated interpretation: Sinus rhythm, pattern consistent with pulmonary disease, left anterior fascicular block Discharge Plan Discharge Patient Disposition: Home Clinical Impression: Stable angina Condition: Stable Prescriptions: No Action tamsulosin 0.4 mg capsule 0.4 mg PO DAILY aspirin 325 mg tablet 325 mg PO DAILY lovastatin 20 mg tablet 20 mg PO DAILY potassium chloride 20 mEq tablet,ER particles/crystals See Rx Instructions .ROUTE .COMPLEX Dose Instruction: TAKE 2 TABLETS BY MOUTH DAILY WITH BREAKFAST. Rx Instructions: TAKE 1 TABLETS BY MOUTH DAILY WITH BREAKFAST. clotrimazole-betamethasone 1-0.05 % cream 1 applic topical BID 14 Days Qty: 15 0RF metformin 500 mg tablet 500 mg PO BID (DME) diabetic shoes with 3 inserts See Rx Instructions .Route .MEDSUPPLY Qty: 1 0RF Rx Instructions: As directed to the shoe mikey Levemir FlexPen 100 unit/mL (3 mL) insulin pen 19 unit SUBCUT DAILY omeprazole 20 mg capsule,delayed release(DR/EC) 20 mg PO BID Qty: 180 3RF nitroglycerin [Nitrostat] 0.4 mg tablet, sublingual 0.4 mg SUBLINGUAL Q5M PRN (Reason: chest pain) Qty: 25 3RF furosemide 40 mg tablet See Rx Instructions .ROUTE .COMPLEX Qty: 90 3RF Dose Instruction: TAKE ONE TABLET BY MOUTH DAILY. Rx Instructions: TAKE ONE TABLET BY MOUTH DAILY. metoprolol tartrate 50 mg tablet 50 mg PO BID Qty: 180 3RF prednisone 50 mg tablet 50 mg PO DAILY Qty: 3 0RF Rx Instructions: Take 1 pill 13 hours prior to procedure, 1 pill 7 hours to procedure, 1 pill 1 hour prior to procedure on 02/08/24 lisinopril 10 mg tablet See Rx Instructions .ROUTE .COMPLEX Qty: 90 3RF Dose Instruction: TAKE ONE TABLET BY MOUTH DAILY Rx Instructions: TAKE ONE TABLET BY MOUTH DAILY Discharge Orders: Discharge ED (Routine); Ordered 01/16/25 Ordered By: Saundra Lr Discharge Diet: Diabetic and Low Salt Discharge Activity: Resume usual activity Patient Instructions: Chest Pain (ED) Activity Restrictions/Additional Instructions: Call your doctor/assistant superintendent on Sunday for follow-up ER appointment for chest discomfort. New nitroglycerin bottle was sent to your pharmacy. Continue your other medications, aspirin, however hold your metformin until you can follow-up on your kidney function. Continue your other medications. Repeat kidney function next week with your doctor. This was minimally elevated. Return to ED with symptoms that occur again. Print Language: Hebrew Coding Level of Care Code ED Online Advertising Manager for Jesica Romero
[2025-01-16 17:30] LABS: Basophils # 0.1 10^3/uL (0.0-0.1); Basophils % 0.8 %; Eosinophils # 0.2 10^3/uL (0.0-0.8); Eosinophils % 2.9 %; Hematocrit 37.8 % (37-53); Lymphocytes # 1.9 10^3/uL (0.8-4.8); Lymphocytes % 22.6 %; Mean Corpuscular HGB Conc 32.5 g/dL (30-55); Mean Corpuscular Hemoglobin 29.4 pg (27-33); Mean Corpuscular Volume 90.2 fl (82-101); Mean Platelet Volume 9.5 fL (7.4-10.4); Monocytes # 0.5 10^3/uL (0.2-0.9); Monocytes % 5.9 %; Neutrophils # 5.58 10^3/uL (1.8-7.7); Neutrophils % 67.4 %; Nucleated Red Blood Cells % 0 %; Platelet Count 282 10^3/cmm (157-399); Red Blood Count 4.19 10^6/uL (3.85-5.65); Red Cell Distribution Width 12.5 % (12.1-15.1); White Blood Count 8.28 10^3/uL (3.29-11.43)
[2025-01-16 18:00] LABS: Troponin(5th) Baseline 18 ng/L (0-15)
[2025-01-16 18:07] LABS: Alanine Aminotransferase 18 U/L (0-41); Albumin Level 4.2 g/dL (3.5-5.2); Alkaline Phosphatase 69 U/L (40-130); Anion Gap 21.3 (5-19); Aspartate Amino Transferase 12 U/L (0-40); Blood Urea Nitrogen 30 mg/dL (8-23); Calcium 8.9 mg/dL (8.5-10.5); Carbon Dioxide 22 mmol/L (22-29); Chloride 99 mmol/L (98-107); Globulin 2.3 g/dL (1.3-4.6); Glucose 154 mg/dL (65-115); NT Pro B Type Natriuretic Pept 116 pg/mL (0-450); Osmolality Calculated 295 mOsm/kg (285-295); Potassium 4.3 mmol/L (3.5-5.1); Sodium 138 mmol/L (136-145); Total Bilirubin 0.2 mg/dL (0.15-1.2); Total Protein 6.5 g/dL (6.6-8.7)
--- NOTE | 2025-01-16 19:08 | ECG_ITS ---
[employer] Test Date: 2025-01-16 Pat Name: Trent Wooten Department: Room: Gender: Male National Account Representative: : 1950 Requested By: Saundra Lr Order Number: [id number] Reading MD: MYA WATTS Measurements Intervals [place] Rate: 80 P: 48 NH: 172 QRS: -64 QRSD: 115 T: 78 QT: 346 QTc: 400 Interpretive Statements SINUS RHYTHM PATTERN CONSISTENT WITH PULMONARY DISEASE LEFT ANTERIOR FASCICULAR BLOCK [QRS AXIS <= -45, QR IN I, RS IN II] NONSPECIFIC T-WAVE ABNORMALITY Compared to ECG 01/16/2025 16:45:58 T-wave abnormality now present Electronically Signed On 01-19-2025 19:08:20 CDT by MYA WATTS [email or web address]
[2025-01-16 19:56] LABS: Troponin 5 2HR 19.37 ng/L (0-15); Troponin 5 2HR Delta 1.37 ABS# (0-10)
== END 2025-01-16 20:50 | disposition home or self-care (01) ==
PROVIDERS: Emergency Provider Physician Assistant
DX: I25.119 Atherosclerotic heart disease of native coronary artery with unspecified angina pectoris (principal); I10 Essential (primary) hypertension; E11.9 Type 2 diabetes mellitus without complications; E78.5 Hyperlipidemia, unspecified; Z95.5 Presence of coronary angioplasty implant and graft; Z98.84 Bariatric surgery status; Z79.82 Long term (current) use of aspirin; Z79.899 Other long term (current) drug therapy
CPT/HCPCS: 36415; 71045; 80053; 83880; 84484; 85025; 93005; 99285

== ENCOUNTER → 2025-01-20 09:32 | Outpatient (BNVA) | payer MEDICARE, SELFPAY | PROVIDERS: PCP Nurse Practitioner Family; Visit Provider Podiatrist Foot & Ankle Surgery | DX: E11.69 Type 2 diabetes mellitus with other specified complication (principal); L60.3 Nail dystrophy; G62.9 Polyneuropathy, unspecified; B35.3 Tinea pedis; E11.42 Type 2 diabetes mellitus with diabetic polyneuropathy; Z79.4 Long term (current) use of insulin; Z79.84 Long term (current) use of oral hypoglycemic drugs | CPT/HCPCS: 11721; 99213 ==

== ENCOUNTER → 2025-01-27 08:58 | Outpatient (BNVA) | payer MEDICARE, SELFPAY | PROVIDERS: PCP Nurse Practitioner Family; Visit Provider Nurse Practitioner Family | DX: I25.10 Atherosclerotic heart disease of native coronary artery without angina pectoris (principal); I10 Essential (primary) hypertension; E78.5 Hyperlipidemia, unspecified; G47.33 Obstructive sleep apnea (adult) (pediatric); Z79.82 Long term (current) use of aspirin; Z95.2 Presence of prosthetic heart valve; Z95.5 Presence of coronary angioplasty implant and graft; Z95.1 Presence of aortocoronary bypass graft; Z87.891 Personal history of nicotine dependence; I25.2 Old myocardial infarction | CPT/HCPCS: 99214 ==

== ENCOUNTER 2025-01-28 12:15 | Outpatient (RCR) | payer MEDICARE, SELFPAY | END 2025-01-28 14:09 | disposition home or self-care (01) | LOC: SPT 12:15 | PROVIDERS: PCP Nurse Practitioner Family; Visit Provider Orthopaedic Surgery | DX: M54.9 Dorsalgia, unspecified (principal); G89.29 Other chronic pain | CPT/HCPCS: 97162 ==

== ENCOUNTER 2025-02-04 14:24 | Outpatient (CLI) | payer MEDICARE, SELFPAY ==
--- NOTE | 2025-02-04 14:28 | CT_ITS ---
WS: [id number] CT ABDOMEN AND PELVIS NONCONTRAST HISTORY: ABDOMINAL PAIN/DYSURIA TECHNIQUE: Imaging performed through the abdomen and pelvis. Coronal and sagittal reformats are submitted. All CT scans at [facility] use at least one of these dose optimization techniques: automated exposure control; mA and/or kV adjustment per patient size (includes targeted exams where dose is matched to clinical indication); or iterative reconstruction. DLP: 939.73 mGy.cm COMPARISON: 11/08/2023 Lower thorax: Lung bases are clear. Visualized heart is normal. No hiatal hernia. Prior CABG. Liver: Moderately enlarged liver. Diffuse hepatic steatosis. No intrahepatic duct dilatation. Gallbladder: Normal gallbladder. No pericholecystic fluid or cholelithiasis. No gallbladder wall thickening. Pancreas: Diffuse pancreatic fatty replacement. No mass. No pancreatitis. Spleen: Normal size with granulomata. Adrenal glands: Normal. No mass. Right kidney: Mild perinephric stranding. No hydronephrosis. Normal ureter. Left kidney: Mild perinephric stranding. No hydronephrosis. Normal ureter. Aorta: Mild atherosclerosis abdominal aorta with no aneurysm. No free fluid, intraperitoneal air or significant lymphadenopathy. GI tract: Stomach is distended with food products. No small bowel obstruction. No colon obstruction. No significant diverticular disease. Appendix is not definitely identified. No secondary findings of appendicitis. Abdominal wall: Negative. No hernia. Pelvis: Bilateral fat-containing inguinal canals. Urinary bladder is well distended. Prostate gland is mildly enlarged and heterogeneous encroaching upon the bladder. Osseous structures: Mild increased lumbar lordosis and curvature. Hypertrophic endplate osteophytes in the lumbar spine. Bone island at L1. CT/CT kidney stone 64412 IMPRESSION: 1. No renal obstruction or mass. 2. Mild perinephric stranding is chronic. 3. Moderate hepatomegaly with diffuse hepatic steatosis. 4. No ascites or adenopathy. 5. Mild atherosclerosis aorta. 6. Prostate gland enlargement.
== END 2025-02-04 14:25 | disposition home or self-care (01) ==
LOC: RAD 14:26
PROVIDERS: PCP Nurse Practitioner Family; Visit Provider Nurse Practitioner Family
DX: N40.1 Benign prostatic hyperplasia with lower urinary tract symptoms (principal); R30.0 Dysuria; K76.0 Fatty (change of) liver, not elsewhere classified; I70.0 Atherosclerosis of aorta; R10.9 Unspecified abdominal pain
CPT/HCPCS: 74176

== ENCOUNTER → 2025-03-24 09:43 | Outpatient (BNVA) | payer MEDICARE, SELFPAY | PROVIDERS: PCP Nurse Practitioner Family; Visit Provider Podiatrist Foot & Ankle Surgery | DX: E11.42 Type 2 diabetes mellitus with diabetic polyneuropathy (principal); L60.3 Nail dystrophy; G62.9 Polyneuropathy, unspecified; B35.3 Tinea pedis; Z79.84 Long term (current) use of oral hypoglycemic drugs; Z79.4 Long term (current) use of insulin | CPT/HCPCS: 11721 ==

== ENCOUNTER 2025-04-23 15:09 | Emergency (ER) | payer MEDICARE, SELFPAY ==
[2025-04-23 15:14] VITALS: BP 107/64; PULSE 105; RESP 18; TEMP 37.1; O2SAT 95; BMI 37.1
--- OUTSIDE RECORDS SUMMARY | 2025-04-23 15:17 | XMS_ITS | Clinical Summary ---
Author Organization [facility] de Address [address] [place] [address] Phone Care Team Providers Care Civil Rights Attorney Name Role Phone Erica Martinez ELLA Primary Care Provider [phone] Allergies Active Allergy Reactions Criticality Noted Date Comments Iodinated Contrast Media Rash Low 02/08/2016 Medications nitroglycerin (NITROSTAT) 0.4 mg Tablet, Sublingual Place 0.4 mg under tongue every 5 minutes as needed for Chest Pain. Active omeprazole magnesium (PriLOSEC) 20 mg Tablet, Delayed Release (E.C.) Take 20 mg by mouth 2 times daily. Active lovastatin (MEVACOR) 20 mg tablet Take 20 mg by mouth daily. Active aspirin (ZARA) 325 mg tablet Take 325 mg by mouth daily. Active baclofen (LIORESAL) 10 mg tablet Take 10 mg by mouth 3 times daily as needed for Pain. Active tamsulosin (FLOMAX) 0.4 mg capsule Take 0.4 mg by mouth daily. Active acetaminophen (TYLENOL) 325 mg tablet Take 2 Tablets (650 mg) by mouth every 6 hours as needed for Other (See Comment) (See admin instructions ). 2021 Active metoprolol tartrate (LOPRESSOR) 50 mg tablet Take 1 Tablet (50 mg) by mouth 3 times daily. 90 Tablet 2 2021 Active furosemide (Lasix) 40 mg tabletIndicatio ns:S/P CABG x 2,S/P AVR (aortic valve replacement) Take 1 Tablet (40 mg) by mouth daily. 30 Tablet 1 01/30/2022 Active potassium chloride (K-TAB) 20 mEq Extended Release tabletIndicatio ns:S/P CABG x 2,S/P AVR (aortic valve replacement) Take 2 Tablets (40 mEq) by mouth daily with breakfast. 30 Tablet 1 01/30/2022 Active baclofen (LIORESAL) 10 mg/mL oral suspension compound Take by mouth. 09/19/2018 Active tamsulosin (FLOMAX) 0.4 mg capsule Take 0.4 mg by mouth daily. 09/19/2018 Active baclofen (LIORESAL) 10 mg tablet Take 10 mg by mouth 3 times daily as needed for Pain (Hiccups). 09/19/2018 Active omeprazole (PriLOSEC) 20 mg Capsule, Delayed Release(E.C.) Take 20 mg by mouth daily. 09/17/2017 Active lisinopriL (PRINIVIL) 5 mg tablet Take 10 mg by mouth daily . 02/08/2016 Active nitroglycerin (NITROSTAT) 0.4 mg Tablet, Sublingual Place 0.4 mg under tongue every 5 minutes as needed for Chest Pain. 02/08/2016 Active carvediloL (COREG) 3.125 mg tablet 02/09/2016 Active aspirin (ECOTRIN EC) 325 mg Tablet, Delayed Release (E.C.) Take 81 mg by mouth daily . 02/08/2016 Active lovastatin (MEVACOR) 20 mg tablet Take 20 mg by mouth daily with supper. 02/08/2016 Active Active Problems Problem Noted Date Diagnosed Date S/P CABG x 2 12/22/2021 S/P AVR (aortic valve replacement) 12/22/2021 Poor dentition 12/10/2021 Dental caries 12/10/2021 Dental abscess 12/10/2021 Overview (12/10/2021): Possible Obesity (BMI 30.0-34.9) 12/07/2021 Severe aortic stenosis 12/05/2021 Chest pain with moderate risk for cardiac etiolo gy 12/05/2021 Benign essential HTN 12/05/2021 Mixed hyperlipidemia 12/05/2021 Atherosclerosis of coronary artery of [place] 12/05/2021 Zenkers diverticulum 10/07/2019 History of transoral excision of Zenker's divert iculum 10/07/2019 Pain in both hands 04/26/2016 Numbness and tingling in both hands 02/08/2016 Cervical myelopathy 02/08/2016 Obstructive sleep apnea Encounters Date Type Department Care Team Description 04/14/2025 External Device Data [facility] ABSTRACTION Provider, Abstract 02/10/2025 External Device Data [facility] ABSTRACTION Provider, Abstract from Last 3 Months Social History Tobacco Use Types Packs/Day Years Used Date Smoking Tobacco: Former Cigarettes Q uit: 08/27/1984 Smokeless Tobacco: Former Quit: 09/27/2006 Alcohol Use Standard Drinks/Week Comments No 0 (1 standard drink = 0.6 oz pur e alcohol) Sex and Gender Information Value Date Recorded Sex Assigned at Not on file Legal Sex Male 5:52 AM 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 MD Gender Identity Not on file Sexual Orientation Not on file Last Filed Vital Signs Vital Sign Reading Time Taken Comments Blood Pressure 120/62 04/15/2024 10:04 AM CDT Pulse 82 04/12/2023 10:37 AM CDT Temperature 36.6 C (97.8 F) 2021 11:17 AM CDT Respiratory Rate 18 2021 11:17 AM CDT Oxygen Saturation 96% 01/30/2022 10:55 AM CDT Inhaled Oxygen Concentration - - Weight 104.3 kg (230 lb) 04/15/2024 10:04 AM CDT Height 167.6 cm (5' 6 ) 04/15/2024 10:04 AM CDT Body Mass Index 37.12 04/15/2024 10:04 AM CDT Plan of Treatment Health Maintenance Due Date Last Done Comments DIABETES ANNUAL FOOT EXAM 12/28/1967 DIABETES ANNUAL RETINAL EXAM 12/28/1967 DIABETES MICROALBUMIN ANNUAL SCREEN 12/28/1967 LDL CHOLESTEROL ANNUAL 12/28/1967 DTAP/TDAP/TD VACCINES (1 - Tdap) 1968 PNEUMOCOCCAL VACCINE 50+ YEA RS (1 of 2 - PCV) 1968 FIT-DNA Q 3 years 1994 FIT/FOBT Q 1 year 1994 Flex Sig/CT Colonography Q 5 years 1994 ZOSTER VACCINE (1 of 2) 12/28/1999 DIABETES HBA1C Q 6 MONTHS 11/01/20222021, 12/06/2021, 06/19/2017, Additional history exists COVID-19 Vaccine ( - 2023-2 5 season) 2024 06/23/2021, 11/03/2020, 10/06/2020 RSV VACCINE (60+ or ) (1 - 1-dose 75+ series) 2024 INFLUENZA VACCINE (#1) 2025 COLORECTAL SCREENING 12/08/2025 12/09/2015 Colorectal Cancer Screening 12/08/2025 Medical Devices Implanted Type Area Director Of Catering Sales Device Identifier Shelf Expiration Date Model / Serial / Lot Clip Ligating Horizon Red [id number] - - [id number] Implanted:Qty: 1 on 12/21/2021 by Alan Roy MD at [facility] Clip N/A: Heart [employer] [id number] 08/29/2026 / / [id number] Hemostatic Surgifoam [id number] Implanted:Qty: 1 on 12/21/2021 by Alan Roy MD at [facility] Hemostatic N/A: Heart [employer] [id number] 06/16/20251973 / / [id number] Marker Anastomark Coronry Ss Distal W/ Ervin Amgm-D - [id number] Implanted:Qty: 1 on 12/21/2021 by Alan Roy MD at [facility] Other N/A: Heart [employer] 07/26/2024 AMGM-D / / [id number] Marker Anastomark Coronry Ss Distal W/ Ervin Amgm-D - [id number] Implanted:Qty: 1 on 12/21/2021 by Alan Roy MD at [facility] Other N/A: Heart [employer] 07/26/2024 AMGM-D / / [id number] Vlv Aortic Inspiris 23mm [id number] - [id number] Implanted:Qty: 1 on 12/21/2021 by Alan Roy MD at [facility] Valve N/A: Heart [employer] [id number] 06/29/2025 [id number] / [id number] / Description:aortic valve rep lacement Procedures Procedure Name Priority Date/Time Associated Diagnosis Comments HEMOGLOBIN A1C Routine 12/06/2021 12:59 AM CDT from Last 3 Months or Most Recently Relevant to Health Maintenance Results * (ABNORMAL) HEMOGLOBIN A1C (12/06/2021 12:59 AM CDT) HEMOGLOBIN A1C 6.4(H) <=5.6 % 12/09/2021 11:39 AM CDT [facility] [employer] [facility] EST. AVG GLUCOSE, A1C 137 mg/dL 12/09/2021 11:39 AM CDT [facility] Blood Venipuncture / Unknown 12/06/2021 12:59 AM CDT 12/06/2021 1:30 AM CDT Narrative [facility] - 12/09/2021 11:39 AM CDT HGB A1C INTERPRETATION NORMAL: <5.7% PRE-DIABETES: 5.7 - 6.4% DIABETES: 6.5% OR GREATER Haydee Giordano SHRIMP POND LABORER CHEMISTRY ORDERABLES Final Re sult [facility] CLIA # [id number] [facility] [address] from Last 3 Months or Most Recently Relevant to Health Maintenance Insurance [facility] [id number] Advance Directives For more information, please contact: [phone] * Full Code (Latest Code Status on File) Date Activated Date Inactivated Comments 12/21/2021 4:27 PM 2021 8:03 PM * Full Code Date Activated Date Inactivated Comments 12/15/2021 9:26 AM 12/21/2021 4:27 PM * Default Full Code - Needs Discussion Date Activated Date Inactivated Comments 12/05/2021 2:59 AM 12/09/2021 10:23 PM Care Teams Civil Rights Attorney Relationship Specialty Start Date End Date Erica Martinez FNP [address] [place] [address] PCP - General NURSE PRACTITIONER 09/17/17
--- OUTSIDE RECORDS SUMMARY | 2025-04-23 15:17 | XMS_ITS | Clinical Summary ---
Author Organization [facility] Address [address] [place] [address] Phone Care Team Providers Care Frit Coater Name Role Phone Erica Martinez [employer] COMP[employer] HEARINGS OFFICER Primary Care Provider [phone] Allergies Active Allergy Reactions Criticality Noted Date Comments Iodinated Contrast Media Rash Low 02/08/2016 Medications lovastatin (MEVACOR) 20 mg tablet Take 20 mg by mouth daily with supper. Active lisinopril (PRINIVIL) 5 mg tablet Take 10 mg by mouth daily . Active nitroglycerin (NITROSTAT) 0.4 mg Tablet, Sublingual Place 0.4 mg under tongue every 5 minutes as needed for Chest Pain. Active aspirin (ECOTRIN EC) 325 mg Tablet, Delayed Release (E.C.) Take 81 mg by mouth daily . Active carvedilol (COREG) 3.125 mg tablet 02/09/2016 Active omeprazole (PriLOSEC) 20 mg Capsule, Delayed Release(E.C.) Take 20 mg by mouth daily. Active baclofen (LIORESAL) 10 mg/mL oral suspension compound Take by mouth. Active baclofen (LIORESAL) 10 mg tablet Take 10 mg by mouth 3 times daily as needed for Pain (Hiccups). Active tamsulosin (FLOMAX) 0.4 mg capsule Take 0.4 mg by mouth daily. Active lisinopril (PRINIVIL) 10 mg tablet TAKE 1 TABLET TWO TIMES DAILY 09/24/2019 Active Active Problems Problem Noted Date Diagnosed Date Zenkers diverticulum 10/07/2019 History of transoral excision of Zenker's divert iculum 10/07/2019 Pain in both hands 04/26/2016 Numbness and tingling in both hands 02/08/2016 Cervical myelopathy 02/08/2016 Social History Tobacco Use Types Packs/Day Years Used Date Smoking Tobacco: Former Cigarettes Q uit: 08/27/1984 Smokeless Tobacco: Former Quit: 09/27/2006 Tobacco Cessation:Counseling Given: No Alcohol Use Standard Drinks/Week Comments No 0 (1 standard drink = 0.6 oz pur e alcohol) Sex and Gender Information Value Date Recorded Sex Assigned at Not on file Legal Sex Male 2:53 PM CDT Gender Identity Not on file Sexual Orientation Not on file Last Filed Vital Signs Vital Sign Reading Time Taken Comments Blood Pressure 126/50 01/27/2021 10:54 AM CDT Pulse 72 01/27/2021 10:54 AM CDT Temperature - - Respiratory Rate - - Oxygen Saturation 95% 05/17/2018 1:10 PM CDT Inhaled Oxygen Concentration - - Weight 94.3 kg (208 lb) 01/27/2021 10:54 AM CDT Height 167.6 cm (5' 6 ) 01/27/2021 10:54 AM CDT Body Mass Index 33.57 01/27/2021 10:54 AM CDT Plan of Treatment Health Maintenance Due Date Last Done Comments DTAP/TDAP/TD VACCINES (1 - Tdap) 1968 FIT-DNA Q 3 years 1994 FIT/FOBT Q 1 year 1994 Flex Sig/CT Colonography Q 5 years 1994 PNEUMOCOCCAL VACCINE 50+ YEARS (1 of 1 - PCV) 12/28/19 00 ZOSTER VACCINE (1 of 2) 12/28/1999 RSV VACCINE (60+ or ) (1 - 1-dose 75+ series) 2024 INFLUENZA VACCINE (#1) 2025 COLORECTAL SCREENING 12/08/2025 12/09/2015 Colorectal Cancer Screening 12/08/2025 Insurance [facility] [place] [address] MEDICARE PART A AND B Care Teams Frit Coater Relationship Specialty Start Date End Date Erica Martinez FNP PCP - General NURSE PRACTITIONER 09/17/17
--- NOTE | 2025-04-23 16:24 | CTR_ITS ---
PROCEDURE INFORMATION: Exam: CT Head Without Contrast Exam date and time: 04/23/2025 4:32 PM Age: 74 years old Clinical indication: Injury or trauma; Fall; Blunt trauma (contusions or hematomas); Without loss of consciousness TECHNIQUE: Imaging protocol: Computed tomography of the head without contrast. Radiation optimization: All CT scans at this facility use at least one of these dose optimization techniques: automated exposure control; mA and/or kV adjustment per patient size (includes targeted exams where dose is matched to clinical indication); or iterative reconstruction. COMPARISON: CT head wo con* [id number] 03/22/2023 9:15 PM RADIATION DOSE METRICS: Total DLP (mGy-cm): 1103.1 FINDINGS: Brain: Mild global parenchymal volume loss.Patchy areas periventricular and subcortical white matter hypoattenuation, likely the sequela of microvascular ischemic changes. No loss of dupree-white differentiation. No acute intracranial hemorrhage. No mass effect or midline shift. Cerebral ventricles: No ventriculomegaly. Paranasal sinuses: Visualized sinuses are unremarkable. No fluid levels. Mastoid air cells: Visualized mastoid air cells are well aerated. Bones: Unremarkable. No acute fracture. Soft tissues: Subcutaneous scalp swelling/hematoma overlying the left frontal calvarium. CT/CT head wo con* [id number] IMPRESSION: No acute intracranial hemorrhage.
--- NOTE | 2025-04-23 16:24 | XR_ITS ---
WS: [id number] Exam: XR ankle LT min 3V* [id number] Date/Time of Exam: 04/23/2025 4:30 PM Reason For Exam: fall No fracture or dislocation. The ankle mortise is equidistant. Normal soft tissues. XR/XR ankle LT min 3V* [id number] IMPRESSION: 1. No fracture or other significant finding.
--- NOTE | 2025-04-23 16:24 | CTR_ITS ---
PROCEDURE INFORMATION: Exam: CT Cervical Spine Without Contrast Exam date and time: 04/23/2025 4:32 PM Age: 74 years old Clinical indication: Injury or trauma; Fall; Blunt trauma TECHNIQUE: Imaging protocol: Computed tomography of the cervical spine without contrast. Radiation optimization: All CT scans at this facility use at least one of these dose optimization techniques: automated exposure control; mA and/or kV adjustment per patient size (includes targeted exams where dose is matched to clinical indication); or iterative reconstruction. COMPARISON: CT neck wo con [id number] 07/31/2019 11:48 AM RADIATION DOSE METRICS: Total DLP (mGy-cm): 274.1 FINDINGS: Bones: No acute fracture. There is grade 1 retrolisthesis of C3 on C4. Multilevel degenerative changes of the cervical spine with facet arthropathy, uncovertebral hypertrophy and multilevel disc height loss with posterior disc osteophyte complexes. There is up to moderate spinal canal narrowing the C3-C4 and C5-C6 levels. There is up to severe neural foraminal narrowing the bilateral C3-C4, left C4-C5, bilateral C5-C6 and bilateral C6-C7 neural foramen. Posterior left 3rd rib fracture, subacute to chronic in appearance. Lungs: Lung apices are normal. Soft tissues: There is circumferential esophageal wall thickening in the visualized portions of the esophagus. CT/CT cervical spin wo con* [id number] IMPRESSION: 1. No acute cervical spine fracture. 2. Multilevel degenerative changes of the cervical spine with up to moderate spinal canal narrowing and multilevel severe neural foraminal narrowing as above. 3. Circumferential esophageal wall thickening, partially visualized. Recommend correlation with history, prior imaging if available and/or endoscopy as clinically indicated.
--- NOTE | 2025-04-23 16:24 | XR_ITS ---
WS: [id number] Exam: XR elbow LT min 3V* [id number] Date/Time of Exam: 04/23/2025 4:30 PM Reason For Exam: fall DLP: No acute fracture. No joint effusion. Unremarkable soft tissues. XR/XR elbow LT min 3V* [id number] IMPRESSION: 1. Negative LEFT elbow.
--- NOTE | 2025-04-23 16:31 | W.ED.FALL ---
HPI - Fall General: Chief Complaint: Fall Stated Complaint: Fall, lac to jehovah's witness Time Seen by Provider: 04/23/25 16:04 Source: patient and family Mode of arrival: wheelchair Limitations: other (Hard of hearing) History of Present Illness: Patient is a 74-year-old male who presents emergency department after a fall just prior to arrival. He states that he tripped while outside, and caused him to fall down a couple of steps and struck the left side of his head, his left elbow, and his left ankle. He has been ambulatory since, no neurological symptoms reported. He is not on any blood thinner. He did not lose consciousness. There is a laceration associated to his left forehead with bleeding controlled on arrival. He is very hard of hearing, but family in the room helps to provide history. No other injuries associated with this fall. There were no symptoms preceding the fall. MD complaint: fall Onset (ago): minute(s) Fall from: down stairs (#) (2-3) Fall witnessed: yes, by family Place fall occurred: home Loss of consciousness: None Location of injury: head and face Location of injury - extremities: Left: elbow and ankle Associated symptoms-after fall: Denies abdominal pain, chest pain, confusion, headache(s), lightheadedness or neck pain Related Data Home Medications ?Medication ?Instructions ?Recorded ?Confirmed aspirin 325 mg tablet 325 mg PO DAILY 09/09/19 03/24/25 lovastatin 20 mg tablet 20 mg PO DAILY 09/09/19 03/24/25 tamsulosin 0.4 mg capsule 0.4 mg PO DAILY 09/09/19 03/24/25 metformin 500 mg tablet 500 mg PO BID 12/15/22 03/24/25 potassium chloride 20 mEq See Rx Instructions .Route .COMPLEX 01/14/24 03/24/25 tablet,extended release(part/cryst) insulin detemir U-100 100 unit/mL 19 unit SUBCUT DAILY 03/07/24 03/24/25 (3 mL) subcutaneous pen (Levemir FlexPen) semaglutide 0.25 mg or 0.5 mg (2 mg SUBCUT 01/27/25 03/24/25 mg/1.5 mL) subcutaneous pen injector (Ozempic) Previous Rx's ?Medication ?Instructions ?Recorded omeprazole 20 mg capsule,delayed 20 mg PO BID #180 caps 03/01/21 release nitroglycerin 0.4 mg sublingual 0.4 mg sublingual Q5M PRN chest 09/25/22 tablet (Nitrostat) pain #25 tabs furosemide 40 mg tablet See Rx Instructions .Route 04/04/23 .COMPLEX #90 tabs metoprolol tartrate 50 mg tablet 50 mg PO BID #180 tabs 07/03/23 clotrimazole-betamethasone 1 1 applic topical BID 2 weeks #15 05/12/24 %-0.05 % topical cream grams lisinopril 10 mg tablet See Rx Instructions .Route 09/02/24 .COMPLEX #90 tabs diabetic shoes with 3 inserts #1 ea 01/20/25 Allergies Allergy/AdvReac Type Severity Reaction Status Date / Time Iodinated Contrast Media Allergy ALGY-Hives Verified 03/24/25 09:45 streptokinase Allergy NA Verified 03/24/25 09:45 Review of Systems General: Reports: 10 or more systems reviewed and unremarkable except in HPI and below Const: Reports: other (Reports fall and head injury); Denies: fever(s), chills or fatigue Eyes: Denies: change in vision ENMT: Denies: throat pain, ear or mastoid pain or nasal discharge Card: Denies: chest pain, palpitations, swelling of feet/ankles or lightheadedness Resp: Denies: dyspnea, productive cough or wheezing GI: Denies: abdominal pain, nausea, vomiting, diarrhea or constipation : Denies: flank pain, difficulty urinating, dysuria or urinary frequency Musc: Reports: joint pain (Left elbow and left ankle); Denies: neck pain, back pain or limited range of motion Skin/Breast: Reports: new lesions (Laceration to left forehead); Denies: rash Neuro: Denies: headache(s), numbness in extremities, weakness in extremities, dizziness, confusion, behavioral changes, Slurred speech present or seizure-like activity PFSH ED PFSH: Medical History Obesity Hx of myocardial infarction Hx of sleep apnea Essential hypertension Coronary artery disease Hx of aortic valve stenosis H/O hand fracture Lower urinary tract symptoms Benign prostatic hyperplasia with lower urinary tract symptoms Surgical History Hx of CABG x 2 Aortic valve replaced Inspiris 23 mm Tissue Valve H/O heart artery stent Family History Family/Other Diabetes CAD (coronary artery disease) Hypertension Cancer Multiple Social History Smoking and tobacco/nicotine status: former use of tobacco/nicotine Alcohol intake: never Substance/Drug Use: never Marital status: Current occupational status: retired Physical Exam Const: COMMON NORMALS: no acute distress, patient oriented x3 and no limitations GENERAL APPEARANCE: cooperative, comfortable and well developed ORIENTATION/CONSCIOUSNESS: Yes awake, Yes oriented to person, Yes oriented to place and Yes oriented to time HENMT: COMMON NORMALS: hearing grossly normal bilaterally HEAD & SCALP: no Benavides's sign, no hematoma, no palpable skull fracture and no raccoon eyes OTHER: 2 cm laceration to left forehead, no active bleeding. Superficial. Eye: COMMON NORMALS: Equal, round and reactive pupils present, EOMs intact bilaterally and conjunctivae normal CONJUNCTIVA: Yes conjunctivae normal PUPIL: Yes Equal, round and reactive pupils present Neck/C-Spine: COMMON NORMALS: full ROM, supple and no JVD Resp: COMMON NORMALS: normal respiratory effort, No retractions, No use of accessory muscles and clear to auscultation bilaterally AUSCULTATION: clear to auscultation bilaterally Cardio: COMMON NORMALS: no JVD, regular rate, regular rhythm, No clicks present (Cardio), No murmurs present (Cardio) and No rub (Cardio) RATE: regular rate RHYTHM: regular rhythm GI: COMMON NORMALS: Normal to inspection, nondistended, normoactive bowel sounds present, Soft to palpation and non-tender AUSCULTATION: Yes normoactive bowel sounds PALPATION: Yes Soft to palpation RECTAL EXAM: Yes deferred Back/Pelvis: COMMON NORMALS: thoracic and lumbar spine normal to inspection, no thoracic nor lumbar tenderness and thoraco-lumbar ROM normal Extremity: COMMON NORMALS: full ROM and capillary refill normal NARRATIVE EXTREMITY EXAM: Abrasion to left elbow, full range of motion and nontender to palpation. Mild pain with range of motion of the left ankle. Normal gait. Neuro: COMMON NORMALS: patient oriented x3, moves all extremities, no focal motor deficits and no sensory deficits noted SENSORIUM/ORIENTATION: Yes oriented to person, Yes oriented to place and Yes oriented to time Psych: COMMON NORMALS: mental status grossly normal and Normal thought process present THOUGHT PROCESS: Normal thought process present Skin: COMMON NORMALS: no rashes or lesions noted GENERAL SKIN EXAM: no rashes or lesions noted Procedures Laceration Laceration 1: Site: face Size (cm): 2 Description: linear and clean Depth: simple, single layer Local Anesthetic: lidocaine 1% and with epi Amount of anesthesia used (mL): 1 Pre-repair: wound explored Skin layer closed with: nylon Size (cm): 5-0 Number of sutures: 2 Technique: simple, interrupted Course Vital Signs: Vital signs: Vital Signs Temperature 98.8 F 04/23/25 15:14 Pulse Rate 105 H 04/23/25 15:14 Respiratory Rate 18 04/23/25 15:14 Blood Pressure 107/64 04/23/25 15:14 Pulse Oximetry 95 04/23/25 15:14 Oxygen Delivery Me thod Room Air 04/23/25 15:14 MDM - Fall Medical Decision Making This patient presented after falling outside, hitting his head and injuring his left elbow and the left shoulder. Neurologically intact, no use of blood thinner no loss of consciousness or other concerning historical elements as covered in the HPI. Head and neck CT were unremarkable for any acute findings. X-rays were also unremarkable. Laceration to his forehead was repaired, see the procedure note. Noted to be ambulatory during examination in as well as out of the emergency department, informed him to rest and recover at home and return precautions are given. Lab Data Radiology Impressions Cervical Spine CT 04/23/25 16:24 IMPRESSION: 1. No acute cervical spine fracture. 2. Multilevel degenerative changes of the cervical spine with up to moderate spinal canal narrowing and multilevel severe neural foraminal narrowing as above. 3. Circumferential esophageal wall thickening, partially visualized. Recommend correlation with history, prior imaging if available and/or endoscopy as clinically indicated. Head CT 04/23/25 16:24 IMPRESSION: No acute intracranial hemorrhage. All radiology interpretation(s) finalized by discharge Discharge Plan Discharge Patient Disposition: Home Clinical Impression: Fall Qualifiers: Encounter type: initial encounter Qualified Code(s): W19.XXXA - Unspecified fall, initial encounter CHI (closed head injury) Qualifiers: Encounter type: initial encounter Qualified Code(s): S09.90XA - Unspecified injury of head, initial encounter Forehead laceration Qualifiers: Encounter type: initial encounter Qualified Code(s): S01.81XA - Laceration without foreign body of other part of head, initial encounter Abrasion of elbow, left Qualifiers: Encounter type: initial encounter Qualified Code(s): S50.312A - Abrasion of left elbow, initial encounter Contusion of ankle, left Qualifiers: Encounter type: initial encounter Qualified Code(s): S90.02XA - Contusion of left ankle, initial encounter Condition: Stable Prescriptions: No Action tamsulosin 0.4 mg capsule 0.4 mg PO DAILY aspirin 325 mg tablet 325 mg PO DAILY lovastatin 20 mg tablet 20 mg PO DAILY potassium chloride 20 mEq tablet,ER particles/crystals See Rx Instructions .ROUTE .COMPLEX Dose Instruction: TAKE 2 TABLETS BY MOUTH DAILY WITH BREAKFAST. Rx Instructions: TAKE 1 TABLETS BY MOUTH DAILY WITH BREAKFAST. clotrimazole-betamethasone 1-0.05 % cream 1 applic topical BID 14 Days Qty: 15 0RF Ozempic 0.25 mg or 0.5 mg(2 mg/1.5 mL) pen injector SUBCUT metformin 500 mg tablet 500 mg PO BID Levemir FlexPen 100 unit/mL (3 mL) insulin pen 19 unit SUBCUT DAILY (DME) diabetic shoes with 3 inserts See Rx Instructions .Route .MEDSUPPLY Qty: 1 0RF Rx Instructions: As directed to the shoe mikey omeprazole 20 mg capsule,delayed release(DR/EC) 20 mg PO BID Qty: 180 3RF nitroglycerin [Nitrostat] 0.4 mg tablet, sublingual 0.4 mg SUBLINGUAL Q5M PRN (Reason: chest pain) Qty: 25 3RF furosemide 40 mg tablet See Rx Instructions .ROUTE .COMPLEX Qty: 90 3RF Dose Instruction: TAKE ONE TABLET BY MOUTH DAILY. Rx Instructions: TAKE ONE TABLET BY MOUTH DAILY. metoprolol tartrate 50 mg tablet 50 mg PO BID Qty: 180 3RF lisinopril 10 mg tablet See Rx Instructions .ROUTE .COMPLEX Qty: 90 3RF Dose Instruction: TAKE ONE TABLET BY MOUTH DAILY Rx Instructions: TAKE ONE TABLET BY MOUTH DAILY Discharge Orders: Discharge ED (Routine); Ordered 04/23/25 Ordered By: Casey Stanley Referrals: Jasmin Lucero FNP [Primary Care Provider, Nurse Practitioner] Patient Instructions: Patient Portal & [facility] Instructions Activity Restrictions/Additional Instructions: Please have the sutures out in 5 days, general wound care with warm soap and water, avoiding any soaking of the wound. May apply topical bacitracin or Neosporin. Please keep out of the sun. Monitor for any signs of infection. Please follow-up with your regular provider next week for general reevaluation. Return with any new or worsening. Print Language: Kazakh Coding Level of Care Code ED Founder And President for Jesica Romero
== END 2025-04-23 19:42 | disposition home or self-care (01) ==
PROVIDERS: Emergency Provider Physician Assistant; PCP Nurse Practitioner Family
DX: S01.81XA Laceration without foreign body of other part of head, initial encounter (principal); S09.8XXA Other specified injuries of head, initial encounter; S50.312A Abrasion of left elbow, initial encounter; S90.02XA Contusion of left ankle, initial encounter; Z79.82 Long term (current) use of aspirin; Z79.84 Long term (current) use of oral hypoglycemic drugs; Z87.891 Personal history of nicotine dependence; I10 Essential (primary) hypertension; I25.10 Atherosclerotic heart disease of native coronary artery without angina pectoris; Z95.1 Presence of aortocoronary bypass graft; W10.8XXA Fall (on) (from) other stairs and steps, initial encounter
CPT/HCPCS: 12011; 70450; 72125; 73080; 73610; 99284

== ENCOUNTER → 2025-06-04 08:26 | Outpatient (BNVA) | payer MEDICARE, SELFPAY | PROVIDERS: PCP Nurse Practitioner Family; Visit Provider Podiatrist Foot & Ankle Surgery | DX: E11.42 Type 2 diabetes mellitus with diabetic polyneuropathy (principal); L60.3 Nail dystrophy; G62.9 Polyneuropathy, unspecified; B35.3 Tinea pedis; Z79.84 Long term (current) use of oral hypoglycemic drugs; Z79.4 Long term (current) use of insulin | CPT/HCPCS: 11721 ==